=== PATIENT | male | born 1945 | race Two or more races ===

== ENCOUNTER 2020-03-24 10:37 | Inpatient (IN) | payer MEDICARE ==
[~2020-03-24 10:37] MED LIST: HUMAN PROTHROMBIN COMPLX 500 UNIT/16 ML VIAL IV ONE
[2020-03-24] MEDS ORDERED: PHYTONADIONE 10 MG in SODIUM CHLORIDE 0.9% 50 ML IVPB STA (10:55)
--- NOTE | 2020-03-24 11:13 | ED ---
General Adult HPI - General Chief complaint: GI Bleed Stated complaint: GI Bleed Time Seen by Provider: 03/24/20 10:40 Source: patient, EMS, RN notes reviewed, old records reviewed Mode of arrival: EMS Limitations: no limitations - History of Present Illness Initial comments: 74-year-old male history of A. fib on Coumadin presenting with 6 hours of bright red rectal bleeding. Patient transported by EMS stable blood pressure, he had his INR checked at home just prior to departure and it was greater than 6. He was in A. fib with RVR. Patient states that the bleeding began 6 hours prior to arrival. He is a poor historian, unable to give exact details of previous medical history. He does state he is on Coumadin. - Related Data Home Medications Medication Instructions Recorded Confirmed Baclofen [Lioresal] 10 mg PO TID PRN 03/24/20 03/24/20 Cyanocobalamin (Vitamin B-12) 1,000 mcg PO DAILY 03/24/20 03/24/20 [Vitamin B-12] Digoxin 250 mcg PO DAILY 03/24/20 03/24/20 Folic Acid 1 mg PO DAILY 03/24/20 03/24/20 Furosemide [Lasix] 20 mg PO DAILY 03/24/20 03/24/20 HYDROcodone/APAP 7.5-325MG [[place] 1 tab PO TID PRN 03/24/20 03/24/20 7.5-325] Metoprolol Tartrate [Lopressor] 25 mg PO BID 03/24/20 03/24/20 Omeprazole [PriLOSEC] 20 mg PO DAILY 03/24/20 03/24/20 Potassium Chloride ER [K-Dur 20] 20 meq PO DAILY 03/24/20 03/24/20 Warfarin [Coumadin] 3 mg PO HS 03/24/20 03/24/20 Allergies Allergy/AdvReac Type Severity Reaction Status Date / Time ciprofloxacin [From Cipro] Allergy Hallucinati Verified 03/24/20 11:12 ons Review of Systems ROS Statement: Those systems with pertinent positive or pertinent negative responses have been documented in the HPI. ROS Other: All systems not noted in ROS Statement are negative. Past Medical History Past Medical History: GI Bleed History of Any Multi-Drug Resistant Organisms: ESBL, MRSA Date of last positivie culture/infection: 10/10/18-MRSA; 02/25/20-ESBL E.coli MDRO Source:: Wound-MRSA (site not specified); Urine ESBL Past Psychological History: No Psychological Hx Reported Smoking Status: Unknown if ever smoked Past Alcohol Use History: None Reported Past Drug Use History: None Reported General Exam Limitations: no limitations General appearance: lethargic, in distress Head exam: Present: atraumatic, normocephalic Eye exam: Present: normal appearance, PERRL ENT exam: Present: mucous membranes dry Neck exam: Present: normal inspection Respiratory exam: Present: normal lung sounds bilaterally. Absent: respiratory distress Cardiovascular Exam: Present: tachycardia, irregular rhythm GI/Abdominal exam: Present: soft. Absent: distended, tenderness, guarding Rectal exam: Present: bloody stool (Significant bright red rectal bleeding throu ghout the diaper as well as multiple towels. There is minimal rectal bleeding at the time of exam.) Extremities exam: Present: other (Contracted bilateral lower extremities) Neurological exam: Present: alert Psychiatric exam: Present: normal affect, normal mood Skin exam: Present: pallor Course Vital Signs 03/24/20 03/24/20 03/24/20 10:41 11:34 12:01 Temperature 97.4 F L 97.9 F Pulse Rate 126 H 126 H 105 H Respiratory 18 18 16 Rate Blood Pressure 141/97 112/76 114/77 O2 Sat by Pulse 95 100 100 Oximetry EKG Findings - EKG Comments: EKG Findings:: Differential with RVR, rate of 136, QRS duration 82, QTC 427, no ST segment elevation Medical Decision Making - Medical Decision Making 74-year-old male presenting with GI bleed, bright red rectal bleeding. There is a significant amount of blood saturating multiple towels as well as the patient's diaper. He is in A. fib with RVR he has a marginal blood pressure. He states that his INR level at home prior to departing with EMS was 6. He is started on case kcentra, vitamin K, he is given 1 unit of packed RBCs. His hemoglobin is 11.7. He has a lactic acidosis. I did discuss case with the admitting physician Dr. Del Angel, patient will be admitted to the ICU. Discussed case with gastroenterology Dr. Moreau. - Lab Data Result diagrams: 03/24/20 11:10 03/24/20 11:10 Lab Results 03/24/20 03/24/20 03/24/20 Range/Units 11:10 11:10 11:10 WBC 21.5 H (3.8-10.6) k/uL RBC 4.29 L (4.30-5.90) m/uL Hgb 11.7 L (13.0-17.5) gm/dL Hct 37.6 L (39.0-53.0) % MCV 87.5 (80.0-100.0) fL MCH 27.1 (25.0-35.0) pg MCHC 31.0 (31.0-37.0) g/dL RDW 16.0 H (11.5-15.5) % Plt Count 456 H (150-450) k/uL MPV 7.9 Neutrophils % 83 % Lymphocytes % 10 % Monocytes % 4 % Eosinophils % 2 % Basophils % 0 % Neutrophils # 17.9 H (1.3-7.7) k/uL Lymphocytes # 2.2 (1.0-4.8) k/uL Monocytes # 0.8 (0-1.0) k/uL Eosinophils # 0.4 (0-0.7) k/uL Basophils # 0.1 (0-0.2) k/uL Hypochromasia Slight PT 54.0 H (9.0-12.0) sec INR 5.4 H* (<1.2) APTT 51.0 H (22.0-30.0) sec Sodium 134 L (137-145) mmol/L Potassium 4.9 (3.5-5.1) mmol/L Chloride 103 (98-107) mmol/L Carbon Dioxide 24 (22-30) mmol/L Anion Gap 7 mmol/L BUN 14 (9-20) mg/dL Creatinine 0.87 (0.66-1.25) mg/dL Est GFR (CKD-EPI)AfAm >90 (>60 ml/min/1.73 sqM) Est GFR (CKD-EPI)NonAf 85 (>60 ml/min/1.73 sqM) Glucose 153 H (74-99) mg/dL Plasma Lactic Acid Bart (0.7-2.0) mmol/L Calcium 8.5 (8.4-10.2) mg/dL Magnesium 1.9 (1.6-2.3) mg/dL Total Bilirubin 0.8 (0.2-1.3) mg/dL AST 20 (17-59) U/L ALT 16 (4-49) U/L Alkaline Phosphatase 118 (38-126) U/L Total Protein 7.0 (6.3-8.2) g/dL Albumin 2.9 L (3.5-5.0) g/dL Blood Type Recheck Bld Type Recheck Status Spec Expiration Date 03/24/20 03/24/20 Range/Units 11:10 11:10 WBC (3.8-10.6) k/uL RBC (4.30-5.90) m/uL Hgb (13.0-17.5) gm/dL Hct (39.0-53.0) % MCV (80.0-100.0) fL MCH (25.0-35.0) pg MCHC (31.0-37.0) g/dL RDW (11.5-15.5) % Plt Count (150-450) k/uL MPV Neutrophils % % Lymphocytes % % Monocytes % % Eosinophils % % Basophils % % Neutrophils # (1.3-7.7) k/uL Lymphocytes # (1.0-4.8) k/uL Monocytes # (0-1.0) k/uL Eosinophils # (0-0.7) k/uL Basophils # (0-0.2) k/uL Hypochromasia PT (9.0-12.0) sec INR (<1.2) APTT (22.0-30.0) sec Sodium (137-145) mmol/L Potassium (3.5-5.1) mmol/L Chloride (98-107) mmol/L Carbon Dioxide (22-30) mmol/L Anion Gap mmol/L BUN (9-20) mg/dL Creatinine (0.66-1.25) mg/dL Est GFR (CKD-EPI)AfAm (>60 ml/min/1.73 sqM) Est GFR (CKD-EPI)NonAf (>60 ml/min/1.73 sqM) Glucose (74-99) mg/dL Plasma Lactic Acid Bart 4.5 H* (0.7-2.0) mmol/L Calcium (8.4-10.2) mg/dL Magnesium (1.6-2.3) mg/dL Total Bilirubin (0.2-1.3) mg/dL AST (17-59) U/L ALT (4-49) U/L Alkaline Phosphatase (38-126) U/L Total Protein (6.3-8.2) g/dL Albumin (3.5-5.0) g/dL Blood Type Recheck No Previous Record Bld Type Recheck Status CABO Indicated Spec Expiration Date 03/27/2020 - 2309 Critical Care Time Critical Care Time: Yes Total Critical Care Time: 35 Disposition Clinical Impression: Hematochezia, Supratherapeutic INR, Hemorrhagic shock, Acute blood loss anemia Disposition: ADMITTED IP TO THIS [facility] Condition: Serious Is patient prescribed a controlled substance at d/c from ED?: No Referrals: Robel Diaz MD [Primary Care Provider] - 1-2 days Decision to Admit Reason: Admit from EC Decision Date: 03/24/20 Decision Time: 12:13
[2020-03-24] MEDS ORDERED: HUMAN PROTHROMBIN COMPLX IV ONE (11:15)
[2020-03-24 11:31] LABS: Basophils # (A) 0.1 k/uL (0-0.2); Basophils % (A) 0 %; Eosinophils # (A) 0.4 k/uL (0-0.7); Eosinophils % (A) 2 %; HCT 37.6 % (39.0-53.0); HGB 11.7 gm/dL (13.0-17.5); Hypochromasia Slight; Lymphocytes # (A) 2.2 k/uL (1.0-4.8); Lymphocytes % (A) 10 %; MCH 27.1 pg (25.0-35.0); MCV 87.5 fL (80.0-100.0); Mean Platelet Volume 7.9; Monocytes # (A) 0.8 k/uL (0-1.0); Monocytes % (A) 4 %; Neutrophils # (A) 17.9 k/uL (1.3-7.7); Neutrophils % (A) 83 %; Platelet Count 456 k/uL (150-450); RBC 4.29 m/uL (4.30-5.90); WBC 21.5 k/uL (3.8-10.6)
[2020-03-24 11:39] LABS: Carbon Dioxide 24 mmol/L (22-30); Chloride 103 mmol/L (98-107); Glucose 153 mg/dL (74-99); Potassium 4.9 mmol/L (3.5-5.1); Sodium 134 mmol/L (137-145)
[2020-03-24 11:40] LABS: ALT 16 U/L (4-49); AST 20 U/L (17-59); African American GFR (CKD) >90 (>60 ml/min/1.73 sqM); Albumin 2.9 g/dL (3.5-5.0); Alkaline Phosphatase 118 U/L (38-126); Anion Gap 7 mmol/L; Blood Urea Nitrogen 14 mg/dL (9-20); Calcium 8.5 mg/dL (8.4-10.2); Magnesium 1.9 mg/dL (1.6-2.3); Non-African American GFR(CKD) 85 (>60 ml/min/1.73 sqM); Total Bilirubin 0.8 mg/dL (0.2-1.3)
[2020-03-24] MEDS ORDERED: NALOXONE 0.4 MG/ML 1 ML VIAL IV PRN ×2 (11:44→13:10)
[2020-03-24] MEDS ORDERED: PANTOPRAZOLE 40 MG/10 ML VIAL IVP STA (11:50)
[2020-03-24 11:54] LABS: INR 5.4 (<1.2)
[2020-03-24] MEDS: SODIUM CHLORIDE 0.9% 1,000 ML IV SCH ×4 (13:10→15:48)
[2020-03-24] MEDS ORDERED: LORazepam 2 MG/ML INJ IV PRN (13:10)
[2020-03-24] MEDS ORDERED: ACETAMINOPHEN TAB 325 MG TAB PO PRN (13:10)
[2020-03-24] MEDS ORDERED: MORPHINE SULFATE 4 MG/ML SYRINGE ONE (13:13)
[2020-03-24 13:24] LABS: HCT 35.9 % (39.0-53.0); HGB 11.4 gm/dL (13.0-17.5); Hypochromasia Slight; MCH 27.9 pg (25.0-35.0); MCHC 31.8 g/dL (31.0-37.0); MCV 87.5 fL (80.0-100.0); Mean Platelet Volume 7.8; Platelet Count 374 k/uL (150-450); RDW 15.7 % (11.5-15.5)
--- NOTE | 2020-03-24 14:20 | P.CNPUL ---
History of Present Illness Consult date: 03/24/20 Chief complaint: GI bleeding History of present illness: Is a 74-year-old male patient with known history of chronic atrial fibrillation has been maintained on long-term and to coagulation with warfarin. The patient presented to the emergency department with bright red blood in his rectum. Obviously patient was having GI bleed and this started approximately 6 hours prior to the coming into the emergency. The patient transported via EMS to the emergency department. At the time of arrival, his INR was at 5.4 with a PT of 54 and a PTT of 51.0. Initial hemoglobin was 11.7. The patient was in atrial fibrillation with rapid ventricular response. His initial lactic acid level was at 4.5. Hemodynamically had a heart rate of 126 with a blood pressure of 141/97 and the respiration of 18. The patient was given vitamin K, total of 10 mg and the patient was also given K-Centra, Another units of fresh frozen plasma was also ordered in the emergency department.. No nausea. No hematemesis. No coffee-ground emesis. No abdominal pain or distention. . No intake of aspirin or any other antiplatelet agents. The patient admits to take a few tablets of nonsteroidal anti-inflammatory medications approximately a week ago as the patsy ent was having pain. 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 He does have chronic contractures of the upper and lower extremity as the patient has a component of quadriplegia, exact cause is not known to me at this point in time.. No previous history of GI bleeding. His last colonoscopy was done more than 5 years ago at [facility] the results of no known to us at this point in time. No 70 peptic ulcer disease. Review of Systems Constitutional: Denies chills, Denies fever Eyes: denies as per HPI, denies blurred vision, denies bulging eye, denies decreased vision, denies diplopia, denies discharge, denies dry eye, denies irritation, denies itching, denies pain, denies photophobia, denies loss of peripheral vision, denies loss of vision, denies tunnel vision/blind spots Ears: right: decreased hearing, deny: ear discharge, earache, tinnitus Ears, nose, mouth and throat: Reports as per HPI Breasts: absent: as per HPI, gynecomastia Cardiovascular: Reports dyspnea on exertion Respiratory: Reports as per HPI Gastrointestinal: Reports BRBPR Genitourinary: Reports as per HPI Musculoskeletal: Reports as per HPI Musculoskeletal: absent: ankle pain, ankle stiffness, ankle swelling Integumentary: Reports as per HPI Neurological: Reports as per HPI Psychiatric: Reports as per HPI Endocrine: Reports as per HPI Hematologic/Lymphatic: Reports as per HPI Allergic/Immunologic: Reports as per HPI Past Medical History Past Medical History: Atrial Fibrillation, GI Bleed Additional Past Medical History / Comment(s): Osteomyelitis, arhtritis, 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 History of Any Multi-Drug Resistant Organisms: ESBL, MRSA Date of last positivie culture/infection: 10/10/18-MRSA; 02/25/20-ESBL E.coli MDRO Source:: Wound-MRSA (site not specified); Urine ESBL Additional Past Surgical History / Comment(s): wisdom teeth Past Psychological History: No Psychological Hx Reported Smoking Status: Never smoker Past Alcohol Use History: None Reported Past Drug Use History: None Reported - Past Family History Mother Additional Family Medical History / Comment(s): heart disease, diabetes Medications and Allergies Home Medications Medication Instructions Recorded Confirmed Type Baclofen [Lioresal] 10 mg PO TID PRN 03/24/20 03/24/20 History Cyanocobalamin (Vitamin B-12) 1,000 mcg PO DAILY 03/24/20 03/24/20 History [Vitamin B-12] Digoxin 250 mcg PO DAILY 03/24/20 03/24/20 History Folic Acid 1 mg PO DAILY 03/24/20 03/24/20 History Furosemide [Lasix] 20 mg PO DAILY 03/24/20 03/24/20 History HYDROcodone/APAP 7.5-325MG [[place] 1 tab PO TID PRN 03/24/20 03/24/20 History 7.5-325] Metoprolol Tartrate [Lopressor] 25 mg PO BID 03/24/20 03/24/20 History Omeprazole [PriLOSEC] 20 mg PO DAILY 03/24/20 03/24/20 History Potassium Chloride ER [K-Dur 20] 20 meq PO DAILY 03/24/20 03/24/20 History Warfarin [Coumadin] 3 mg PO HS 03/24/20 03/24/20 History Allergies Allergy/AdvReac Type Severity Reaction Status Date / Time ciprofloxacin [From Cipro] Allergy Hallucinati Verified 03/24/20 11:12 ons Physical Exam Vitals: Vital Signs Temp Pulse Resp BP Pulse Ox 03/24/20 12:21 110 H 18 93/64 98 03/24/20 12:01 97.9 F 105 H 16 114/77 100 03/24/20 11:34 126 H 18 112/76 100 03/24/20 10:41 97.4 F L 126 H 18 141/97 95 Intake and Output 03/23/20 03/24/20 03/24/20 22:59 06:59 14:59 Other: Weight 83.915 kg General appearance: lethargic, not in acute respiratory distress and the patient is awake and alert and following commands and answering questions appropriately. Head exam: Head exam was generally normal. There was no scleral icterus or corneal arcus. Mucous membranes were moist. Eye exam: Present: normal appearance, PERRL ENT exam: Present: mucous membranes dry Neck exam: Present: normal inspection Respiratory exam: Lungs were clear to auscultation and percussion, and with no rmal diaphragmatic excursion. No wheezes or rales were noted. Cardiovascular Exam: Present: tachycardia, irregular rhythm, positive S1-S2 and there is no significant murmurs appreciated. GI/Abdominal exam: Present: soft. Absent: distended, tenderness, guarding Rectal exam: Present: bloody stool (Significant bright red rectal bleeding throughout the diaper as well as multiple towels. There is minimal rectal bleeding at the time of exam. Extremities exam: chronically contracted lower extremities bilaterally related to functional quadriplegia, no cyanosis or clubbing, trace edema. The patient has muscle atrophy and weakness in lower extremities and upper extremities. He is able to move his arms, unable to move his feet. He also has chronic ulceration of the lower extremities bilaterally Neurological exam: Present: alert Psychiatric exam: Present: normal affect, normal mood Skin exam: Present: pallor, the patient has chronic was in lower extremities bilaterally more so on the left and the patient has stage IV sacral decubitus ulceration, pressure ulcer. The wound is somewhat necrotic. Results - Laboratory Findings CBC and BMP: 03/24/20 12:57 03/24/20 11:10 PT/INR, D-dimer PT 54.0 sec (9.0-12.0) H 03/24/20 11:10 INR 5.4 (<1.2) H* 03/24/20 11:10 Abnormal lab findings: Abnormal Labs 03/24/20 03/24/20 03/24/20 11:10 11:10 11:10 WBC 21.5 H RBC 4.29 L Hgb 11.7 L Hct 37.6 L RDW 16.0 H Plt Count 456 H Neutrophils # 17.9 H PT 54.0 H INR 5.4 H* APTT 51.0 H Sodium 134 L Glucose 153 H Plasma Lactic Acid Bart Albumin 2.9 L Crossmatch 03/24/20 03/24/20 11:10 11:10 WBC RBC Hgb Hct RDW Plt Count Neutrophils # PT INR APTT Sodium Glucose Plasma Lactic Acid Bart 4.5 H* Albumin Crossmatch See Detail Assessment and Plan Plan: 1 acute GI bleeding, likely of a lower GI source as the patient was having bright red blood per rectum and large amounts. This wasn't further [place] by development of coagulopathy and toxic PT/INR 2 chronic atrial fibrillation with rapid ventricular response secondary to above and possibly component of hypovolemia 3 subtherapeutic PT/INR, given vitamin K and K Centra and fresh frozen plasma 4 acute blood loss anemia secondary to above. I think the patient's blood count is a reflection of hemoconcentration and the true hemoglobin order to level of hemoglobin is lower than this. 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, the exact cause is not clear to me at this point in time 6 acute leukocytosis, likely reactive 7 second decubitus ulcer, stage IV 8 lower extremity wounds, superficial Plan Give the patient total of 2 L of IV fluids normal saline Monitor hemoglobin Transfuse if there is a significant drop in hemoglobin below 8 keep the patient nothing by mouth for now Keep the patient on IV Protonix GI consultation Monitor PT/INR Monitor hemoglobin Keep the maintenance fluid of normal saline at the rate of 75 mL an hour Surgical consult regarding the sacral decubitus ulcer No need for antibiotics at this point in time. We'll continue to follow.
[2020-03-24 14:53] LABS: Appearance,Urine Clear (Clear); Bilirubin,Urine Negative (Negative); Blood,Urine Negative (Negative); Color,Urine Yellow; Glucose,Urine (UA) Negative (Negative); Ketones,Urine Negative (Negative); Leukocyte Esterase,Urine Negative (Negative); Nitrite,Urine Negative (Negative); PH, Urine 5.5 (5.0-8.0); Protein,Urine Trace (Negative); Specific Gravity,Urine 1.019 (1.001-1.035)
--- NOTE | 2020-03-24 15:28 | P.GSCN ---
History of Present Illness Consult date: 03/24/20 Reason for Consult: Stage IV sacral wound, unstageable wound to his right foot and right fourth toe. Requesting physician: Tiff Vasquez History of present illness: This is a 74-year-old gentleman who follows with Dr. Robel Diaz on an outpatient basis. The patient has a past medical history significant for chron ic atrial fibrillation and is on Coumadin for anticoagulation as an outpatient, rheumatoid arthritis and functional quadriplegia. The patient presented to the emergency department here at [facility] with complaints of bright red rectal bleeding for 6 hours prior to presentation. His initial lab results showed an INR of 5.4, PTT 54, PTT 51.0, hemoglobin 11.7 and a lactic acid level of 4.5. He denies any recent fever, chills, nausea, vomiting, hematemesis, or hemoptysis. The patient also has a history of a stage IV sacral decubitus ulcer, chronic ulcerations to his right foot and left lower extremity. He also has a chronic contracture of the right lower extremity. Due to the patient's chronic stage IV sacral decubitus ulcer and ulcerations to his bilateral lower extremities a consult was placed to wound care for further evaluation and treatment recommendations. Review of Systems A 14 point review of systems was completed was negative except as mentioned in the HPI. 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 History of Any Multi-Drug Resistant Organisms: ESBL, MRSA Year Discovered:: 10/10/18-MRSA; 02/25/20-ESBL E.coli MDRO Source:: Wound-MRSA (site not specified); Urine ESBL Additional Past Surgical History / Comment(s): wisdom teeth Past Psychological History: No Psychological Hx Reported Smoking Status: Never smoker Past Alcohol Use History: None Reported Past Drug Use History: None Reported - Past Family History Mother Additional Family Medical History / Comment(s): heart disease, diabetes Medications and Allergies Home Medications Medication Instructions Recorded Confirmed Type Baclofen [Lioresal] 10 mg PO TID PRN 03/24/20 03/24/20 History Cyanocobalamin (Vitamin B-12) 1,000 mcg PO DAILY 03/24/20 03/24/20 History [Vitamin B-12] Digoxin 250 mcg PO DAILY 03/24/20 03/24/20 History Folic Acid 1 mg PO DAILY 03/24/20 03/24/20 History Furosemide [Lasix] 20 mg PO DAILY 03/24/20 03/24/20 History HYDROcodone/APAP 7.5-325MG [[place] 1 tab PO TID PRN 03/24/20 03/24/20 History 7.5-325] Metoprolol Tartrate [Lopressor] 25 mg PO BID 03/24/20 03/24/20 History Omeprazole [PriLOSEC] 20 mg PO DAILY 03/24/20 03/24/20 History Potassium Chloride ER [K-Dur 20] 20 meq PO DAILY 03/24/20 03/24/20 History Warfarin [Coumadin] 3 mg PO HS 03/24/20 03/24/20 History Allergies Allergy/AdvReac Type Severity Reaction Status Date / Time ciprofloxacin [From Cipro] Allergy Hallucinati Verified 03/24/20 11:12 ons Surgical - Exam Vital Signs Temp Pulse Resp BP Pulse Ox 97.4 F L 126 H 18 141/97 95 03/24/20 10:41 03/24/20 10:41 03/24/20 10:41 03/24/20 10:41 03/24/20 10:41 - General Awake and alert, following commands and answering questions appropriately. Denies any complaints of pain when lying still, very tender and sensitive to touch to his bilateral lower extremities. chronically ill - Eyes PERRL, normal ocular movement, no icteric - ENT normal pinna, normal nares, normal mucosa, no hearing loss, no congestion - Neck Neck is supple. no masses, no bruits, trachea midline, no venous distension - Respiratory Lung sounds essentially clear throughout. No wheezes, rhonchi or crackles. Respirations are symmetrical and nonlabored. - Cardiovascular Irregular rhythm and controlled rate. S1 and S2 present, negative for S3, gallop or murmur. - Abdomen Abdomen is soft, nontender and nondistended. Active bowel sounds present in all 4 abdominal quadrants. No guarding or rigidity. No organomegaly appreciated. - Genitourinary Deferred - Integumentary Skin is warm and pale. Stage IV sacral decubitus ulceration, with areas of necrosis. Right lateral foot wound with eschar unstageable and to his right fourth toe. Scattered ulcerations to his left lower extremity. - Neurologic Awake, alert and oriented. - Musculoskeletal Contracture to his right lower extremity. - Psychiatric oriented to time, oriented to person, oriented to place, speech is normal, memory intact Results - Labs 03/24/20 12:57 03/24/20 11:10 Abnormal Lab Results - Last 24 Hours (Table) 03/24/20 03/24/20 03/24/20 Range/Units 11:10 11:10 11:10 WBC 21.5 H (3.8-10.6) k/uL RBC 4.29 L (4.30-5.90) m/uL Hgb 11.7 L (13.0-17.5) gm/dL Hct 37.6 L (39.0-53.0) % RDW 16.0 H (11.5-15.5) % Plt Count 456 H (150-450) k/uL Neutrophils # 17.9 H (1.3-7.7) k/uL PT 54.0 H (9.0-12.0) sec INR 5.4 H* (<1.2) APTT 51.0 H (22.0-30.0) sec Sodium 134 L (137-145) mmol/L Glucose 153 H (74-99) mg/dL Plasma Lactic Acid Bart (0.7-2.0) mmol/L Albumin 2.9 L (3.5-5.0) g/dL Urine Protein (Negative) Crossmatch 03/24/20 03/24/20 03/24/20 Range/Units 11:10 11:10 12:57 WBC 26.0 H (3.8-10.6) k/uL RBC 4.10 L (4.30-5.90) m/uL Hgb 11.4 L (13.0-17.5) gm/dL Hct 35.9 L (39.0-53.0) % RDW 15.7 H (11.5-15.5) % Plt Count (150-450) k/uL Neutrophils # (1.3-7.7) k/uL PT (9.0-12.0) sec INR (<1.2) APTT (22.0-30.0) sec Sodium (137-145) mmol/L Glucose (74-99) mg/dL Plasma Lactic Acid Bart 4.5 H* (0.7-2.0) mmol/L Albumin (3.5-5.0) g/dL Urine Protein (Negative) Crossmatch See Detail 03/24/20 03/24/20 Range/Units 14:00 14:36 WBC (3.8-10.6) k/uL RBC (4.30-5.90) m/uL Hgb (13.0-17.5) gm/dL Hct (39.0-53.0) % RDW (11.5-15.5) % Plt Count (150-450) k/uL Neutrophils # (1.3-7.7) k/uL PT (9.0-12.0) sec INR (<1.2) APTT (22.0-30.0) sec Sodium (137-145) mmol/L Glucose (74-99) mg/dL Plasma Lactic Acid Bart 2.9 H* (0.7-2.0) mmol/L Albumin (3.5-5.0) g/dL Urine Protein Trace H (Negative) Crossmatch Diabetes panel 03/24/20 Range/Units 11:10 Sodium 134 L (137-145) mmol/L Potassium 4.9 (3.5-5.1) mmol/L Chloride 103 (98-107) mmol/L Carbon Dioxide 24 (22-30) mmol/L BUN 14 (9-20) mg/dL Creatinine 0.87 (0.66-1.25) mg/dL Glucose 153 H (74-99) mg/dL Calcium 8.5 (8.4-10.2) mg/dL AST 20 (17-59) U/L ALT 16 (4-49) U/L Alkaline Phosphatase 118 (38-126) U/L Total Protein 7.0 (6.3-8.2) g/dL Albumin 2.9 L (3.5-5.0) g/dL Calcium panel 03/24/20 Range/Units 11:10 Calcium 8.5 (8.4-10.2) mg/dL Albumin 2.9 L (3.5-5.0) g/dL Pituitary panel 03/24/20 Range/Units 11:10 Sodium 134 L (137-145) mmol/L Potassium 4.9 (3.5-5.1) mmol/L Chloride 103 (98-107) mmol/L Carbon Dioxide 24 (22-30) mmol/L BUN 14 (9-20) mg/dL Creatinine 0.87 (0.66-1.25) mg/dL Glucose 153 H (74-99) mg/dL Calcium 8.5 (8.4-10.2) mg/dL Adrenal panel 03/24/20 Range/Units 11:10 Sodium 134 L (137-145) mmol/L Potassium 4.9 (3.5-5.1) mmol/L Chloride 103 (98-107) mmol/L Carbon Dioxide 24 (22-30) mmol/L BUN 14 (9-20) mg/dL Creatinine 0.87 (0.66-1.25) mg/dL Glucose 153 H (74-99) mg/dL Calcium 8.5 (8.4-10.2) mg/dL Total Bilirubin 0.8 (0.2-1.3) mg/dL AST 20 (17-59) U/L ALT 16 (4-49) U/L Alkaline Phosphatase 118 (38-126) U/L Total Protein 7.0 (6.3-8.2) g/dL Albumin 2.9 L (3.5-5.0) g/dL Assessment and Plan Assessment: 1. Chronic nonhealing sacral decubitus ulcer, stage IV 2. Lower extremity right foot unstageable wound and also to his right fourth toe 3. Acute GI bleed, more than likely secondary to coagulopathy and an INR of 5.4 4. Acute blood loss anemia, secondary to above 5. Quadriplegia related to previous spine injury 6. Acute leukocytosis, likely reactive 7. Left lower extremity superficial wounds Plan: The patient was seen and examined at his bedside in the intensive care unit by Dr. Adria Willett. His chart and diagnostics were reviewed. Recommendations for wound care to his sacral stage IV decubitus ulcer, Santyl applied daily, cover with gauze and secured with paper tape. The importance of offloading was discussed with the patient and with the nursing staff. Wound care to his right lateral foot and right fourth toe, Santyl applied daily, cover with gauze and secured with tape. Place gauze in between his toes to his bilateral feet. Honey gel to his left lower extremity superficial wounds, applied daily, cover with nonadherent dressing and Kerlix wrap and secured with paper tape. Consult dermatology to evaluate superficial wounds to his left lower extremity. The patient is not a candidate for any revascularization procedure due to his immobilization and debilitation. He will need to be followed on an outpatient basis at the wound healing center and he may benefit from a extended care facility on discharge as he will need offloading to his sacral wound as well as frequent dressing changes for wound care. Continue medical management recommendations per primary care service. More recommendations to follow based on patient's clinical course. Thank you Dr. Vasquez for this consult and we will look forward to working with you in this care of the patient. Time with Patient: Greater than 30
--- NOTE | 2020-03-24 15:29 | P.HPIM ---
History of Present Illness H&P Date: 03/24/20 Chief Complaint: Bright red blood per Rectum Patient is a 74 yo CM with a hx of A fib on coumadin, Functional quadraplegia since 2014, and chronic wounds who presented to the emergency department at the direction of his home health care nurse due to bring red blood per rectum. In the emergency department he underwent an extensive evaluation. His hemoglobin was found to be 11.7, INR 5.4, Lactic acid 4.5 and sodium 134. He was ordered for 2 units of pRBC, Kcentra, and Vitamin K IV 10 mg. He did have some transient hypotnesion which corrected with IVF. He was also noted to be in A fib with RVR. He was admitted to the ICU. On arrival to the ICU he was founf to have multiple chronic wounds with flexion contractures. 1 unti of FFP was ordered. He was also noted to have bleeding from multiple wounds on left lower extremtity. He was found to have WBC elevated at 26. Patient seen and examined at bedside and he recounts to following: He felt leaking at 0330 AM and asked for a towel, which his nurse brought him. Nurse came in AM and called the ambulance. Intermittent bleeding from streaking from bottom at home he is unsure if this was from stool or wounds. Possible hx of Colonoscopy at [facility] years ago. No light headed or dizziness, No nausea No belly pain No shortness of breath No chest pain No fevers/ chills No loss of appetite + Pain in the bottom and both knees. Review of Systems Pertinent positives and negatives as discussed in HPI, a complete review of systems was performed and all other systems are negative. 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 History of Any Multi-Drug Resistant Organisms: ESBL, MRSA Date of last positivie culture/infection: 10/10/18-MRSA; 02/25/20-ESBL E.coli MDRO Source:: Wound-MRSA (site not specified); Urine ESBL Additional Past Surgical History / Comment(s): wisdom teeth Past Psychological History: No Psychological Hx Reported Smoking Status: Never smoker Past Alcohol Use History: None Reported Past Drug Use History: None Reported Additional History: bed bound, uses a moon lift - Past Family History Mother Additional Family Medical History / Comment(s): heart disease, diabetes Medications and Allergies Home Medications Medication Instructions Recorded Confirmed Type Baclofen [Lioresal] 10 mg PO TID PRN 03/24/20 03/24/20 History Cyanocobalamin (Vitamin B-12) 1,000 mcg PO DAILY 03/24/20 03/24/20 History [Vitamin B-12] Digoxin 250 mcg PO DAILY 03/24/20 03/24/20 History Folic Acid 1 mg PO DAILY 03/24/20 03/24/20 History Furosemide [Lasix] 20 mg PO DAILY 03/24/20 03/24/20 History HYDROcodone/APAP 7.5-325MG [[place] 1 tab PO TID PRN 03/24/20 03/24/20 History 7.5-325] Metoprolol Tartrate [Lopressor] 25 mg PO BID 03/24/20 03/24/20 History Omeprazole [PriLOSEC] 20 mg PO DAILY 03/24/20 03/24/20 History Potassium Chloride ER [K-Dur 20] 20 meq PO DAILY 03/24/20 03/24/20 History Warfarin [Coumadin] 3 mg PO HS 03/24/20 03/24/20 History Allergies Allergy/AdvReac Type Severity Reaction Status Date / Time ciprofloxacin [From Cipro] Allergy Hallucinati Verified 03/24/20 11:12 ons Physical Exam Osteopathic Statement: *. No significant issues noted on an osteopathic structural exam other than those noted in the History and Physical/Consult. Vitals: Vital Signs Temp Pulse Resp BP Pulse Ox 03/24/20 12:21 110 H 18 93/64 98 03/24/20 12:01 97.9 F 105 H 16 114/77 100 03/24/20 11:34 126 H 18 112/76 100 03/24/20 10:41 97.4 F L 126 H 18 141/97 95 Intake and Output 03/23/20 03/24/20 03/24/20 22:59 06:59 14:59 Other: Weight 83.915 kg General: ill appearing, mild distress, appears at stated age Derm: Sacral wound: down to muscle tissue with fat necrosis size 9 X 5 CM Right lateral foot with necrotic tissue with eschar siz4 3 cm, round Right foot with 3,4,5 toes necrotic with sloughin Left Left leg with multiple areas of excoriation and skin sloughing, thinckening of skin with yellow caking over foot Head: atraumatic, normocephalic, symmetric Eyes: EOMI, no lid lag, anicteric sclera, pupils equal round reactive to light ENT: Nose and ears atraumatic, no thrush, no pharyngeal erythema Neck: No thyromegaly, no cervical lymphadenopathy, trachea midline, supple Mouth: no lip lesion, mucus membranes moist Cardiovascular: S1S2 reg, no murmur, positive posterior tibial pulse bilateral, no edema, capillary refill less than 2 seconds Lungs: clear to ascultation bilateral, no ronchi, no rales, no wheeze, no accessory muscle use Abdominal: soft, nontender to palpation, no guarding, no appreciable organomegaly, normal bowel sounds Ext: + gross muscle atrophy, Flexion Contractures bilateral upper extremity, Flexion contracture bilateral lower extremities with minimal extension of left knee minimal flexion of right knee. Neuro: CN II-XI grossly intact, light touch intact all 4 extremities, unable to preform finger to nose Psych: Alert, oriented, appropriate affect Results CBC & Chem 7: 03/24/20 12:57 03/24/20 11:10 Labs: Abnormal Lab Results - Last 24 Hours (Table) 03/24/20 03/24/20 03/24/20 Range/Units 11:10 11:10 11:10 WBC 21.5 H (3.8-10.6) k/uL RBC 4.29 L (4.30-5.90) m/uL Hgb 11.7 L (13.0-17.5) gm/dL Hct 37.6 L (39.0-53.0) % RDW 16.0 H (11.5-15.5) % Plt Count 456 H (150-450) k/uL Neutrophils # 17.9 H (1.3-7.7) k/uL PT 54.0 H (9.0-12.0) sec INR 5.4 H* (<1.2) APTT 51.0 H (22.0-30.0) sec Sodium 134 L (137-145) mmol/L Glucose 153 H (74-99) mg/dL Plasma Lactic Acid Bart (0.7-2.0) mmol/L Albumin 2.9 L (3.5-5.0) g/dL 03/24/20 Range/Units 11:10 WBC (3.8-10.6) k/uL RBC (4.30-5.90) m/uL Hgb (13.0-17.5) gm/dL Hct (39.0-53.0) % RDW (11.5-15.5) % Plt Count (150-450) k/uL Neutrophils # (1.3-7.7) k/uL PT (9.0-12.0) sec INR (<1.2) APTT (22.0-30.0) sec Sodium (137-145) mmol/L Glucose (74-99) mg/dL Plasma Lactic Acid Bart 4.5 H* (0.7-2.0) mmol/L Albumin (3.5-5.0) g/dL Thrombosis Risk Factor Assmnt - DVT/VTE Prophylaxis DVT/VTE Prophylaxis: Mechanical Prophylaxis ordered Assessment and Plan Assessment: Lower GI bleed with bright red blood per rectum, acute blood loss anemia - NPO - IVF - 1 unit pRBC - serial CBC - GI consult - Protonix IVP Coumadin coagulopathy with ongoing bleeding - S/P VIt K and Kcentra - FFP - Repeat INR in 6 hours with CBC Chronic A fib with RVR - conitnue digoxin - IVF - Tele - Continue to hold metoprolol due to 1 episode of hypotension Multiple ducubitus ulcers - Right foot unstageable - Sacral stage IV - Multiple areas of excoriation left leg - Suggest santyl to right foot wound - Place phelps cath - off load stage IV consider optifoam - Cover left leg with impregnated gauze. - further recs per wound care Function quadriplegia - Supportive care Leukocytosis, undetermined cause - likely related to GI bleed - ? infection of sacral ulcer - Follow CBC The patient is admitted with an anticipated greater than 2 midnight stay for evaluation of GI bleed. Surrogate decision-maker: Justino Garcia CODE STATUS:Full DVT prophylaxis: SCDs Discussed with: Patient, nursing, Jose, Dr. Amezcua, and Dr. Moreau Anticipated discharge date: 4-[address]: SNF A total of 65 minutes was spent on the care of this complex patient more than 50% of the time was spent in counseling and care coordination.
[2020-03-24] MEDS: COLLAGENASE 250 UNIT/GM OINTMENT 30 GM TUBE TOPICAL SCH (15:47)
--- NOTE | 2020-03-24 15:55 | P.CONS ---
History of Present Illness - Reason for Consult Consult date: 03/24/20 GI bleed Requesting physician: Tiff Del Angel - Chief Complaint Blood per rectum - History of Present Illness 74-year-old male with medical history significant for rheumatoid arthritis, functional quadriplegia, and chronic atrial fibrillation on Coumadin therapy who presented to the hospital with complaints of blood per rectum. Patient began having blood per rectum early this morning which continued until presentation to the emergency department. Currently in the ICU they're on no further episodes of bleeding. Patient denies any developments of abdominal pain prior to the episode but currently reports that he is somewhat uncomfortable secondary to his positioning on the bed. He denies any prior episodes of similar GI bleeding or history of peptic ulcer disease. No prior EGD reported. He denies any nausea or vomiting. He believes his last colonoscopy was at [facility] over 5 Years Ago but Is Unclear about the Details. He Does Report Occasional Use of NSAID Medications. Laboratory evaluation on presentation significant for WBC 21.5 hemoglobin 11.7, platelet count 456,000, INR 5.4, total bilirubin 0.8, alkaline phosphatase 118, AST 20 and ALT 10. Review of Systems REVIEW OF SYSTEMS: CONSTITUTIONAL: Denies any fevers, chills, weight change or fatigue. CARDIOVASCULAR: Denies any chest pain, palpitations high or low blood pressures RESPIRATORY: Denies any shortness of breath, hemoptysis or cough. GENITOURINARY: No dysuria or hematuria. MUSCULOSKELETAL: History of lower extremity contractures after osteomyelitis and rheumatoid arthritis. SKIN: Denies any new rashes or lesions, jaundice or pallor. PSYCHIATRIC: Denies any depression or anxiety. NEUROLOGY: Denies headache, denies any new focal deficits. EARS/NOSE/THROAT: No recent hearing change, congestion, nasal discharge or sore throat. EYES: No pain in eyes, discharge or change in vision. GASTROINTESTINAL: As per HPI. Past Medical History Past Medical History: GI Bleed History of Any Multi-Drug Resistant Organisms: ESBL, MRSA Year Discovered:: 10/10/18-MRSA; 02/25/20-ESBL E.coli MDRO Source:: Wound-MRSA (site not specified); Urine ESBL Past Psychological History: No Psychological Hx Reported Smoking Status: Unknown if ever smoked Past Alcohol Use History: None Reported Past Drug Use History: None Reported - Past Family History Mother Additional Family Medical History / Comment(s): heart disease, diabetes Medications and Allergies Home Medications Medication Instructions Recorded Confirmed Type Baclofen [Lioresal] 10 mg PO TID PRN 03/24/20 03/24/20 History Cyanocobalamin (Vitamin B-12) 1,000 mcg PO DAILY 03/24/20 03/24/20 History [Vitamin B-12] Digoxin 250 mcg PO DAILY 03/24/20 03/24/20 History Folic Acid 1 mg PO DAILY 03/24/20 03/24/20 History Furosemide [Lasix] 20 mg PO DAILY 03/24/20 03/24/20 History HYDROcodone/APAP 7.5-325MG [[place] 1 tab PO TID PRN 03/24/20 03/24/20 History 7.5-325] Metoprolol Tartrate [Lopressor] 25 mg PO BID 03/24/20 03/24/20 History Omeprazole [PriLOSEC] 20 mg PO DAILY 03/24/20 03/24/20 History Potassium Chloride ER [K-Dur 20] 20 meq PO DAILY 03/24/20 03/24/20 History Warfarin [Coumadin] 3 mg PO HS 03/24/20 03/24/20 History Allergies Allergy/AdvReac Type Severity Reaction Status Date / Time ciprofloxacin [From Cipro] Allergy Hallucinati Verified 03/24/20 11:12 ons Physical Exam Vitals: Vital Signs Temp Pulse Resp BP Pulse Ox 03/24/20 12:21 110 H 18 93/64 98 03/24/20 12:01 97.9 F 105 H 16 114/77 100 03/24/20 11:34 126 H 18 112/76 100 03/24/20 10:41 97.4 F L 126 H 18 141/97 95 Intake and Output 03/23/20 03/24/20 03/24/20 22:59 06:59 14:59 Other: Weight 83.915 kg On physical examination, patient appears comfortable in no apparent distress. HEAD: Normocephalic, atraumatic. EYES: No scleral icterus. No conjunctival injection. MOUTH: No lesions, tongue midline. NECK: Trachea midline, no gross abnormalities. CHEST: Decreased air entry in all lung brody. HEART: S1-S2 appreciated, regularly irregular. ABDOMEN: Soft, thin and nontender. Bowel sounds are positive. No organomegaly. No guarding or rigidity. EXTREMITIES: No pedal edema. SKIN: Bilateral lower extremity wounds currently wrapped and sacral decubitus ulcer. NEUROLOGIC: Alert and oriented x3. Results CBC & Chem 7: 03/24/20 12:57 03/24/20 11:10 Labs: Abnormal Lab Results - Last 24 Hours (Table) 03/24/20 03/24/20 03/24/20 Range/Units 11:10 11:10 11:10 WBC 21.5 H (3.8-10.6) k/uL RBC 4.29 L (4.30-5.90) m/uL Hgb 11.7 L (13.0-17.5) gm/dL Hct 37.6 L (39.0-53.0) % RDW 16.0 H (11.5-15.5) % Plt Count 456 H (150-450) k/uL Neutrophils # 17.9 H (1.3-7.7) k/uL PT 54.0 H (9.0-12.0) sec INR 5.4 H* (<1.2) APTT 51.0 H (22.0-30.0) sec Sodium 134 L (137-145) mmol/L Glucose 153 H (74-99) mg/dL Plasma Lactic Acid Bart (0.7-2.0) mmol/L Albumin 2.9 L (3.5-5.0) g/dL 03/24/20 Range/Units 11:10 WBC (3.8-10.6) k/uL RBC (4.30-5.90) m/uL Hgb (13.0-17.5) gm/dL Hct (39.0-53.0) % RDW (11.5-15.5) % Plt Count (150-450) k/uL Neutrophils # (1.3-7.7) k/uL PT (9.0-12.0) sec INR (<1.2) APTT (22.0-30.0) sec Sodium (137-145) mmol/L Glucose (74-99) mg/dL Plasma Lactic Acid Bart 4.5 H* (0.7-2.0) mmol/L Albumin (3.5-5.0) g/dL Assessment and Plan (1) Hematochezia Narrative/Plan: 74-year-old male with multiple medical comorbidities including major fibrillation on anticoagulation therapy who presented to the hospital with supratherapeutic INR and complaints of right red blood per rectum. He reports multiple episodes of painless bright red blood per rectum. No further episodes since admission. The patient's hemoglobin has remained relatively stable at 11.7. He denies any prior history of similar complaints or peptic ulcer disease. He does report occasional NSAID use with Advil, however tries not to take the medication regularly due to side effects from the medication. He believes his last colonoscopy was over 5 years ago at [facility] was unclear about the details. Unclear etiology, suspicion is for lower GI source of bleeding in the absence of elevation and BUN with differential including reticular bleed, AVM, stercoral ulcer or other etiology, rule out upper GI source of bleeding in the setting of NSAID use or other etiology. Current Visit: Yes Status: Acute Code(s): K92.1 - MELENA SNOMED Code(s): 984513226 (2) Supratherapeutic INR Current Visit: Yes Status: Acute Code(s): R79.1 - ABNORMAL COAGULATION PROFILE SNOMED Code(s): 338449853 Plan: Supportive care Nothing by mouth Continue to monitor hemoglobin and hematocrit and transfuse as needed Reversal agents ordered in the ER and by primary team for supratherapeutic INR Continue to monitor for symptoms of GI bleeding Continue PPI therapy Extensive discussion with the patient and nursing staff at bedside, and at this time the patient feels that secondary to his debility and lower extremity contractures as well as sacral ulceration he would be unable to complete a bowel prep for colonoscopy, can tentatively plan for EGD tomorrow however the patient would like to discuss with the son, with all of the risks, benefits and possible complications of the procedure explained to the patient at length If further bleeding would recommend tagged red blood cell scan for localization Thank you for allowing us to participate in the care of the patient we will continue to follow
[2020-03-24] MEDS: HYDROcodone/APAP 7.5-325MG 1 EACH TAB PO PRN ×2 (16:39→22:12)
[2020-03-24] MEDS: DIGOXIN 250 MCG TAB PO SCH (16:39)
[2020-03-24] MEDS: PANTOPRAZOLE 40 MG/10 ML VIAL IVP SCH (20:13)
[2020-03-25 00:37] LABS: Anisocytosis Slight; HCT 28.8 % (39.0-53.0); Hypochromasia Slight; MCH 28.4 pg (25.0-35.0); MCHC 31.7 g/dL (31.0-37.0); MCV 89.5 fL (80.0-100.0); Platelet Count 218 k/uL (150-450); RBC 3.22 m/uL (4.30-5.90); RDW 16.1 % (11.5-15.5); WBC 14.8 k/uL (3.8-10.6)
[2020-03-25 00:42] LABS: INR 1.2 (<1.2); Prothrombin Time 11.9 sec (9.0-12.0)
[2020-03-25 00:47] LABS: HGB 9.1 gm/dL (13.0-17.5)
[2020-03-25] MEDS: BACLOFEN 10 MG TAB PO PRN ×2 (02:35→12:27)
[2020-03-25 04:30] LABS: HCT 28.5 % (39.0-53.0); HGB 8.8 gm/dL (13.0-17.5); Hypochromasia Slight; MCH 27.5 pg (25.0-35.0); MCHC 30.8 g/dL (31.0-37.0); MCV 89.2 fL (80.0-100.0); Mean Platelet Volume 8.3; Platelet Count 218 k/uL (150-450); RDW 15.9 % (11.5-15.5); WBC 11.8 k/uL (3.8-10.6)
[2020-03-25 04:39] LABS: INR 1.1 (<1.2); Prothrombin Time 11.5 sec (9.0-12.0)
[2020-03-25 04:53] LABS: ALT 9 U/L (4-49); AST 14 U/L (17-59); African American GFR (CKD) >90 (>60 ml/min/1.73 sqM); Albumin 2.2 g/dL (3.5-5.0); Alkaline Phosphatase 80 U/L (38-126); Anion Gap 1 mmol/L; Blood Urea Nitrogen 15 mg/dL (9-20); Calcium 7.8 mg/dL (8.4-10.2); Carbon Dioxide 29 mmol/L (22-30); Chloride 105 mmol/L (98-107); Glucose 95 mg/dL (74-99); Magnesium 1.7 mg/dL (1.6-2.3); Non-African American GFR(CKD) 86 (>60 ml/min/1.73 sqM); Phosphorus 3.3 mg/dL (2.5-4.5); Potassium 4.3 mmol/L (3.5-5.1); Sodium 135 mmol/L (137-145); Total Bilirubin 1.5 mg/dL (0.2-1.3); Total Protein 5.4 g/dL (6.3-8.2)
[2020-03-25] MEDS: HYDROcodone/APAP 7.5-325MG 1 EACH TAB PO PRN (05:54)
--- NOTE | 2020-03-25 10:19 | P.PN ---
Subjective Progress Note Date: 03/25/20 Principal diagnosis: Acute GI bleed This is a 74-year-old male patient with known history of chronic atrial fibrillation has been maintained on long-term and to coagulation with warfarin. The patient presented to the emergency department with bright red blood in his rectum. Obviously patient was having GI bleed and this started approximately 6 hours prior to the coming into the emergency. The patient transported via EMS to the emergency department. At the time of arrival, his INR was at 5.4 with a PT of 54 and a PTT of 51.0. Initial hemoglobin was 11.7. The patient was in atrial fibrillation with rapid ventricular response. His initial lactic acid level was at 4.5. Hemodynamically had a heart rate of 126 with a blood pressure of 141/97 and the respiration of 18. The patient was given vitamin K, total of 10 mg and the patient was also given K-Centra, Another units of fresh frozen plasma was also ordered in the emergency department.. No nausea. No hemate mesis. No coffee-ground emesis. No abdominal pain or distention. . No intake of aspirin or any other antiplatelet agents. The patient admits to take a few tablets of nonsteroidal anti-inflammatory medications approximately a week ago as the patient was having pain. 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 He does have chronic contractures of the upper and lower extremity as the patient has a component of quadriplegia, exact cause is not known to me at this point in time.. No previous history of GI bleeding. His last colonoscopy was done more than 5 years ago at [facility] the results of no known to us at this point in time. No 70 peptic ulcer disease. The patient is seen today 03/25/2020 in follow-up in the intensive care unit. He is currently awake and alert in no acute distress. Resting comfortably in bed. He is on room air maintain O2 saturations in the 90s. He has a 0.9 normal sensory and 75 ML's per hour. His current hemoglobin is 8.8. No noted signs of upper or lower GI bleeding currently. EGD is planned for today. He does have a stage IV decubitus ulcers and colon prep for colonoscopy is not advised at this time. White count 11.8. INR 1.1. Sodium 135. Potassium 4.3. Creatinine 0.85. Albumin 2.2. Dig level 2.0. Remains on IV Protonix. He remains in atrial fibrillation with a controlled ventricular rate currently in the 60s. Hemodynamically stable. Afebrile. Objective - Vital Signs Vital signs: Vital Signs Temp 97 F L 03/25/20 04:00 Pulse 60 03/25/20 07:00 Resp 8 L 03/25/20 07:00 BP 90/46 03/25/20 07:00 Pulse Ox 99 03/25/20 07:00 Intake & Output 03/24/20 03/25/20 03/25/20 18:59 06:59 18:59 Intake Total 2534 1460 75 Output Total 560 325 30 Balance 1974 1135 45 Weight 82.2 kg 85.4 kg 85.4 kg Intake: IV 2245 900 75 Sodium Chloride 0.9% 1, 2245 900 75 000 ml @ 75 mls/hr IV . [id number] [facility] Rx#:[id number] Blood Product 289 310 Ffp 24 Cpd Unit 289 [id number] Rc As-1 Unit 310 [id number] Other 250 Rc As-1 Unit 250 [id number] Output: Urine 560 325 30 Other: Voiding Method Indwelling Catheter Indwelling Catheter - Exam General appearance: Awake, alert 75-year-old gentleman, not in acute respiratory distress and following commands and answering questions appropriately. Head exam: Head exam was generally normal. There was no scleral icterus or corneal arcus. Mucous membranes were moist. Eye exam: Present: normal appearance, PERRL ENT exam: Present: mucous membranes dry Neck exam: Present: normal inspection Respiratory exam: Lungs were clear to auscultation and percussion, and with nor mal diaphragmatic excursion. No wheezes or rales were noted. Cardiovascular Exam: Present: Irregular rhythm, positive S1-S2 and there is no significant murmurs appreciated. GI/Abdominal exam: Present: soft. Absent: distended, tenderness, guarding Extremities exam: chronically contracted lower extremities bilaterally related to functional quadriplegia, no cyanosis or clubbing, trace edema. The patient has muscle atrophy and weakness in lower extremities and upper extremities. He is able to move his arms, unable to move his feet. He also has chronic ulceration of the lower extremities bilaterally Neurological exam: Present: alert Psychiatric exam: Present: normal affect, normal mood Skin exam: Present: pallor, the patient has chronic was in lower extremities bilaterally more so on the left and the patient has stage IV sacral decubitus ulceration, pressure ulcer. The wound is somewhat necrotic. - Labs CBC & Chem 7: 03/25/20 03:41 03/25/20 03:41 Labs: Abnormal Lab Results - Last 24 Hours (Table) 03/24/20 03/24/20 03/24/20 Range/Units 11:10 11:10 11:10 WBC 21.5 H (3.8-10.6) k/uL RBC 4.29 L (4.30-5.90) m/uL Hgb 11.7 L (13.0-17.5) gm/dL Hct 37.6 L (39.0-53.0) % MCHC (31.0-37.0) g/dL RDW 16.0 H (11.5-15.5) % Plt Count 456 H (150-450) k/uL Neutrophils # 17.9 H (1.3-7.7) k/uL PT 54.0 H (9.0-12.0) sec INR 5.4 H* (<1.2) APTT 51.0 H (22.0-30.0) sec Sodium 134 L (137-145) mmol/L Glucose 153 H (74-99) mg/dL Plasma Lactic Acid Bart (0.7-2.0) mmol/L Calcium (8.4-10.2) mg/dL Total Bilirubin (0.2-1.3) mg/dL AST (17-59) U/L Total Protein (6.3-8.2) g/dL Albumin 2.9 L (3.5-5.0) g/dL Urine Protein (Negative) Crossmatch 03/24/20 03/24/20 03/24/20 Range/Units 11:10 11:10 12:57 WBC 26.0 H (3.8-10.6) k/uL RBC 4.10 L (4.30-5.90) m/uL Hgb 11.4 L (13.0-17.5) gm/dL Hct 35.9 L (39.0-53.0) % MCHC (31.0-37.0) g/dL RDW 15.7 H (11.5-15.5) % Plt Count (150-450) k/uL Neutrophils # (1.3-7.7) k/uL PT (9.0-12.0) sec INR (<1.2) APTT (22.0-30.0) sec Sodium (137-145) mmol/L Glucose (74-99) mg/dL Plasma Lactic Acid Bart 4.5 H* (0.7-2.0) mmol/L Calcium (8.4-10.2) mg/dL Total Bilirubin (0.2-1.3) mg/dL AST (17-59) U/L Total Protein (6.3-8.2) g/dL Albumin (3.5-5.0) g/dL Urine Protein (Negative) Crossmatch See Detail 03/24/20 03/24/20 03/24/20 Range/Units 14:00 14:36 17:48 WBC (3.8-10.6) k/uL RBC (4.30-5.90) m/uL Hgb (13.0-17.5) gm/dL Hct (39.0-53.0) % MCHC (31.0-37.0) g/dL RDW (11.5-15.5) % Plt Count (150-450) k/uL Neutrophils # (1.3-7.7) k/uL PT (9.0-12.0) sec INR (<1.2) APTT (22.0-30.0) sec Sodium (137-145) mmol/L Glucose (74-99) mg/dL Plasma Lactic Acid Bart 2.9 H* 2.7 H* (0.7-2.0) mmol/L Calcium (8.4-10.2) mg/dL Total Bilirubin (0.2-1.3) mg/dL AST (17-59) U/L Total Protein (6.3-8.2) g/dL Albumin (3.5-5.0) g/dL Urine Protein Trace H (Negative) Crossmatch 03/25/20 03/25/20 03/25/20 Range/Units 00:19 00:19 03:41 WBC 14.8 H 11.8 H (3.8-10.6) k/uL RBC 3.22 L 3.20 L (4.30-5.90) m/uL Hgb 9.1 L D 8.8 L (13.0-17.5) gm/dL Hct 28.8 L 28.5 L (39.0-53.0) % MCHC 30.8 L (31.0-37.0) g/dL RDW 16.1 H 15.9 H (11.5-15.5) % Plt Count (150-450) k/uL Neutrophils # (1.3-7.7) k/uL PT (9.0-12.0) sec INR 1.2 H (<1.2) APTT (22.0-30.0) sec Sodium (137-145) mmol/L Glucose (74-99) mg/dL Plasma Lactic Acid Bart (0.7-2.0) mmol/L Calcium (8.4-10.2) mg/dL Total Bilirubin (0.2-1.3) mg/dL AST (17-59) U/L Total Protein (6.3-8.2) g/dL Albumin (3.5-5.0) g/dL Urine Protein (Negative) Crossmatch 03/25/20 Range/Units 03:41 WBC (3.8-10.6) k/uL RBC (4.30-5.90) m/uL Hgb (13.0-17.5) gm/dL Hct (39.0-53.0) % MCHC (31.0-37.0) g/dL RDW (11.5-15.5) % Plt Count (150-450) k/uL Neutrophils # (1.3-7.7) k/uL PT (9.0-12.0) sec INR (<1.2) APTT (22.0-30.0) sec Sodium 135 L (137-145) mmol/L Glucose (74-99) mg/dL Plasma Lactic Acid Bart (0.7-2.0) mmol/L Calcium 7.8 L (8.4-10.2) mg/dL Total Bilirubin 1.5 H (0.2-1.3) mg/dL AST 14 L (17-59) U/L Total Protein 5.4 L (6.3-8.2) g/dL Albumin 2.2 L (3.5-5.0) g/dL Urine Protein (Negative) Crossmatch Assessment and Plan Assessment: 1 Acute GI bleeding, likely of a lower GI source as the patient was having bright red blood per rectum and large amounts. Current hemoglobin 8.8. Plan for EGD today. 2 Ahronic atrial fibrillation with rapid ventricular response secondary to above and possibly component of hypovolemia 3 Subtherapeutic PT/INR, given vitamin K and K Centra and fresh frozen plasma, INR 1.1 4 acute blood loss anemia secondary to above. 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 Stock. Stable from the pulmonary and critical care standpoint Current hemoglobin 8.8 Plan is for EGD today If no active bleeding may be transferred out of the ICU later today Continue to monitor hemoglobin We will continue to follow I, the cosigning physician, performed a history & physical examination of the patient. Lungs sounds are clear. Maintaining good O2 saturations in the 90s on room air. I discussed the assessment and plan of care with my nurse practitioner, Unique Cleveland. I attest to the above note as dictated by her.
[2020-03-25] MEDS: CYANOCOBALAMIN 500 MCG TAB PO SCH (10:29)
[2020-03-25] MEDS: FOLIC ACID 1 MG TAB PO SCH (10:30)
[2020-03-25] MEDS: DIGOXIN 250 MCG TAB PO SCH (10:36)
[2020-03-25] MEDS: PANTOPRAZOLE 40 MG/10 ML VIAL IVP SCH ×2 (10:53→20:22)
[2020-03-25] MEDS: COLLAGENASE 250 UNIT/GM OINTMENT 30 GM TUBE TOPICAL SCH (10:54)
[2020-03-25] MEDS: MORPHINE SULFATE 4 MG/ML SYRINGE IV PRN ×2 (14:09→20:22)
--- NOTE | 2020-03-25 19:45 | P.PN ---
Subjective Progress Note Date: 03/25/20 (delayed charting seen at 0830) Principal diagnosis: GI bleed Patient is a 74 yo CM with a hx of A fib on coumadin, Functional quadraplegia since 2014, and chronic wounds who presented to the emergency department at the direction of his home health care nurse due to bring red blood per rectum. In the emergency department he underwent an extensive evaluation. His hemoglobin was found to be 11.7, INR 5.4, Lactic acid 4.5 and sodium 134. He was ordered for 2 units of pRBC, Kcentra, and Vitamin K IV 10 mg. He did have some transient hypotnesion which corrected with IVF. He was also noted to be in A fib with RVR. He was admitted to the ICU. On arrival to the ICU he was found to have multiple chronic wounds with flexion contractures. 1 unit of FFP was ordered. He was also noted to have bleeding from multiple wounds on left lower extremity. He was found to have WBC elevated at 26. His HgB stabilized and his bleeding stopped with reversal of her INR. General: ill appearing, no distress, appears at stated age Derm: Sacral wound: down to muscle tissue with fat necrosis size 9 X 5 CM Right lateral foot with necrotic tissue with eschar siz4 3 cm, round Right foot with 3,4,5 toes necrotic with sloughin Left Left leg with multiple areas of excoriation and skin sloughing, thinckening of skin with yellow caking over foot Head: atraumatic, normocephalic, symmetric Eyes: EOMI, no lid lag, anicteric sclera, pupils equal round reactive to light ENT: Nose and ears atraumatic, no thrush, no pharyngeal erythema Cardiovascular: S1S2 reg, no murmur, positive posterior tibial pulse bilateral, no edema, capillary refill less than 2 seconds Lungs: clear to ascultation bilateral, no ronchi, no rales, no wheeze, no accessory muscle use Abdominal: soft, nontender to palpation, no guarding, no appreciable organomegaly, normal bowel sounds Ext: + gross muscle atrophy, Flexion Contractures bilateral upper extremity, Flexion contracture bilateral lower extremities with minimal extension of left knee minimal flexion of right knee. Psych: Alert, oriented, appropriate affect Lower GI bleed with bright red blood per rectum, acute blood loss anemia - clear liquid - IVF - 1 unit pRBC - serial CBC - GI recs appreciated - Protonix IVP Coumadin coagulopathy, improved - S/P Vit K and Kcentra - FFP - Repeat INR in 6 hours with CBC Chronic A fib with RVR - hold digoxin levels due to increased levels, resume in AM at 125 mcg - IVF - Tele - Continue to hold metoprolol due to 1 episode of hypotension Multiple ducubitus ulcers - Right foot unstageable - Sacral stage IV - Multiple areas of excoriation left leg - wound care recs appreciated - turn q2h Function quadriplegia - Supportive care Leukocytosis, undetermined cause - likely related to GI bleed - ? infection of sacral ulcer - Follow CBC Discussed with: Patient, nursing, Anticipated discharge date: 4-[address]: SNF A total of 25 minutes was spent on the care of this complex patient more than 50% of the time was spent in counseling and care coordination. Objective - Vital Signs Vital signs: Vital Signs Temp 97 F L 03/25/20 04:00 Pulse 66 03/25/20 12:00 Resp 13 03/25/20 12:00 BP 90/55 03/25/20 12:00 Pulse Ox 99 03/25/20 12:00 Intake & Output 03/24/20 03/25/20 03/25/20 18:59 06:59 18:59 Intake Total 2534 1460 375 Output Total 560 325 175 Balance 1974 1135 200 Weight 82.2 kg 85.4 kg 85.4 kg Intake: IV 2245 900 375 Sodium Chloride 0.9% 1, 2245 900 375 000 ml @ 75 mls/hr IV . [id number] [facility] Rx#:[id number] Blood Product 289 310 Ffp 24 Cpd Unit 289 [id number] Rc As-1 Unit 310 [id number] Other 250 Rc As-1 Unit 250 [id number] Output: Urine 560 325 175 Other: Voiding Method Indwelling Catheter Indwelling Catheter Indwelling Catheter - Labs CBC & Chem 7: 03/25/20 03:41 03/25/20 03:41 Labs: Abnormal Lab Results - Last 24 Hours (Table) 03/24/20 03/24/20 03/24/20 Range/Units 11:10 14:00 14:36 WBC (3.8-10.6) k/uL RBC (4.30-5.90) m/uL Hgb (13.0-17.5) gm/dL Hct (39.0-53.0) % MCHC (31.0-37.0) g/dL RDW (11.5-15.5) % INR (<1.2) Sodium (137-145) mmol/L Plasma Lactic Acid Bart 2.9 H* (0.7-2.0) mmol/L Calcium (8.4-10.2) mg/dL Total Bilirubin (0.2-1.3) mg/dL AST (17-59) U/L Total Protein (6.3-8.2) g/dL Albumin (3.5-5.0) g/dL Urine Protein Trace H (Negative) Crossmatch See Detail 03/24/20 03/25/20 03/25/20 Range/Units 17:48 00:19 00:19 WBC 14.8 H (3.8-10.6) k/uL RBC 3.22 L (4.30-5.90) m/uL Hgb 9.1 L D (13.0-17.5) gm/dL Hct 28.8 L (39.0-53.0) % MCHC (31.0-37.0) g/dL RDW 16.1 H (11.5-15.5) % INR 1.2 H (<1.2) Sodium (137-145) mmol/L Plasma Lactic Acid Bart 2.7 H* (0.7-2.0) mmol/L Calcium (8.4-10.2) mg/dL Total Bilirubin (0.2-1.3) mg/dL AST (17-59) U/L Total Protein (6.3-8.2) g/dL Albumin (3.5-5.0) g/dL Urine Protein (Negative) Crossmatch 03/25/20 03/25/20 Range/Units 03:41 03:41 WBC 11.8 H (3.8-10.6) k/uL RBC 3.20 L (4.30-5.90) m/uL Hgb 8.8 L (13.0-17.5) gm/dL Hct 28.5 L (39.0-53.0) % MCHC 30.8 L (31.0-37.0) g/dL RDW 15.9 H (11.5-15.5) % INR (<1.2) Sodium 135 L (137-145) mmol/L Plasma Lactic Acid Bart (0.7-2.0) mmol/L Calcium 7.8 L (8.4-10.2) mg/dL Total Bilirubin 1.5 H (0.2-1.3) mg/dL AST 14 L (17-59) U/L Total Protein 5.4 L (6.3-8.2) g/dL Albumin 2.2 L (3.5-5.0) g/dL Urine Protein (Negative) Crossmatch
[2020-03-26] MEDS: SODIUM CHLORIDE 0.9% 1,000 ML IV SCH (06:26)
[2020-03-26 07:37] LABS: HGB 9.1 gm/dL (13.0-17.5); Hypochromasia Marked; MCH 28.7 pg (25.0-35.0); MCHC 31.5 g/dL (31.0-37.0); MCV 91.2 fL (80.0-100.0); Platelet Count 205 k/uL (150-450); RBC 3.18 m/uL (4.30-5.90); RDW 15.7 % (11.5-15.5); WBC 9.7 k/uL (3.8-10.6)
[2020-03-26 07:50] LABS: ALT 8 U/L (4-49); African American GFR (CKD) >90 (>60 ml/min/1.73 sqM); Albumin 2.4 g/dL (3.5-5.0); Anion Gap 2 mmol/L; Blood Urea Nitrogen 10 mg/dL (9-20); Carbon Dioxide 26 mmol/L (22-30); Chloride 106 mmol/L (98-107); Glucose 93 mg/dL (74-99); Non-African American GFR(CKD) >90 (>60 ml/min/1.73 sqM); Phosphorus 3.2 mg/dL (2.5-4.5); Sodium 134 mmol/L (137-145)
[2020-03-26 07:55] LABS: INR 1.1 (<1.2); Magnesium 1.9 mg/dL (1.6-2.3); Potassium 4.6 mmol/L (3.5-5.1); Prothrombin Time 10.9 sec (9.0-12.0)
[2020-03-26 07:56] LABS: AST 25 U/L (17-59); Alkaline Phosphatase 76 U/L (38-126)
[2020-03-26] MEDS ORDERED: BACLOFEN 10 MG TAB PO PRN (08:30)
[2020-03-26] MEDS ORDERED: DIGOXIN 125 MCG TAB PO SCH (09:00)
[2020-03-26] MEDS: PANTOPRAZOLE 40 MG/10 ML VIAL IVP SCH (09:29)
[2020-03-26] MEDS: FOLIC ACID 1 MG TAB PO SCH (09:29)
[2020-03-26] MEDS: CYANOCOBALAMIN 500 MCG TAB PO SCH (09:29)
--- NOTE | 2020-03-26 11:15 | P.PN ---
Subjective Progress Note Date: 03/26/20 Principal diagnosis: GI bleed Patient is a 74 yo CM with a hx of A fib on coumadin, Functional quadraplegia since 2014 after having osteomyelitis, and chronic wounds who presented to the emergency department at the direction of his home health care nurse due to bring red blood per rectum. In the emergency department he underwent an extensive evaluation. His hemoglobin was found to be 11.7, INR 5.4, Lactic acid 4.5 and sodium 134. He was ordered for 2 units of pRBC, Kcentra, and Vitamin K IV 10 mg. He did have some transient hypotnesion which corrected with IVF. He was also noted to be in A fib with RVR. He was admitted to the ICU. On arrival to the ICU he was found to have multiple chronic wounds with flexion contractures. 1 unit of FFP was ordered. He was also noted to have bleeding from multiple wounds on left lower extremity. He was found to have WBC elevated at 26. His HgB stabilized and his bleeding stopped with reversal of his INR. He was seen by wounds care who recommended derm consult which will have to be done as outpatient, as derm is unavailable at the hospital. He was seen by GI and he elected to not underog colonoscopy due to his bleeding being resolved. His metoprolol was held at admission due to hypotension, dig was thne held ith level of 2 and bradycardia. He started to develop pauses of 4 seconds with normal electrolytes and cardio was consulted. Echo ordered for large murmur. Patient seen and examined at bedside. He still is having some pain in his right knee. He denies chest pain or shortness of breath. He states that the morphine works well for his pain. We had a very padmini discussion that I think he needs rehab as his wounds are extensive and it is clear that he needs to be turned more frequently. He refuses. I explaned worsening wounds, infections, and ultimately . He states that his family is getting him wedge pillows. I again stated that the sedges will keep him turned but that he would still need to be turned every 2 hours he again refuses. General:non toxic, no distress, appears at stated age Derm: wounds are all currently dressed and covered. Right lateral foot with necrotic tissue with eschar siz4 3 cm, round Right foot with 3,4,5 toes necrotic with sloughin Left Left leg with multiple areas of excoriation and skin sloughing, thinckening of skin with yellow caking over foot Head: atraumatic, normocephalic, symmetric Eyes: EOMI, no lid lag, anicteric sclera, pupils equal round reactive to light ENT: Nose and ears atraumatic, no thrush, no pharyngeal erythema Cardiovascular: S1S2 reg, no murmur, positive posterior tibial pulse bilateral, no edema, capillary refill less than 2 seconds Lungs: clear to ascultation bilateral, no ronchi, no rales, no wheeze, no accessory muscle use Abdominal: soft, nontender to palpation, no guarding, no appreciable organomegaly, normal bowel sounds Ext: + gross muscle atrophy, Flexion Contractures bilateral upper extremity, Flexion contracture bilateral lower extremities with minimal extension of left knee minimal flexion of right knee. Psych: Alert, oriented, appropriate affect Lower GI bleed with bright red blood per rectum, acute blood loss anemia - advanced to full liquids with no plan for endoscopy - IVF stopped - s/p 1 unit pRBC - serial CBC - GI recs appreciated - Protonix to PO Chronic A fib with RVR, now with pauses - Continue to hold digoxin and metoprolol ue to bradyardia and pauses - echo, tele, consult cardio Coumadin coagulopathy, resolved - S/P Vit K, Kcentra, and FFP - resume Coumadin 03/26 at low dose for A fib as suspect GI bleed was related to INR >5, will need monitoring Multiple ducubitus ulcers - Right foot unstageable - Sacral stage IV - Multiple areas of excoriation left leg - wound care recs appreciated - turn q2h Functional quadriplegia - Supportive care Leukocytosis, resolved Discussed with: Patient, nursing, Anticipated discharge date: 2-[address]: Home with home health A total of 25 minutes was spent on the care of this complex patient more than 50% of the time was spent in counseling and care coordination. Objective - Vital Signs Vital signs: Vital Signs Temp 98.4 F 03/26/20 04:37 Pulse 50 L 03/26/20 04:37 Resp 16 03/26/20 04:37 BP 124/76 03/26/20 04:37 Pulse Ox 98 03/26/20 04:37 Intake & Output 03/25/20 03/26/20 03/26/20 18:59 06:59 18:59 Intake Total 972 125 Output Total 575 520 Balance 397 -520 125 Weight 85.4 kg 89.5 kg Intake: IV 375 Sodium Chloride 0.9% 1, 375 000 ml @ 75 mls/hr IV . [id number] [facility] Rx#:[id number] Oral 597 125 Output: Urine 575 520 Other: Voiding Method Indwelling Catheter Indwelling Catheter - Labs CBC & Chem 7: 03/26/20 07:11 03/26/20 07:11 Labs: Abnormal Lab Results - Last 24 Hours (Table) 03/26/20 03/26/20 Range/Units 07:11 07:11 RBC 3.18 L (4.30-5.90) m/uL Hgb 9.1 L (13.0-17.5) gm/dL Hct 29.0 L (39.0-53.0) % RDW 15.7 H (11.5-15.5) % Sodium 134 L (137-145) mmol/L Creatinine 0.64 L (0.66-1.25) mg/dL Calcium 8.0 L (8.4-10.2) mg/dL Total Protein 6.0 L (6.3-8.2) g/dL Albumin 2.4 L (3.5-5.0) g/dL
--- NOTE | 2020-03-26 13:20 | P.PN ---
Subjective Progress Note Date: 03/25/20 Principal diagnosis: Blood per rectum, anemia of acute blood loss The patient is seen lying in bed. He denies any further blood per rectum. Tolerating diet. No acute complaints. Objective - Vital Signs Vital signs: Vital Signs Temp 97.9 F 03/25/20 16:00 Pulse 68 03/25/20 16:00 Resp 18 03/25/20 16:00 BP 101/53 03/25/20 16:00 Pulse Ox 99 03/25/20 16:00 Intake & Output 03/25/20 03/25/20 03/26/20 06:59 18:59 06:59 Intake Total 1460 972 Output Total 325 575 Balance 1135 397 Weight 85.4 kg 85.4 kg Intake: IV 900 375 Sodium Chloride 0.9% 1, 900 375 000 ml @ 75 mls/hr IV . [id number] PENDING SALE TO [facility] Rx#:[id number] Oral 597 Blood Product 310 Rc As-1 Unit 310 [id number] Other 250 Rc As-1 Unit 250 [id number] Output: Urine 325 575 Other: Voiding Method Indwelling Catheter Indwelling Catheter - Exam On physical examination, patient appears comfortable in no apparent distress. HEAD: Normocephalic, atraumatic. EYES: No scleral icterus. No conjunctival injection. MOUTH: No lesions, tongue midline. NECK: Trachea midline, no gross abnormalities. CHEST: Decreased air entry in all lung brody. HEART: S1-S2 appreciated, regularly irregular. ABDOMEN: Soft, thin and nontender. Bowel sounds are positive. No organomegaly. No guarding or rigidity. EXTREMITIES: No pedal edema. SKIN: Bilateral lower extremity wounds currently wrapped and sacral decubitus ulcer. NEUROLOGIC: Alert and oriented x3. - Labs CBC & Chem 7: 03/26/20 07:11 03/26/20 07:11 Labs: Abnormal Lab Results - Last 24 Hours (Table) 03/24/20 03/25/20 03/25/20 Range/Units 11:10 00:19 00:19 WBC 14.8 H (3.8-10.6) k/uL RBC 3.22 L (4.30-5.90) m/uL Hgb 9.1 L D (13.0-17.5) gm/dL Hct 28.8 L (39.0-53.0) % MCHC (31.0-37.0) g/dL RDW 16.1 H (11.5-15.5) % INR 1.2 H (<1.2) Sodium (137-145) mmol/L Calcium (8.4-10.2) mg/dL Total Bilirubin (0.2-1.3) mg/dL AST (17-59) U/L Total Protein (6.3-8.2) g/dL Albumin (3.5-5.0) g/dL Crossmatch See Detail 03/25/20 03/25/20 Range/Units 03:41 03:41 WBC 11.8 H (3.8-10.6) k/uL RBC 3.20 L (4.30-5.90) m/uL Hgb 8.8 L (13.0-17.5) gm/dL Hct 28.5 L (39.0-53.0) % MCHC 30.8 L (31.0-37.0) g/dL RDW 15.9 H (11.5-15.5) % INR (<1.2) Sodium 135 L (137-145) mmol/L Calcium 7.8 L (8.4-10.2) mg/dL Total Bilirubin 1.5 H (0.2-1.3) mg/dL AST 14 L (17-59) U/L Total Protein 5.4 L (6.3-8.2) g/dL Albumin 2.2 L (3.5-5.0) g/dL Crossmatch Assessment and Plan (1) Hematochezia Narrative/Plan: 75-year-old male with multiple medical comorbidities including major fibrillation on anticoagulation therapy who presented to the hospital with supratherapeutic INR and complaints of right red blood per rectum. He reports multiple episodes of painless bright red blood per rectum. No further episodes since admission. The patient's hemoglobin has remained relatively stable at 11.7. He denies any prior history of similar complaints or peptic ulcer disease. He does report occasional NSAID use with Advil, however tries not to take the medication regularly due to side effects from the medication. He believes his last colonoscopy was over 5 years ago at [facility] was unclear about the details. Unclear etiology, suspicion is for lower GI source of bleeding in the absence of elevation and BUN with differential including reticular bleed, AVM, stercoral ulcer or other etiology. No further bleeding and the patient's hemoglobin has been stable. Current Visit: Yes Status: Acute Code(s): K92.1 - MELENA SNOMED Code(s): 125413835 (2) Supratherapeutic INR Current Visit: Yes Status: Acute Code(s): R79.1 - ABNORMAL COAGULATION PROFILE SNOMED Code(s): 611972961 Plan: Supportive care Okay for liquid diet, if hemoglobin and hematocrit remain stable with no further bleeding can continue to advance Continue to monitor hemoglobin and hematocrit and transfuse as needed Continue to monitor for symptoms of GI bleeding Continue PPI therapy Extensive discussion with the patient and nursing staff at bedside, and at this time the patient feels that secondary to his debility and lower extremity contractures as well as sacral ulceration he would be unable to complete a bowel prep for colonoscopy, all of the risks, benefits and possible complications of both proceeding with the procedure as well as continuing medical management explained to the patient length with all of his questions answered to his satisfaction, at this time is not interested in endoscopic evaluation If further bleeding would recommend tagged red blood cell scan for localization Thank you for allowing us to participate in the care of the patient we will continue to follow
--- NOTE | 2020-03-26 13:28 | PN ---
PROGRESS NOTE PULMONARY/CRITICAL CARE PROGRESS NOTE: DATE OF SERVICE: March 26, 2020. INTERVAL HISTORY: This is a 75-year-old gentleman who was admitted with a diagnosis of acute GI bleed. Likely a lower GI source. The patient was in the ICU initially and moved out of the ICU to the general medical floor. He is currently on room air. He is not having any additional bleeding. He is hoping to be discharged relatively soon from the hospital. He does have a history of chronic atrial fibrillation with RVR, quadriplegia related to a previous spine injury, acute leukocytosis, and severe rheumatoid arthritis. Currently, the patient looks well. He is resting comfortably. No major complaints. PHYSICAL EXAMINATION: VITAL SIGNS: His vital signs are reviewed. Temperature 97.9. Heart rate 54, respiratory rate 18, blood pressure 100/57 mean 71, room air saturation 94%. GENERAL: Appears in no acute distress. HEENT: Examination is grossly unremarkable. NECK: Supple. Full range of motion. No adenopathy. Neck veins are flat. CARDIOVASCULAR: Examination reveals regular rhythm and rate. Heart rate 54. S1, S2 normal. LUNGS: Reveal mostly clear breath sounds. No wheezes or rhonchi. ABDOMEN: Soft. Bowel sounds are heard. EXTREMITIES are intact. No cyanosis, clubbing, or edema. His hands have significant deformity secondary to rheumatoid arthritis. SKIN: Without rash. NEUROLOGIC: Examination is nonfocal/unchanged. LABS: Reviewed. White count 9.7, hemoglobin 9.1, hematocrit 29.0, platelet count 305,000. PT/INR 10.9 and 1.1. Sodium 134, potassium 4.6. Chloride 106, CO2 26, anion gap is 2. BUN and creatinine were 10 and 0.64. Albumin 2.4. Microbiology is negative. No recent chest x-ray. MEDICATIONS: Medications are reviewed. He is on Tylenol, baclofen, Santyl topical, vitamin B12, folic acid, [place], Ativan, morphine, Narcan, Protonix, and warfarin. ASSESSMENT: 1. Acute gastrointestinal bleed,/bright red bleeding per rectum, without recent episodes of bleeding. 2. Chronic atrial fibrillation with rapid ventricular response, currently stable. 3. Rheumatoid arthritis. 4. Acute blood loss anemia. 5. Quadriplegia secondary to previous spine injury. 6. Stage IV decubitus ulcer. 7. Lower extremity wound, superficial. PLAN: The patient is doing well. He was transferred out of the ICU. It appeared that he was going to have an EGD, but apparently none was done. Dr. Moreau did see the patient. He is not following along. The patient was also seen by surgery. No additional recommendations are made. Prognosis is guarded. We will continue to follow as needed. KATHRYN / PHILIP: [id number] /
[2020-03-26] MEDS ORDERED: WARFARIN 2 MG TAB PO SCH (18:00)
[2020-03-26] MEDS: PANTOPRAZOLE 40 MG TABLET PO SCH (18:09)
[2020-03-26] MEDS: COLLAGENASE 250 UNIT/GM OINTMENT 30 GM TUBE TOPICAL SCH (18:09)
[2020-03-26] MEDS: MORPHINE SULFATE 4 MG/ML SYRINGE IV PRN (18:10)
--- NOTE | 2020-03-26 18:58 | ECHOF ---
Referral Reason:murmur MEASUREMENTS -------- HEIGHT: 167.6 cm WEIGHT: 89.4 kg BP: 124/76 IVSd: 1.4 cm (0.6 - 1.1) LVIDd: 3.5 cm (3.9 - 5.3) LVPWd: 1.3 cm (0.6 - 1.1) IVSs: 1.9 cm LVIDs: 2.4 cm LVPWs: 1.3 cm LA Diam: 3.8 cm (2.7 - 3.8) RVIDd: 3.7 cm (< 3.3) LAESV Index (A-L): 58.75 ml/m Ao Diam: 3.8 cm (2.0 - 3.7) AV Cusp: 1.3 cm (1.5 - 2.6) EPSS: 0.6 cm AV maxP.46 mmHg AV meanP.01 mmHg AR PHT: 584 ms RAP: 5.00 mmHg RVSP: 52.28 mmHg MV EF SLOPE: 153.00 mm/s (70 - 150) MV EXCURSION: 22.17 mm (> 18.000) FINDINGS -------- Atrial fibrillation. This was a technically adequate study. The left ventricular size is normal. There is moderate concentric left ventricular hypertrophy. O verall left ventricular systolic function is normal with, an EF between 55 - 60 %. The right ventricle is mildly enlarged. LA is severely dilated >40 ml/m2 The right atrium is normal in size. There is moderate aortic valve sclerosis. There is mild aortic regurgitation. There is moderate a ortic stenosis present. Peak/mean gradient across the Aortic Valve is 62.46mmHg / 32.01mmHg. The mitral valve leaflets are mildly thickened. Mild mitral annular calcification present. There is trace to mild mitral regurgitation. Mild tricuspid regurgitation present. There is moderate pulmonary hypertension. The right ventric ular systolic pressure, as measured by Doppler, is 52.28mmHg. The pulmonic valve was not well visualized. The aortic root is dilated measuring 3.8cm. IVC Not well visulized. There is no pericardial effusion. CONCLUSIONS -------- 1. The left ventricular size is normal. 2. There is moderate concentric left ventricular hypertrophy. 3. Overall left ventricular systolic function is normal with, an EF between 55 - 60 %. 4. The right ventricle is mildly enlarged. 5. LA is severely dilated >40 ml/m2 6. There is moderate aortic valve sclerosis. 7. There is mild aortic regurgitation. 8. There is moderate aortic stenosis present. 9. Peak/mean gradient across the Aortic Valve is 62.46mmHg / 32.01mmHg. 10. The mitral valve leaflets are mildly thickened. 11. Mild mitral annular calcification present. 12. There is trace to mild mitral regurgitation. 13. Mild tricuspid regurgitation present. 14. There is moderate pulmonary hypertension. 15. The right ventricular systolic pressure, as measured by Doppler, is 52.28mmHg. 16. The aortic root is dilated measuring 3.8cm. 17. There is no pericardial effusion. FRONT OFFICE SECRETARY: Alyson Knight RDCS
--- NOTE | 2020-03-26 22:13 | P.PN ---
Subjective Progress Note Date: 03/26/20 Principal diagnosis: Blood per rectum, anemia of acute blood loss The patient is seen lying in bed. He continues to state he is had no further bleeding since presentation. He is tolerating a liquid diet. No abdominal pain reported. Objective - Vital Signs Vital signs: Vital Signs Temp 97.9 F 03/26/20 08:00 Pulse 54 L 03/26/20 08:00 Resp 18 03/26/20 08:00 BP 100/57 03/26/20 08:00 Pulse Ox 94 L 03/26/20 08:00 Intake & Output 03/25/20 03/26/20 03/26/20 18:59 06:59 18:59 Intake Total 972 125 Output Total 575 520 Balance 397 -520 125 Weight 85.4 kg 89.5 kg 89.5 kg Intake: IV 375 Sodium Chloride 0.9% 1, 375 000 ml @ 75 mls/hr IV . [id number] ON LICENSE OF [facility] Rx#:[id number] Oral 597 125 Output: Urine 575 520 Other: Voiding Method Indwelling Catheter Indwelling Catheter Indwelling Catheter - Exam On physical examination, patient appears comfortable in no apparent distress. HEAD: Normocephalic, atraumatic. EYES: No scleral icterus. No conjunctival injection. MOUTH: No lesions, tongue midline. NECK: Trachea midline, no gross abnormalities. CHEST: Decreased air entry in all lung brody. HEART: S1-S2 appreciated, regularly irregular. ABDOMEN: Soft, thin and nontender. Bowel sounds are positive. No organomegaly. No guarding or rigidity. EXTREMITIES: No pedal edema. SKIN: Bilateral lower extremity wounds currently wrapped and sacral decubitus ulcer. NEUROLOGIC: Alert and oriented x3. - Labs CBC & Chem 7: 03/26/20 07:11 03/26/20 07:11 Labs: Abnormal Lab Results - Last 24 Hours (Table) 03/26/20 03/26/20 Range/Units 07:11 07:11 RBC 3.18 L (4.30-5.90) m/uL Hgb 9.1 L (13.0-17.5) gm/dL Hct 29.0 L (39.0-53.0) % RDW 15.7 H (11.5-15.5) % Sodium 134 L (137-145) mmol/L Creatinine 0.64 L (0.66-1.25) mg/dL Calcium 8.0 L (8.4-10.2) mg/dL Total Protein 6.0 L (6.3-8.2) g/dL Albumin 2.4 L (3.5-5.0) g/dL Assessment and Plan (1) Hematochezia Narrative/Plan: 75-year-old male with multiple medical comorbidities including major fibrillation on anticoagulation therapy who presented to the hospital with supratherapeutic INR and complaints of right red blood per rectum. He reports multiple episodes of painless bright red blood per rectum. No further episodes since admission. The patient's hemoglobin has remained relatively stable at 11.7. He denies any prior history of similar complaints or peptic ulcer disease. He does report occasional NSAID use with Advil, however tries not to take the medication regularly due to side effects from the medication. He believes his last colonoscopy was over [address] [facility] was unclear about the details. Unclear etiology, suspicion is for lower GI source of bleeding in the absence of elevation and BUN with differential including reticular bleed, AVM, stercoral ulcer or other etiology. No further bleeding and the patient's hemoglobin remains stable today. Current Visit: Yes Status: Acute Code(s): K92.1 - MELENA SNOMED Code(s): 349109114 (2) Supratherapeutic INR Current Visit: Yes Status: Acute Code(s): R79.1 - ABNORMAL COAGULATION PROFILE SNOMED Code(s): 270292033 Plan: Supportive care Okay for low fiber low residual diet Continue to monitor hemoglobin and hematocrit and transfuse as needed Continue to monitor for symptoms of GI bleeding Continue PPI therapy Extensive discussion with the patient and nursing staff at bedside, and at this time the patient feels that secondary to his debility and lower extremity contractures as well as sacral ulceration he would be unable to complete a bowel prep for colonoscopy, all of the risks, benefits and possible complications of both proceeding with the procedure as well as continuing medical management explained to the patient length with all of his questions answered to his satisfaction, at this time is not interested in endoscopic evaluation Plan is for discharge of the patient home Thank you for allowing us to participate in the care of the patient, the GI service will stand by, please call us back with any questions or concerns
[2020-03-26] MEDS: HYDROcodone/APAP 10-325MG 1 EACH TAB PO PRN (22:53)
[2020-03-27] MEDS: HYDROcodone/APAP 10-325MG 1 EACH TAB PO PRN ×2 (04:14→10:16)
[2020-03-27] MEDS: PANTOPRAZOLE 40 MG TABLET PO SCH ×2 (06:32→17:58)
[2020-03-27 08:08] LABS: Anisocytosis Slight; Hypochromasia Slight; MCH 28.3 pg (25.0-35.0); MCHC 32.3 g/dL (31.0-37.0); MCV 87.8 fL (80.0-100.0); Mean Platelet Volume 8.1; Platelet Count 260 k/uL (150-450); RBC 3.19 m/uL (4.30-5.90); RDW 16.2 % (11.5-15.5); WBC 9.3 k/uL (3.8-10.6)
[2020-03-27 08:24] LABS: INR 1.2 (<1.2); Prothrombin Time 11.8 sec (9.0-12.0)
[2020-03-27 08:25] LABS: African American GFR (CKD) >90 (>60 ml/min/1.73 sqM); Anion Gap 2 mmol/L; Blood Urea Nitrogen 6 mg/dL (9-20); Calcium 8.1 mg/dL (8.4-10.2); Carbon Dioxide 29 mmol/L (22-30); Chloride 105 mmol/L (98-107); Glucose 119 mg/dL (74-99); Non-African American GFR(CKD) >90 (>60 ml/min/1.73 sqM); Potassium 3.6 mmol/L (3.5-5.1); Sodium 136 mmol/L (137-145)
--- NOTE | 2020-03-27 09:56 | P.CRDCN ---
History of Present Illness Consult date: 03/27/20 Chief complaint: GI bleeding History of present illness: This is a very pleasant 74-year-old gentleman with a past medical history significant for permanent atrial fibrillation on oral anticoagulation was Coumadin as well as history of quadriplegia as well as history of lower extremities contraction and lower extremity chronic skin changes was brought to the emergency department from an extended care facility because of GI bleeding. In the emergency department the patient underwent a workup which revealed a hemoglobin of 11.7 INR was 5.4. Subsequently the patient was seen by the GI service and the plan is not to pursue any endoscopy at this point. We consulted to see the patient mainly because of cardiac arrhythmia and mainly sinus pauses episodes with one at night around 4 seconds and 1 in the afternoon also around 4 seconds. The patient was completely asymptomatic during these episodes and he did not have any dizziness or lightheadedness and no change in mental status and no syncope. He denies any chest pain or chest discomfort. The EKG showed atrial fibrillation. When the patient presented to the emergency department he was tachycardic and he was on beta adama as well as digoxin and both were stopped. The digoxin level came in to be 2. He underwent an echocardiogram which revealed normal left ventricular systolic function was evidence of moderate aortic stenosis. At this point I would agree about continue holding any AV edwardo adama agents. 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 History of Any Multi-Drug Resistant Organisms: ESBL, MRSA Date of last positivie culture/infection: 10/10/18-MRSA; 02/25/20-ESBL E.coli MDRO Source:: Wound-MRSA (site not specified); Urine ESBL Additional Past Surgical History / Comment(s): wisdom teeth Past Psychological History: No Psychological Hx Reported Smoking Status: Unknown if ever smoked Past Alcohol Use History: None Reported Past Drug Use History: None Reported - Past Family History Mother Additional Family Medical History / Comment(s): heart disease, diabetes Medications and Allergies Home Medications Medication Instructions Recorded Confirmed Type Baclofen [Lioresal] 10 mg PO TID PRN 03/24/20 03/24/20 History Cyanocobalamin (Vitamin B-12) 1,000 mcg PO DAILY 03/24/20 03/24/20 History [Vitamin B-12] Digoxin 250 mcg PO DAILY 03/24/20 03/24/20 History Folic Acid 1 mg PO DAILY 03/24/20 03/24/20 History Furosemide [Lasix] 20 mg PO DAILY 03/24/20 03/24/20 History HYDROcodone/APAP 7.5-325MG [Kinsman 1 tab PO TID PRN 03/24/20 03/24/20 History 7.5-325] Metoprolol Tartrate [Lopressor] 25 mg PO BID 03/24/20 03/24/20 History Omeprazole [PriLOSEC] 20 mg PO DAILY 03/24/20 03/24/20 History Potassium Chloride ER [K-Dur 20] 20 meq PO DAILY 03/24/20 03/24/20 History Warfarin [Coumadin] 3 mg PO HS 03/24/20 03/24/20 History Allergies Allergy/AdvReac Type Severity Reaction Status Date / Time ciprofloxacin [From Cipro] Allergy Hallucinati Verified 03/24/20 11:12 ons Physical Exam Vitals: Vital Signs Temp Pulse Resp BP Pulse Ox 03/27/20 08:45 98 F 65 18 94/50 98 03/27/20 04:00 97.9 F 73 16 95/61 98 03/27/20 02:00 87 16 03/27/20 00:00 98.0 F 87 16 94/53 96 03/26/20 20:00 98.1 F 78 16 113/55 03/26/20 16:00 74 18 119/85 99 03/26/20 14:00 54 L 18 03/26/20 12:00 98.4 F 18 131/64 100 Intake and Output 03/26/20 03/27/20 03/27/20 22:59 06:59 14:59 Intake Total 125 125 Output Total 625 Balance 125 -625 125 Intake: Oral 125 125 Output: Urine 625 Other: Voiding Method Indwelling Catheter Indwelling Catheter Weight 87 kg - Constitutional General appearance: no acute distress - Respiratory Respiratory: bilateral: diminished - Cardiovascular Rhythm: regular Heart sounds: normal: S1, S2 Results 03/27/20 07:50 03/27/20 07:50 Coagulation 03/27/20 Range/Units 07:50 PT 11.8 (9.0-12.0) sec CBC 03/27/20 Range/Units 07:50 WBC 9.3 (3.8-10.6) k/uL RBC 3.19 L (4.30-5.90) m/uL Hgb 9.0 L (13.0-17.5) gm/dL Hct 28.0 L (39.0-53.0) % Plt Count 260 (150-450) k/uL Comprehensive Metabolic Panel 03/27/20 Range/Units 07:50 Sodium 136 L (137-145) mmol/L Potassium 3.6 (3.5-5.1) mmol/L Chloride 105 (98-107) mmol/L Carbon Dioxide 29 (22-30) mmol/L BUN 6 L (9-20) mg/dL Creatinine 0.74 (0.66-1.25) mg/dL Glucose 119 H (74-99) mg/dL Calcium 8.1 L (8.4-10.2) mg/dL Current Medications Generic Name Dose Route Start Last Admin Trade Name Freq PRN Reason Stop Dose Admin Acetaminophen 650 mg 03/24/20 13:10 Acetaminophen Tab 325 Mg Tab PO Q6HR PRN Mild Pain or Fever > 100.5 Hydrocodone Bitart/Acetaminophen 1 each 03/26/20 08:31 03/27/20 04:14 Hydrocodone/Apap 10-325mg 1 Each Tab PO 1 each Q6H PRN Administration Pain Apixaban 5 mg 03/27/20 10:00 Apixaban 5 Mg Tab PO BID WADLO Baclofen 5 mg 03/26/20 08:30 03/27/20 06:34 Baclofen 10 Mg Tab PO 5 mg TID PRN Administration Muscle Spasm Collagenase 1 applic 03/24/20 15:00 03/26/20 18:09 Collagenase 250 Unit/Gm Ointment 30 Gm Tube TOPICAL 1 applic DAILY WALDO Administration Cyanocobalamin 1,000 mcg 03/25/20 09:00 03/26/20 09:29 Cyanocobalamin 500 Mcg Tab PO 1,000 mcg DAILY WALDO Administration Folic Acid 1 mg 03/25/20 09:00 03/26/20 09:29 Folic Acid 1 Mg Tab PO 1 mg DAILY WALDO Administration Lorazepam 0.5 mg 03/24/20 13:10 Lorazepam 2 Mg/Ml Inj IV Q6HR PRN Anxiety Morphine Sulfate 4 mg 03/24/20 13:10 03/26/20 18:10 Morphine Sulfate 4 Mg/Ml Syringe IV 4 mg Q4HR PRN Administration Severe Pain Naloxone HCl 0.2 mg 03/24/20 11:44 Naloxone 0.4 Mg/Ml 1 Ml Vial IV Q2M PRN Opioid Reversal Pantoprazole Sodium 40 mg 03/26/20 17:30 03/27/20 06:32 Pantoprazole 40 Mg Tablet PO 40 mg AC-BID WALDO Administration Intake and Output 03/26/20 03/27/20 03/27/20 22:59 06:59 14:59 Intake Total 125 125 Output Total 625 Balance 125 -625 125 Intake: Oral 125 125 Output: Urine 625 Other: Voiding Method Indwelling Catheter Indwelling Catheter Weight 87 kg 03/27/20 07:50 03/27/20 07:50 Assessment and Plan Assessment: Assessment #1 GI bleeding #2 permanent atrial fibrillation on oral anticoagulation was, the #3 history of quadriplegia #4 lower extremities contraction #5 multiple comorbid conditions Plan #1 agree to change the Coumadin to one of the new oral anticoagulation agents #2 agree about holding any AV edwardo adama agents #3 monitor the heart rate and blood pressure for the next 24 hours #4 follow-up with the patient
[2020-03-27] MEDS: FOLIC ACID 1 MG TAB PO SCH (10:16)
[2020-03-27] MEDS: APIXABAN 5 MG TAB PO SCH ×2 (10:16→20:45)
[2020-03-27] MEDS: CYANOCOBALAMIN 500 MCG TAB PO SCH (10:16)
[2020-03-27] MEDS: COLLAGENASE 250 UNIT/GM OINTMENT 30 GM TUBE TOPICAL SCH (10:18)
--- NOTE | 2020-03-27 15:29 | P.PN ---
Subjective Progress Note Date: 03/27/20 (roman charting seen at 0930) Principal diagnosis: GI bleed Patient is a 74 yo CM with a hx of A fib on coumadin, Functional quadraplegia since 2014 after having osteomyelitis, and chronic wounds who presented to the emergency department at the direction of his home health care nurse due to bring red blood per rectum. In the emergency department he underwent an extensive eval uation. His hemoglobin was found to be 11.7, INR 5.4, Lactic acid 4.5 and sodium 134. He was ordered for 2 units of pRBC, Kcentra, and Vitamin K IV 10 mg. He did have some transient hypotnesion which corrected with IVF. He was also noted to be in A fib with RVR. He was admitted to the ICU. On arrival to the ICU he was found to have multiple chronic wounds with flexion contractures. 1 unit of FFP w as ordered. He was also noted to have bleeding from multiple wounds on left lower extremity. He was found to have WBC elevated at 26. His HgB stabilized and his bleeding stopped with reversal of his INR. He was seen by wounds care who recommended derm consult which will have to be done as outpatient, as derm is unavailable at the hospital. He was seen by GI and he elected to not underog colonoscopy due to his bleeding being resolved. His metoprolol was held at admission due to hypotension, dig was thne held ith level of 2 and bradycardia. He started to develop pauses of 4 seconds with normal electrolytes and cardio was consulted. Echo ordered for large murmur which showed moderate aortic sailaja nosis. Cardiology recommended continue to hold digoxin and metoprolol. Patient was restarted on Eliquis. There will be less variation with changes in appetite and diet. Patient seen and examined at bedside. He feels slightly better today. No chest pain shortness breath, nausea, or vomiting. No blood in his stool. General:non toxic, no distress, appears at stated age Derm: wounds are all currently dressed and covered. Head: atraumatic, normocephalic, symmetric Eyes: EOMI, no lid lag, anicteric sclera, pupils equal round reactive to light ENT: Nose and ears atraumatic, no thrush, no pharyngeal erythema Cardiovascular: S1S2 reg, no murmur, positive posterior tibial pulse bilateral, no edema, capillary refill less than 2 seconds Lungs: Decreased breath sounds bilateral, no ronchi, no rales, no wheeze, no accessory muscle use Abdominal: soft, nontender to palpation, no guarding, no appreciable organomegaly, normal bowel sounds Ext: + gross muscle atrophy, Flexion Contractures bilateral upper extremity, Flexion contracture bilateral lower extremities with minimal extension of left knee minimal flexion of right knee. Psych: Alert, oriented, appropriate affect Lower GI bleed with bright red blood per rectum, acute blood loss anemia - Regular diet - s/p 1 unit pRBC - Repeat CBC in a.m. - GI recs appreciated - Protonix PO Chronic A fib with RVR, now with pauses, Moderate aortic stenosis - Continue to hold digoxin and metoprolol due to bradyardia and pauses - Echo with moderate aortic stenosis -Case discussed with patient and cardiology. We will try Eliquis and monitor for signs of recurrent bleeding. This will be less variation in levels Coumadin coagulopathy, resolved - S/P Vit K, Kcentra, and FFP - resume Coumadin 03/26 at low dose for A fib as suspect GI bleed was related to INR >5, will need monitoring Multiple ducubitus ulcers - Right foot unstageable - Sacral stage IV - Multiple areas of excoriation left leg - wound care recs appreciated - turn q2h Functional quadriplegia - Supportive care Leukocytosis, resolved Discussed with: Patient, nursing, Anticipated discharge date: 1-[address]: Home with home health A total of 25 minutes was spent on the care of this complex patient more than 50% of the time was spent in counseling and care coordination. Objective - Vital Signs Vital signs: Vital Signs Temp 98.3 F 03/27/20 15:21 Pulse 77 03/27/20 15:21 Resp 24 03/27/20 15:21 BP 121/57 03/27/20 15:21 Pulse Ox 98 03/27/20 15:21 Intake & Output 03/26/20 03/27/20 03/27/20 18:59 06:59 18:59 Intake Total 375 125 Output Total 625 Balance 375 -625 125 Weight 89.5 kg 87 kg Intake: Oral 375 125 Output: Urine 625 Other: Voiding Method Indwelling Catheter Indwelling Catheter Indwelling Catheter - Labs CBC & Chem 7: 03/27/20 07:50 03/27/20 07:50 Labs: Abnormal Lab Results - Last 24 Hours (Table) 03/27/20 03/27/20 03/27/20 Range/Units 07:50 07:50 07:50 RBC 3.19 L (4.30-5.90) m/uL Hgb 9.0 L (13.0-17.5) gm/dL Hct 28.0 L (39.0-53.0) % RDW 16.2 H (11.5-15.5) % INR 1.2 H (<1.2) Sodium 136 L (137-145) mmol/L BUN 6 L (9-20) mg/dL Glucose 119 H (74-99) mg/dL Calcium 8.1 L (8.4-10.2) mg/dL
[2020-03-27] MEDS ORDERED: POTASSIUM CHLORIDE ER 20 MEQ TAB.ER PO STA (19:23)
[2020-03-27] MEDS: BACLOFEN 10 MG TAB PO SCH (20:45)
[2020-03-28] MEDS: PANTOPRAZOLE 40 MG TABLET PO SCH ×2 (06:28→16:53)
[2020-03-28 07:15] LABS: Anisocytosis Slight; HCT 28.9 % (39.0-53.0); HGB 9.3 gm/dL (13.0-17.5); Hypochromasia Slight; MCH 28.5 pg (25.0-35.0); MCHC 32.2 g/dL (31.0-37.0); MCV 88.6 fL (80.0-100.0); Mean Platelet Volume 7.7; Platelet Count 301 k/uL (150-450); RBC 3.26 m/uL (4.30-5.90); RDW 16.6 % (11.5-15.5); WBC 13.2 k/uL (3.8-10.6)
[2020-03-28 07:24] LABS: African American GFR (CKD) >90 (>60 ml/min/1.73 sqM); Anion Gap 1 mmol/L; Blood Urea Nitrogen 9 mg/dL (9-20); Calcium 8.2 mg/dL (8.4-10.2); Carbon Dioxide 29 mmol/L (22-30); Chloride 105 mmol/L (98-107); Glucose 134 mg/dL (74-99); Non-African American GFR(CKD) >90 (>60 ml/min/1.73 sqM); Potassium 4.3 mmol/L (3.5-5.1); Sodium 135 mmol/L (137-145)
[2020-03-28] MEDS: CYANOCOBALAMIN 500 MCG TAB PO SCH (08:13)
[2020-03-28] MEDS: APIXABAN 5 MG TAB PO SCH ×2 (08:13→20:53)
[2020-03-28] MEDS: FOLIC ACID 1 MG TAB PO SCH (08:13)
[2020-03-28] MEDS: COLLAGENASE 250 UNIT/GM OINTMENT 30 GM TUBE TOPICAL SCH (08:14)
[2020-03-28] MEDS: BACLOFEN 10 MG TAB PO SCH (08:14)
--- NOTE | 2020-03-28 10:07 | P.PN ---
Subjective Progress Note Date: 03/28/20 Principal diagnosis: Permanent atrial fibrillation This is a very pleasant 74-year-old gentleman with a past medical history significant for permanent atrial fibrillation on oral anticoagulation was Coumadin as well as history of quadriplegia as well as history of lower extremit ies contraction and lower extremity chronic skin changes was brought to the emergency department from an extended care facility because of GI bleeding. In the emergency department the patient underwent a workup which revealed a hemoglobin of 11.7 INR was 5.4. Subsequently the patient was seen by the GI service and the plan is not to pursue any endoscopy at this point. We consulted to see the patient mainly because of cardiac arrhythmia and mainly sinus pauses episodes with one at night around 4 seconds and 1 in the afternoon also around 4 seconds. The patient was completely asymptomatic during these episodes and he did not have any dizziness or lightheadedness and no change in mental status and no syncope. He denies any chest pain or chest discomfort. The EKG showed atrial fibrillation. When the patient presented to the emergency department he was tachycardic and he was on beta adama as well as digoxin and both were stopped. The digoxin level came in to be 2. He underwent an echocardiogram which revealed normal left ventricular systolic function was evidence of moderate aortic stenosis. The patient was seen this morning 03/28/2020. He is asymptomatic from the cardiac standpoint of view. He is in atrial fibrillation was controlled heart rate. He was started on Eliquis at 5 mg by mouth twice a day. From the cardiac standpoint of view, the patient can be discharged home in the next 24 hours. He is not on any AV edwardo adama agents. We need to continue monitor the heart rate just to make sure the patient won't go tachycardic after we held the beta adama as well as digoxin. Objective - Vital Signs Vital signs: Vital Signs Temp 98.2 F 03/28/20 08:09 Pulse 79 03/28/20 08:09 Resp 18 03/28/20 08:09 BP 124/67 03/28/20 08:09 Pulse Ox 97 03/28/20 08:09 Intake & Output 03/27/20 03/28/20 03/28/20 18:59 06:59 18:59 Intake Total 250 360 Output Total 450 300 Balance -200 -300 360 Weight 88 kg Intake: Oral 250 360 Output: Urine 450 300 Uretheral (Javier) 300 Other: Voiding Method Indwelling Catheter Indwelling Catheter Indwelling Catheter - Constitutional General appearance: Present: no acute distress - Respiratory Respiratory: bilateral: CTA - Cardiovascular Rhythm: irregularly irregular Heart sounds: normal: S1, S2 Abnormal Heart Sounds: Present: systolic murmur - Labs CBC & Chem 7: 03/28/20 06:41 03/28/20 06:41 Labs: Abnormal Lab Results - Last 24 Hours (Table) 03/28/20 03/28/20 Range/Units 06:41 06:41 WBC 13.2 H (3.8-10.6) k/uL RBC 3.26 L (4.30-5.90) m/uL Hgb 9.3 L (13.0-17.5) gm/dL Hct 28.9 L (39.0-53.0) % RDW 16.6 H (11.5-15.5) % Sodium 135 L (137-145) mmol/L Creatinine 0.64 L (0.66-1.25) mg/dL Glucose 134 H (74-99) mg/dL Calcium 8.2 L (8.4-10.2) mg/dL Assessment and Plan Assessment: Assessment #1 GI bleeding #2 permanent atrial fibrillation on oral anticoagulation was, the #3 history of quadriplegia #4 lower extremities contraction #5 multiple comorbid conditions Plan #1 continue holding AV edwardo adama agents #2 continue oral anticoagulation #3 monitor the heart rate to assess if the patient will go tachycardic #4 possible discharge in the next 24 hours
--- NOTE | 2020-03-28 12:16 | P.PN ---
Subjective Progress Note Date: 03/28/20 Principal diagnosis: GI bleed Patient is a 74 yo CM with a hx of A fib on coumadin, Functional quadraplegia since 2014 after having osteomyelitis, and chronic wounds who presented to the emergency department at the direction of his home health care nurse due to bring red blood per rectum. In the emergency department he underwent an extensive evaluation. His hemoglobin was found to be 11.7, INR 5.4, Lactic acid 4.5 and sodium 134. He was ordered for 2 units of pRBC, Kcentra, and Vitamin K IV 10 mg. He did have some transient hypotnesion which corrected with IVF. He was also noted to be in A fib with RVR. He was admitted to the ICU. On arrival to the ICU he was found to have multiple chronic wounds with flexion contractures. 1 unit of FFP was ordered. He was also noted to have bleeding from multiple wounds on left lower extremity. He was found to have WBC elevated at 26. His HgB stabilized and his bleeding stopped with reversal of his INR. He was seen by wounds care who recommended derm consult which will have to be done as outpatient, as derm is unavailable at the hospital. He was seen by GI and he elected to not underog colonoscopy due to his bleeding being resolved. His metoprolol was held at admission due to hypotension, dig was thne held ith level of 2 and bradycardia. He started to develop pauses of 4 seconds with normal electrolytes and cardio was consulted. Echo ordered for large murmur which showed moderate aortic stenosis. Cardiology recommended continue to hold digoxin and metoprolol. Patient was restarted on Eliquis. There will be less variation with changes in appetite and diet. He tolerated his first doses of eliquis well. Patient seen and examined at bedside. Doing well, eating and drinking well, no complaints currently. General:non toxic, no distress, appears at stated age Derm: wounds are all currently dressed and covered. Head: atraumatic, normocephalic, symmetric Eyes: EOMI, no lid lag, anicteric sclera, pupils equal round reactive to light ENT: Nose and ears atraumatic, no thrush, no pharyngeal erythema Cardiovascular: S1S2 reg, no murmur, positive posterior tibial pulse bilateral, no edema, capillary refill less than 2 seconds Lungs: Decreased breath sounds bilateral, no ronchi, no rales, no wheeze, no accessory muscle use Abdominal: soft, nontender to palpation, no guarding, no appreciable organomegaly, normal bowel sounds Ext: + gross muscle atrophy, Flexion Contractures bilateral upper extremity, Flexion contracture bilateral lower extremities with minimal extension of left knee minimal flexion of right knee. Psych: Alert, oriented, appropriate affect Lower GI bleed with bright red blood per rectum, acute blood loss anemia - Regular diet - s/p 1 unit pRBC - Repeat CBC in a.m. - GI recs appreciated - Protonix PO Chronic A fib with RVR, now with pauses, Moderate aortic stenosis - Continue to hold digoxin and metoprolol due to bradycardia and pauses - Echo with moderate aortic stenosis - Eliquis and monitor for signs of recurrent bleeding. This will be less variation in levels Coumadin coagulopathy, resolved - S/P Vit K, Kcentra, and FFP - resume Coumadin 03/26 at low dose for A fib as suspect GI bleed was related to INR >5, will need monitoring Multiple ducubitus ulcers - Right foot unstageable - Sacral stage IV - Multiple areas of excoriation left leg - wound care recs appreciated - turn q2h Functional quadriplegia - Supportive care Leukocytosis, resolved Discussed with: Patient, nursing, Anticipated discharge date: in AM Anticipated discharge place: Home with home health A total of 25 minutes was spent on the care of this complex patient more than 50% of the time was spent in counseling and care coordination. Objective - Vital Signs Vital signs: Vital Signs Temp 98.0 F 03/28/20 11:42 Pulse 94 03/28/20 11:42 Resp 18 03/28/20 11:42 BP 115/69 03/28/20 11:42 Pulse Ox 99 03/28/20 11:42 Intake & Output 03/27/20 03/28/20 03/28/20 18:59 06:59 18:59 Intake Total 250 360 Output Total 450 300 Balance -200 -300 360 Weight 88 kg Intake: Oral 250 360 Output: Urine 450 300 Uretheral (Javier) 300 Other: Voiding Method Indwelling Catheter Indwelling Catheter Indwelling Catheter - Labs CBC & Chem 7: 03/28/20 06:41 03/28/20 06:41 Labs: Abnormal Lab Results - Last 24 Hours (Table) 03/28/20 03/28/20 Range/Units 06:41 06:41 WBC 13.2 H (3.8-10.6) k/uL RBC 3.26 L (4.30-5.90) m/uL Hgb 9.3 L (13.0-17.5) gm/dL Hct 28.9 L (39.0-53.0) % RDW 16.6 H (11.5-15.5) % Sodium 135 L (137-145) mmol/L Creatinine 0.64 L (0.66-1.25) mg/dL Glucose 134 H (74-99) mg/dL Calcium 8.2 L (8.4-10.2) mg/dL
[2020-03-28] MEDS: BACLOFEN 10 MG TAB PO PRN (20:53)
[2020-03-29 04:35] VITALS: RESP 18
[2020-03-29] MEDS: PANTOPRAZOLE 40 MG TABLET PO SCH ×2 (06:24→17:40)
[2020-03-29 06:49] LABS: Anisocytosis Slight; HGB 10.1 gm/dL (13.0-17.5); Hypochromasia Slight; MCH 28.6 pg (25.0-35.0); MCHC 32.4 g/dL (31.0-37.0); MCV 88.3 fL (80.0-100.0); Platelet Count 369 k/uL (150-450); RBC 3.51 m/uL (4.30-5.90); RDW 16.8 % (11.5-15.5); WBC 14.8 k/uL (3.8-10.6)
[2020-03-29] MEDS: APIXABAN 5 MG TAB PO SCH ×2 (08:25→20:30)
[2020-03-29] MEDS: CYANOCOBALAMIN 500 MCG TAB PO SCH (08:25)
[2020-03-29] MEDS: COLLAGENASE 250 UNIT/GM OINTMENT 30 GM TUBE TOPICAL SCH (08:25)
[2020-03-29] MEDS: FOLIC ACID 1 MG TAB PO SCH (08:25)
--- NOTE | 2020-03-29 11:28 | P.PN ---
Subjective Progress Note Date: 03/29/20 Principal diagnosis: GI bleed Patient is a 74 yo CM with a hx of A fib on coumadin, Functional quadraplegia since 2014 after having osteomyelitis, and chronic wounds who presented to the emergency department at the direction of his home health care nurse due to bring red blood per rectum. In the emergency department he underwent an extensive evaluation. His hemoglobin was found to be 11.7, INR 5.4, Lactic acid 4.5 and sodium 134. He was ordered for 2 units of pRBC, Kcentra, and Vitamin K IV 10 mg. He did have some transient hypotnesion which corrected with IVF. He was also noted to be in A fib with RVR. He was admitted to the ICU. On arrival to the ICU he was found to have multiple chronic wounds with flexion contractures. 1 unit of FFP was ordered. He was also noted to have bleeding from multiple wounds on left lower extremity. He was found to have WBC elevated at 26. His HgB stabilized and his bleeding stopped with reversal of his INR. He was seen by wounds care who recommended derm consult which will have to be done as outpatient, as derm is unavailable at the hospital. He was seen by GI and he elected to not under go colonoscopy due to his bleeding being resolved. His metoprolol was held at admission due to hypotension, dig was also held with level of 2 and bradycardia. He started to develop pauses of 4 seconds with normal electrolytes and cardio was consulted. Echo ordered for large murmur which showed moderate aortic stenosis. Cardiology recommended continue to hold digoxin and metoprolol. Patient was restarted on Eliquis. There will be less variation with changes in appetite and diet. He tolerated his first doses of eliquis well. 03/29/20- developed abdominal pain and firmness of his abdomen. His WBC was increasing. Patient seen and examined at bedside. ABD pain, feels that he needs to have a BM. We rolled him to look as his wound and he had a large bowel movement. General:non toxic, no distress, appears at stated age Derm: Scaral wound with clean pink wound bed and mild bleeding. Head: atraumatic, normocephalic, symmetric Eyes: EOMI, no lid lag, anicteric sclera, pupils equal round reactive to light ENT: Nose and ears atraumatic, no thrush, no pharyngeal erythema Cardiovascular: S1S2 reg, no murmur, positive posterior tibial pulse bilateral, no edema, capillary refill less than 2 seconds Lungs: Decreased breath sounds bilateral, no ronchi, no rales, no wheeze, no accessory muscle use Abdominal: soft, nontender to palpation, no guarding, no appreciable organomegaly, normal bowel sounds Ext: + gross muscle atrophy, Flexion Contractures bilateral upper extremity, Flexion contracture bilateral lower extremities with minimal extension of left knee minimal flexion of right knee. Psych: Alert, oriented, appropriate affect Lower GI bleed with bright red blood per rectum, acute blood loss anemia, improved - Regular diet - tolerated eliquis X 1 day, Co Pay $45 and he is okay with cost. - s/p 1 unit pRBC - Repeat CBC in a.m. - GI recs appreciated - Protonix PO Abdominal distension - CT abdomen and plevis - improved some after bowel movement. Chronic A fib with RVR, now with pauses, Moderate aortic stenosis - Continue to hold digoxin and metoprolol due to bradycardia and pauses - Echo with moderate aortic stenosis - Eliquis and monitor for signs of recurrent bleeding. This will be less variation in levels Multiple ducubitus ulcers - Right foot unstageable - Sacral stage IV - Multiple areas of excoriation left leg - wound care recs appreciated - turn q2h Functional quadriplegia - Supportive care Leukocytosis, resolved Coumadin coagulopathy- S/P Vit K, Kcentra, and FFP, now on eliquis Discussed with: Patient, nursing Anticipated discharge date: in AM Anticipated discharge place: Home with home health A total of 25 minutes was spent on the care of this complex patient more than 50% of the time was spent in counseling and care coordination. Objective - Vital Signs Vital signs: Vital Signs Temp 97.6 F 03/29/20 08:21 Pulse 80 03/29/20 08:21 Resp 18 03/29/20 08:21 BP 132/77 03/29/20 08:21 Pulse Ox 99 03/29/20 08:21 Intake & Output 03/28/20 03/29/20 03/29/20 18:59 06:59 18:59 Intake Total 1080 240 Output Total 300 Balance 780 240 Weight 88 kg Intake: Oral 1080 240 Output: Urine 300 Other: Voiding Method Indwelling Catheter Indwelling Catheter Indwelling Catheter - Labs CBC & Chem 7: 03/29/20 06:17 03/28/20 06:41 Labs: Abnormal Lab Results - Last 24 Hours (Table) 03/29/20 Range/Units 06:17 WBC 14.8 H (3.8-10.6) k/uL RBC 3.51 L (4.30-5.90) m/uL Hgb 10.1 L (13.0-17.5) gm/dL Hct 31.0 L (39.0-53.0) % RDW 16.8 H (11.5-15.5) %
--- NOTE | 2020-03-29 11:28 | P.PN ---
Subjective Progress Note Date: 03/29/20 Principal diagnosis: Permanent atrial fibrillation This is a very pleasant 74-year-old gentleman with a past medical history significant for permanent atrial fibrillation on oral anticoagulation was Coumadin as well as history of quadriplegia as well as history of lower extremit ies contraction and lower extremity chronic skin changes was brought to the emergency department from an extended care facility because of GI bleeding. In the emergency department the patient underwent a workup which revealed a hemoglobin of 11.7 INR was 5.4. Subsequently the patient was seen by the GI service and the plan is not to pursue any endoscopy at this point. We consulted to see the patient mainly because of cardiac arrhythmia and mainly sinus pauses episodes with one at night around 4 seconds and 1 in the afternoon also around 4 seconds. The patient was completely asymptomatic during these episodes and he did not have any dizziness or lightheadedness and no change in mental status and no syncope. He denies any chest pain or chest discomfort. The EKG showed atrial fibrillation. When the patient presented to the emergency department he was tachycardic and he was on beta adama as well as digoxin and both were stopped. The digoxin level came in to be 2. He underwent an echocardiogram which revealed normal left ventricular systolic function was evidence of moderate aortic stenosis. The patient was seen today March [id number]. He remains asymptomatic from a cardiovascular standpoint of view. He is in atrial fibrillation was controlled heart rates. He has been tolerating the Eliquis very well. He is experiencing abdominal discomfort and on examination the abdomen is not soft and seems to be tender. The internal medicine team is in process of evaluating the patient regarding that. From the cardiovascular standpoint of view the patient can be discharged home if the workup on the abdomen is unremarkable. Objective - Vital Signs Vital signs: Vital Signs Temp 97.6 F 03/29/20 08:21 Pulse 80 03/29/20 08:21 Resp 18 03/29/20 08:21 BP 132/77 03/29/20 08:21 Pulse Ox 99 03/29/20 08:21 Intake & Output 03/28/20 03/29/20 03/29/20 18:59 06:59 18:59 Intake Total 1080 240 Output Total 300 Balance 780 240 Weight 88 kg Intake: Oral 1080 240 Output: Urine 300 Other: Voiding Method Indwelling Catheter Indwelling Catheter Indwelling Catheter - Constitutional General appearance: Present: no acute distress - Respiratory Respiratory: bilateral: CTA - Cardiovascular Rhythm: irregularly irregular Heart sounds: normal: S1, S2 Abnormal Heart Sounds: Present: systolic murmur - Labs CBC & Chem 7: 03/29/20 06:17 03/28/20 06:41 Labs: Abnormal Lab Results - Last 24 Hours (Table) 03/29/20 Range/Units 06:17 WBC 14.8 H (3.8-10.6) k/uL RBC 3.51 L (4.30-5.90) m/uL Hgb 10.1 L (13.0-17.5) gm/dL Hct 31.0 L (39.0-53.0) % RDW 16.8 H (11.5-15.5) % Assessment and Plan Assessment: Assessment #1 GI bleeding #2 permanent atrial fibrillation with controlled heart rate #3 history of quadriplegia #4 lower extremities contraction #5 moderate aortic stenosis Plan #1 continue holding AV edwardo adama agents #2 continue oral anticoagulation #3 follow-up with the patient on when necessary
[2020-03-29] MEDS: IOPAMIDOL CONTRAST (ORAL USE) VIAL PO PRN ×2 (13:58→14:56)
[2020-03-29] MEDS: HYDROcodone/APAP 7.5-325MG 1 EACH TAB PO PRN ×2 (15:46→23:05)
--- NOTE | 2020-03-29 16:26 | CT ---
EXAMINATION TYPE: CT abdomen pelvis wo con DATE OF EXAM: 03/29/2020 COMPARISON: None HISTORY: abdominal pain and distention CT DLP: 962 mGycm Automated exposure control for dose reduction was used. Images obtained from the diaphragm to the floor the pelvis with oral contrast only. There are small bilateral pleural effusions. There is basilar pulmonary mild infiltrate and atelectas is. Heart is slightly enlarged. There is no pericardial effusion. The stomach is intact. Liver shows no focal defect. Spleen is intact. There is no evidence of pancrea tic mass. There is no adrenal mass. There is 4.5 cm cortical cyst lateral left kidney. There is corti henok thinning left kidney. Right kidney appears to show some compensatory hypertrophy. There is no hyd ronephrosis. There is mild vascular calcification. There is no retroperitoneal adenopathy. There is F oley catheter in the urinary bladder. There is retained fecal material in the rectum that measures 8. 5 cm. I see no evidence of free air. There is retained fecal material in the large bowel with gas distentio n. There is no ascites. There is osteopenia. Lumbar vertebra have normal alignment. There is anterior wedging of T9 vertebra 40%. The bony pelvis is intact. There is bilateral hip joint space narrowing. IMPRESSION: Rectal fecal impaction with constipation and large bowel ileus. No free air. Mild basilar infiltrate and atelectasis with pleural thickening and fluid.
[2020-03-29] MEDS: BACLOFEN 10 MG TAB PO PRN (20:30)
[2020-03-30] MEDS: HYDROcodone/APAP 7.5-325MG 1 EACH TAB PO PRN (06:00)
[2020-03-30] MEDS: PANTOPRAZOLE 40 MG TABLET PO SCH (06:01)
[2020-03-30] MEDS: COLLAGENASE 250 UNIT/GM OINTMENT 30 GM TUBE TOPICAL SCH (08:02)
[2020-03-30] MEDS: FOLIC ACID 1 MG TAB PO SCH (08:02)
[2020-03-30] MEDS: APIXABAN 5 MG TAB PO SCH (08:02)
[2020-03-30] MEDS: CYANOCOBALAMIN 500 MCG TAB PO SCH (08:02)
[2020-03-30 08:07] LABS: Anisocytosis Slight; HCT 27.8 % (39.0-53.0); HGB 8.9 gm/dL (13.0-17.5); Hypochromasia Moderate; MCH 28.7 pg (25.0-35.0); MCV 89.7 fL (80.0-100.0); Mean Platelet Volume 7.7; Platelet Count 324 k/uL (150-450); RBC 3.09 m/uL (4.30-5.90); RDW 16.8 % (11.5-15.5); WBC 9.7 k/uL (3.8-10.6)
[2020-03-30 08:28] LABS: African American GFR (CKD) >90 (>60 ml/min/1.73 sqM); Anion Gap 0 mmol/L; Blood Urea Nitrogen 21 mg/dL (9-20); Carbon Dioxide 32 mmol/L (22-30); Chloride 102 mmol/L (98-107); Glucose 92 mg/dL (74-99); Non-African American GFR(CKD) >90 (>60 ml/min/1.73 sqM); Potassium 4.2 mmol/L (3.5-5.1); Sodium 134 mmol/L (137-145)
[2020-03-30 11:31] VITALS: BP 133/55; PULSE 72; TEMP 97.9
[2020-03-30 13:20] VITALS: BMI 30.2
--- NOTE | 2020-03-31 19:21 | P.DS ---
Providers Date of admission: 03/24/20 11:44 Expected date of discharge: 03/30/20 Attending physician: David Borges Consults: 03/24/20 11:48 Consult Physician Urgent Consulting Provider: Soledad Amezcua Consult Reason/Comments: GI Bleed Do you want consulting provider notified?: Already Contacted 03/24/20 14:47 Consult Physician Routine Consulting Provider: Samson Bland Consult Reason/Comments: Skin lesions left lower extremity Do you want consulting provider notified?: Yes 03/26/20 07:56 Consult Physician Routine Consulting Provider: Sushant Mcnulty Consult Reason/Comments: A fib with 4.8 sec pause Do you want consulting provider notified?: Yes Primary care physician: Robel Diaz [facility] Course: Presenting complaint: GI bleed Hospital course: Patient is a 74 yo CM with a hx of A fib on coumadin, Functional quadraplegia since 2014 after having osteomyelitis, and chronic wounds who presented to the emergency department at the direction of his home health care nurse due to bright red blood per rectum. In the emergency department he underwent an extensive evaluation. His hemoglobin was found to be 11.7, INR 5.4, Lactic acid 4.5 and sodium 134. He was ordered for 2 units of pRBC, Kcentra, and Vitamin K IV 10 mg. He did have some transient hypotnesion which corrected with IVF. He was also noted to be in A fib with RVR. He was admitted to the ICU. On arrival to the ICU he was found to have multiple chronic wounds with flexion contractures. 1 unit of FFP was ordered. He was also noted to have bleeding from multiple wounds on left lower extremity. He was found to have WBC elevated at 26. His HgB stabilized and his bleeding stopped with reversal of his INR. He was seen by wounds care who recommended derm consult which will have to be done as outpatient, as derm is unavailable at the hospital. He was seen by GI and he elected to not under go colonoscopy due to his bleeding being resolved. His metoprolol was held at admission due to hypotension, dig was also held with level of 2 and bradycardia. He started to develop pauses of 4 seconds with normal electrolytes and cardio was consulted. Echo ordered for large murmur which showed moderate aortic stenosis. Cardiology recommended continue to hold digoxin and metoprolol. Patient was restarted on Eliquis. There will be less variation with changes in appetite and diet. Patient was seen by Dr. xiao for his wounds. Today-doing well. He tolerated taking diet. Feels well. Consultation: [facility]iology associates Gastroenterology Dr. Amezcua partners from pulmonary Dr. xiao-from wound care center On examination: 97.9, 72, 18, 1 33 x 55, 99% room air Sacral wound Lungs-decreased breath sounds Extremities cross muscle atrophy, flexion contractures bilateral upper extremity, flexion contracture bilateral lower extremities with minimal extension of left knee. Lower extremity wounds. Investigations: White count 9.7 hemoglobin 8.9 platelets 324 potassium 4.2 creatinine 0.64 Computed tomography scan of the abdomen pelvis without contrast-rectal fecal impaction with constipation 2-D echocardiogram-EF 55-60%. Moderate aortic valve sclerosis. Moderate aortic stenosis. Moderate pulmonary hypertension. Concentric LVH Final diagnoses: -Acute lower GI bleed bright red blood -Persistent atrial fibrillation with a rapid ventricular rate -Moderate aortic stenosis, but sclerosis -Secondary pulmonary hypertension -Hypertensive heart disease -Sacral decubitus ulcer stage IV -Right foot unstageable ulcers -Functional quadriplegia -Sinus pause from digoxin and beta adama and bradycardia Disposition: Home. Patient Condition at Discharge: Stable Plan - Discharge Summary Discharge Rx Participant: Yes New Discharge Prescriptions: New Collagenase [Santyl] 1 applic TOPICAL DAILY applic Apixaban [Eliquis] 5 mg PO BID #60 tab Continue Folic Acid 1 mg PO DAILY Cyanocobalamin (Vitamin B-12) [Vitamin B-12] 1,000 mcg PO DAILY HYDROcodone/APAP 7.5-325MG [[place] 7.5-325] 1 tab PO TID PRN PRN Reason: Pain Baclofen [Lioresal] 10 mg PO TID PRN PRN Reason: Muscle Spasm Changed Omeprazole [PriLOSEC] 20 mg PO BID #60 Discontinued Warfarin [Coumadin] 3 mg PO HS Potassium Chloride ER [K-Dur 20] 20 meq PO DAILY Metoprolol Tartrate [Lopressor] 25 mg PO BID Furosemide [Lasix] 20 mg PO DAILY Digoxin 250 mcg PO DAILY Discharge Medication List Baclofen [Lioresal] 10 mg PO TID PRN 03/24/20 [History] Cyanocobalamin (Vitamin B-12) [Vitamin B-12] 1,000 mcg PO DAILY 03/24/20 [History] Folic Acid 1 mg PO DAILY 03/24/20 [History] HYDROcodone/APAP 7.5-325MG [[place] 7.5-325] 1 tab PO TID PRN 03/24/20 [History] Apixaban [Eliquis] 5 mg PO BID #60 tab 03/30/20 [Rx] Collagenase [Santyl] 1 applic TOPICAL DAILY applic 03/30/20 [Rx] Omeprazole [PriLOSEC] 20 mg PO BID #60 03/30/20 [Rx] Follow up Appointment(s)/Referral(s): [facility] [NON-STAFF] - Wound Healing,Center [NON-STAFF] - 1 Week (Follow-up 1 week post discharge.) [facility] [NON-STAFF] - Robel Diaz MD [Primary Care Provider] - 04/01/20 Patient Instructions/Handouts: Gastrointestinal Bleeding (DC) Activity/Diet/Wound Care/Special Instructions: behavioral health case manager - dc help wound care orders per dr xiao Discharge/Stand Alone Forms: Who Do I Call?, Community Resources, Help In The Home Discharge Disposition: HOME WITH HOME HEALTH SERVICES
== END 2020-03-30 15:54 | disposition home health service (06) | DRG 377 ==
LOC: EC 10:37 → 2SICU 11:44 → 3SCARD 03-25 14:48
PROVIDERS: ADMIT Hospitalist; ATTEND Hospitalist
PROC: 30233K1 Transfusion of Nonautologous Frozen Plasma into Peripheral Vein, Percutaneous Approach (ICD-10-PCS; principal; 2020-03-24)
PROC: 30233N1 Transfusion of Nonautologous Red Blood Cells into Peripheral Vein, Percutaneous Approach (ICD-10-PCS; principal; 2020-03-24)
DX: K92.1 Melena (principal); L89.154 Pressure ulcer of sacral region, stage 4; R57.8 Other shock; R53.2 Functional quadriplegia; I48.21 Permanent atrial fibrillation; D62 Acute posthemorrhagic anemia; E87.2 Acidosis; D68.9 Coagulation defect, unspecified; I27.20 Pulmonary hypertension, unspecified; L97.519 Non-pressure chronic ulcer of other part of right foot with unspecified severity; I27.29 Other secondary pulmonary hypertension; T45.515A Adverse effect of anticoagulants, initial encounter; M06.9 Rheumatoid arthritis, unspecified; I35.0 Nonrheumatic aortic (valve) stenosis; I11.9 Hypertensive heart disease without heart failure; Z79.899 Other long term (current) drug therapy; Z79.01 Long term (current) use of anticoagulants; Z88.1 Allergy status to other antibiotic agents; Z86.14 Personal history of Methicillin resistant Staphylococcus aureus infection; Z83.3 Family history of diabetes mellitus; Z82.49 Family history of ischemic heart disease and other diseases of the circulatory system
CPT/HCPCS: 36410; 36415; 74176; 76937; 80048; 80053; 80162; 81003; 83605; 83735; 84100; 85025; 85027; 85610; 85730; 86850; 86900; 86901; 86920; 93005; 93306; 96365; 96368; 96375; 99291

== ENCOUNTER 2020-09-09 12:31 | Inpatient (IN) | payer MEDICARE, BC ==
[2020-09-09] MEDS ORDERED: PIPERACILLIN-TAZOBACTAM 3.375 GM in SODIUM CHLORIDE 0.9% 100 ML IVPB SCH ×2 (13:11→16:30)
[2020-09-09] MEDS ORDERED: VANCOMYCIN IV PER PHARMACY 1 EACH MISC MISCELLANE PRN (13:11)
[2020-09-09] MEDS ORDERED: SODIUM CHLORIDE 0.9% 1,000 ML IV STA (13:11)
--- NOTE | 2020-09-09 13:15 | ED ---
General Adult HPI - General Chief complaint: Skin/Abscess/Foreign Body Stated complaint: Infection Time Seen by Provider: 09/09/20 12:47 Source: patient, RN notes reviewed Mode of arrival: EMS Limitations: physical limitation - History of Present Illness Initial comments: Patient is a pleasant 75-year-old male presenting to the emergency department complaining of multiple wounds. Patient has chronic wounds however they seem to be getting worse. Patient has noticed an odor. Patient states increased drainage. Patient states there is mild discomfort. Patient normally does not ambulate however does have caretakers. Wounds were last changed around 1 week ago. Patient states they did do cultures and are planning to send her results here. Patient states areas involved are right foot and left leg. No fever. - Related Data Home Medications Medication Instructions Recorded Confirmed Cyanocobalamin (Vitamin B-12) 1,000 mcg PO DAILY 03/24/20 09/09/20 [Vitamin B-12] Folic Acid 1 mg PO DAILY 03/24/20 09/09/20 HYDROcodone/APAP 7.5-325MG [[place] 1 tab PO Q6H PRN 03/24/20 09/09/20 7.5-325] Bacitracin Zinc Oint 1 applic TOPICAL BID 09/09/20 09/09/20 Baclofen [Lioresal] 20 mg PO QID 09/09/20 09/09/20 Doxycycline Hyclate 100 mg PO BID 09/09/20 09/09/20 Ferrous Sulfate [Feosol] 325 mg PO DAILY 09/09/20 09/09/20 Metoprolol Tartrate [Lopressor] 25 mg PO BID 09/09/20 09/09/20 Omeprazole [PriLOSEC] 20 mg PO DAILY 09/09/20 09/09/20 Previous Rx's Medication Instructions Recorded Apixaban [Eliquis] 5 mg PO BID #60 tab 03/30/20 Allergies Allergy/AdvReac Type Severity Reaction Status Date / Time ciprofloxacin [From Cipro] Allergy Hallucinati Verified 09/09/20 14:18 ons Review of Systems ROS Statement: Those systems with pertinent positive or pertinent negative responses have been documented in the HPI. ROS Other: All systems not noted in ROS Statement are negative. 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 History of Any Multi-Drug Resistant Organisms: ESBL, MRSA Date of last positivie culture/infection: 10/10/18-MRSA; 02/25/20-ESBL E.coli MDRO Source:: Wound-MRSA (site not specified); Urine ESBL Additional Past Surgical History / Comment(s): wisdom teeth Past Psychological History: No Psychological Hx Reported Smoking Status: Unknown if ever smoked Past Alcohol Use History: None Reported Past Drug Use History: None Reported - Past Family History Mother Additional Family Medical History / Comment(s): heart disease, diabetes General Exam Limitations: physical limitation General appearance: alert, in no apparent distress, other (Contracted extremities) Head exam: Present: atraumatic Eye exam: Present: normal appearance Neck exam: Present: normal inspection Respiratory exam: Present: normal lung sounds bilaterally Cardiovascular Exam: Present: irregular rhythm Expanded Peripheral pulses: 2+: Dorsalis Pedis (R), Dorsalis Pedis (L) GI/Abdominal exam: Present: soft. Absent: tenderness Extremities exam: Present: other (Bilateral leg wounds) Neurological exam: Present: alert, other (Extremities contracted and weak) Psychiatric exam: Present: normal affect, normal mood Skin exam: Present: other (Stage II/3-blade lateral foot ulcer with purulent drainage and foul odor. Multiple left leg stage II ulcers with purulent drainage.) Course Vital Signs 09/09/20 09/09/20 09/09/20 12:40 13:44 14:00 Temperature 98.3 F Pulse Rate 91 105 H Respiratory 18 18 16 Rate Blood Pressure 93/74 93/74 O2 Sat by Pulse 100 95 Oximetry EKG Findings - EKG Comments: EKG Findings:: A. fib with RVR, rate 109. QRS 86. QT 3:30. QTC 444. Normal axis. Normal QRS. No acute ST change. Medical Decision Making - Medical Decision Making Patient updated on plan. Dr. Borges has been paged for admission, covering for Dr. Dunn. Case was discussed with Dr. Borges, who will admit. - Lab Data Result diagrams: 09/09/20 13:43 Lab Results 09/09/20 09/09/20 09/09/20 Range/Units 13:43 13:43 13:43 WBC 9.4 (3.8-10.6) k/uL RBC 4.78 (4.30-5.90) m/uL Hgb 10.7 L (13.0-17.5) gm/dL Hct 33.9 L (39.0-53.0) % MCV 70.9 L (80.0-100.0) fL MCH 22.4 L (25.0-35.0) pg MCHC 31.6 (31.0-37.0) g/dL RDW 18.2 H (11.5-15.5) % Plt Count 331 (150-450) k/uL MPV 8.2 Neutrophils % 81 % Lymphocytes % 9 % Monocytes % 7 % Eosinophils % 3 % Basophils % 0 % Neutrophils # 7.6 (1.3-7.7) k/uL Lymphocytes # 0.8 L (1.0-4.8) k/uL Monocytes # 0.6 (0-1.0) k/uL Eosinophils # 0.2 (0-0.7) k/uL Basophils # 0.0 (0-0.2) k/uL Manual Slide Review Performed Large Platelets Present Hypochromasia Marked Anisocytosis Slight Microcytosis Marked PT 11.3 (9.0-12.0) sec INR 1.1 (<1.2) APTT 22.8 (22.0-30.0) sec Plasma Lactic Acid Bart (0.7-2.0) mmol/L Urine Color Yellow Urine Appearance Turbid (Clear) Urine pH 6.0 (5.0-8.0) Ur Specific [place] 1.013 (1.001-1.035) Urine Protein Trace H (Negative) Urine Glucose (UA) Negative (Negative) Urine Ketones Negative (Negative) Urine Blood Small H (Negative) Urine Nitrite Negative (Negative) Urine Bilirubin Negative (Negative) Urine Urobilinogen <2.0 (<2.0) mg/dL Ur Leukocyte Esterase Large H (Negative) Urine RBC 11 H (0-5) /hpf Urine WBC >182 H (0-5) /hpf Urine WBC Clumps Many H (None) /hpf Urine Bacteria Many H (None) /hpf Urine Mucus Rare H (None) /hpf 09/09/20 Range/Units 13:43 WBC (3.8-10.6) k/uL RBC (4.30-5.90) m/uL Hgb (13.0-17.5) gm/dL Hct (39.0-53.0) % MCV (80.0-100.0) fL MCH (25.0-35.0) pg MCHC (31.0-37.0) g/dL RDW (11.5-15.5) % Plt Count (150-450) k/uL MPV Neutrophils % % Lymphocytes % % Monocytes % % Eosinophils % % Basophils % % Neutrophils # (1.3-7.7) k/uL Lymphocytes # (1.0-4.8) k/uL Monocytes # (0-1.0) k/uL Eosinophils # (0-0.7) k/uL Basophils # (0-0.2) k/uL Manual Slide Review Large Platelets Hypochromasia Anisocytosis Microcytosis PT (9.0-12.0) sec INR (<1.2) APTT (22.0-30.0) sec Plasma Lactic Acid Bart 1.5 (0.7-2.0) mmol/L Urine Color Urine Appearance (Clear) Urine pH (5.0-8.0) Ur Specific [place] (1.001-1.035) Urine Protein (Negative) Urine Glucose (UA) (Negative) Urine Ketones (Negative) Urine Blood (Negative) Urine Nitrite (Negative) Urine Bilirubin (Negative) Urine Urobilinogen (<2.0) mg/dL Ur Leukocyte Esterase (Negative) Urine RBC (0-5) /hpf Urine WBC (0-5) /hpf Urine WBC Clumps (None) /hpf Urine Bacteria (None) /hpf Urine Mucus (None) /hpf - Radiology Data Radiology results: image reviewed (X-ray left tib-fib shows demineralization and chronic changes without periosteal reaction. Right foot x-ray shows diffuse osteopenia limiting sensitivity.) Disposition Clinical Impression: Foot ulcer, Urinary tract infection Disposition: ADMITTED IP TO THIS HOSP Condition: Serious Is patient prescribed a controlled substance at d/c from ED?: No Referrals: Robel Diaz MD [Primary Care Provider] - 1-2 days Decision Time: 15:14
[2020-09-09] MEDS ORDERED: VANCOMYCIN 1,500 MG in SODIUM CHLORIDE 0.9% 250 ML IVPB STA (13:18)
[2020-09-09 13:59] LABS: INR 1.1 (<1.2); Partial Thromboplastin Time 22.8 sec (22.0-30.0); Prothrombin Time 11.3 sec (9.0-12.0)
[2020-09-09 14:09] LABS: Anisocytosis Slight; Basophils % (A) 0 %; Eosinophils # (A) 0.2 k/uL (0-0.7); Eosinophils % (A) 3 %; HCT 33.9 % (39.0-53.0); HGB 10.7 gm/dL (13.0-17.5); Hypochromasia Marked; Lymphocytes # (A) 0.8 k/uL (1.0-4.8); Lymphocytes % (A) 9 %; MCH 22.4 pg (25.0-35.0); MCHC 31.6 g/dL (31.0-37.0); MCV 70.9 fL (80.0-100.0); Mean Platelet Volume 8.2; Microcytosis Marked; Monocytes # (A) 0.6 k/uL (0-1.0); Monocytes % (A) 7 %; Neutrophils # (A) 7.6 k/uL (1.3-7.7); Neutrophils % (A) 81 %; Platelet Count 331 k/uL (150-450); RBC 4.78 m/uL (4.30-5.90); RDW 18.2 % (11.5-15.5); WBC 9.4 k/uL (3.8-10.6)
[2020-09-09 14:16] LABS: Appearance,Urine Turbid (Clear); Bacteria,Urine Many /hpf; Bilirubin,Urine Negative (Negative); Blood,Urine Small (Negative); Color,Urine Yellow; Glucose,Urine (UA) Negative (Negative); Ketones,Urine Negative (Negative); Leukocyte Esterase,Urine Large (Negative); Mucus,Urine Rare /hpf; Nitrite,Urine Negative (Negative); Protein,Urine Trace (Negative); RBC,Urine 11 /hpf (0-5); Specific Gravity,Urine 1.013 (1.001-1.035); Urobilinogen,Urine <2.0 mg/dL (<2.0); WBC,Urine >182 /hpf (0-5)
[2020-09-09 14:36] LABS: Large Platelets Present
--- NOTE | 2020-09-09 14:58 | XR ---
EXAMINATION TYPE: XR tibia fibula LT DATE OF EXAM: 09/09/2020 CLINICAL HISTORY: Open wound, pain and swelling. TECHNIQUE: Two views of the right leg are obtained. COMPARISON: None. FINDINGS: Demineralization is present which is noted to lower radiographic sensitivity. There is kaylyn re narrowing with suspected some arthrodesis involving medial and lateral tibiofemoral compartments. Extensive soft tissue arterial vascular calcification is seen. Ankle joint shows marked narrowing of the tibiotalar articulation. 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 No suspicious bony destructio n or suspicious periosteal reaction identified to suggest acute osteomyelitis. IMPRESSION: As above.
[2020-09-09] MEDS ORDERED: NALOXONE 0.4 MG/ML 1 ML VIAL IV PRN (15:18)
--- NOTE | 2020-09-09 15:19 | XR ---
2 views right foot INDICATION: Wound No prior FINDINGS: The bones are diffusely, qualitatively osteopenic which limits sensitivity of plain radiograph. The fourth and fifth toes are not well seen and are markedly demineralized. There are degenerative changes throughout. Extensive vascular calcifications are noted. Osteomyelitis cannot be excluded on this plain radiograph. IMPRESSION: The bones are diffusely, qualitatively osteopenic which limits sensitivity of plain radiograph. The fourth and fifth toes are not well seen and are markedly demineralized. There are degenerative changes throughout. Extensive vascular calcifications are noted. Osteomyelitis cannot be excluded on this plain radiograph. A MTDD
[2020-09-09] MEDS ORDERED: PIPERACILLIN-TAZOBACTAM 3.375 GM in SODIUM CHLORIDE 0.9% 100 ML IVPB STA (15:46)
--- NOTE | 2020-09-09 15:48 | P.HPIM ---
History of Present Illness H&P Date: 09/09/20 Chief Complaint: Worsening leg wounds Presenting complaint: Lower extremity wounds Hospital course: Patient is a 75 yo patient a hx of A fib on eliquis, Functional quadraplegia since 2015 after having osteomyelitis, patient has visiting nurses at home that taken of his wounds. The wounds have been getting worse. Both on the left and right lower extremity. He does not follow with any infectious disease physician. Patient's had a chronic Javier catheter for last 6 months. No fever no chills. Patient had advanced rheumatoid arthritis. As a foul odourr to the wounds. Blistering on the left lower extremity. Patient is putting much bedbound and not walked for long time. Patient is also having contractures of the lower extremity. Review of systems: GEN.: Tired EYES: None HEENT: None NECK: None RESPIRATORY: None CARDIOVASCULAR: None GASTROINTESTINAL: None GENITOURINARY: Chronic Javier catheter MUSCULOSKELETAL: Joint pains LYMPHATICS: None HEMATOLOGICAL: None PSYCHIATRY: None NEUROLOGICAL: Weakness of both lower extremities Past medical history to include: Atrial fibrillation, moderate aortic stenosis, secondary pulmonary hypertension, hypertensive heart disease, sacral decubitus ulcers, functional quadriplegia Social history: Lives with his son and grandson. No history of smoking or alcohol. Family history: Reviewed, noncontributory to presentation Physical examination: VITAL SIGNS: 98.3, 91, 18, 93/74, 100% room air GENERAL: BMI 26.7, sitting on bed, bit tired. EYES: Pupils equal. Conjunctiva normal. HEENT: External appearance of nose and ears normal, oral cavity grossly normal. NECK: JVD not raised; masses not palpable. HEART: First and second heart sounds are normal; no edema. LUNGS: Respiratory rate normal; clear to auscultation. ABDOMEN: Soft, nontender, liver spleen not palpable, no masses palpable. Javier catheter PSYCH: Alert and oriented x3; mood and affect normal. NEUROLOGICAL: [Cranial nerves grossly intact; no facial asymmetry, decreased power of the lower extremity.. MUSCULAR skeletal: Evidence of severe RA in both the hands with ulnar deviation and prominence of metacarpophalangeal joints. Also disfiguration of the joints of the both the feet. Blisters of the left lower extremity below the knee. Wound on the right extremity. More details and nursing chart and pictures . Contractures of the lower extremity. LYMPHATICS: No lymph nodes palpable in the axilla and neck INVESTIGATIONS, reviewed in the clinical context: WBC 9.4 hemoglobin 10.7 platelets 331 UA positive for leukoesterase WBC Previous testin-D echocardiogram-EF 55-60%. Moderate aortic valve sclerosis. Moderate aortic stenosis. Moderate pulmonary hypertension. Concentric LVH Assessment and plan -Acute and chronic multiple lower extremity wounds both on the left and the right leg. More details of the nursing chart. Having failed outpatient treatment. Patient's got good peripheral pulses. Consult infectious disease. Patient is empirically started on IV vancomycin and Zosyn the ER.: -Normocytic anemia likely of chronic disease from wounds Check iron studies -Persistent atrial fibrillation , rate controlled Continue with Lopressor, eliquis -Moderate aortic stenosis, but sclerosis Follow clinically -Secondary pulmonary hypertension Follow clinically -Hypertensive heart disease Follow clinically -Functional quadriplegia Home medications resumed. IV antibiotics. Consult ID for wound management. Care was discussed with the patient. Questions answered. Given the complexity and severity of patient's condition expect the patient to be in the hospital at least for 2 overnights Past Medical History Past Medical History: Atrial Fibrillation, GI Bleed Additional Past Medical History / Comment(s): Osteomyelitis, arhtritis, Func tional quadraplegia after osteomyelitis. History of Any Multi-Drug Resistant Organisms: ESBL, MRSA Date of last positivie culture/infection: 10/10/18-MRSA; 02/25/20-ESBL E.coli MDRO Source:: Wound-MRSA (site not specified); Urine ESBL Additional Past Surgical History / Comment(s): wisdom teeth Past Psychological History: No Psychological Hx Reported Smoking Status: Unknown if ever smoked Past Alcohol Use History: None Reported Past Drug Use History: None Reported - Past Family History Mother Additional Family Medical History / Comment(s): heart disease, diabetes Medications and Allergies Home Medications Medication Instructions Recorded Confirmed Type Cyanocobalamin (Vitamin B-12) 1,000 mcg PO DAILY 03/24/20 09/09/20 History [Vitamin B-12] Folic Acid 1 mg PO DAILY 03/24/20 09/09/20 History HYDROcodone/APAP 7.5-325MG [[place] 1 tab PO Q6H PRN 03/24/20 09/09/20 History 7.5-325] Apixaban [Eliquis] 5 mg PO BID #60 tab 03/30/20 09/09/20 Rx Bacitracin Zinc Oint 1 applic TOPICAL BID 09/09/20 09/09/20 History Baclofen [Lioresal] 20 mg PO QID 09/09/20 09/09/20 History Doxycycline Hyclate 100 mg PO BID 09/09/20 09/09/20 History Ferrous Sulfate [Feosol] 325 mg PO DAILY 09/09/20 09/09/20 History Metoprolol Tartrate [Lopressor] 25 mg PO BID 09/09/20 09/09/20 History Omeprazole [PriLOSEC] 20 mg PO DAILY 09/09/20 09/09/20 History Allergies Allergy/AdvReac Type Severity Reaction Status Date / Time ciprofloxacin [From Cipro] Allergy Hallucinati Verified 09/09/20 14:18 ons Physical Exam Vitals: Vital Signs Temp Pulse Resp BP Pulse Ox 09/09/20 14:00 105 H 16 93/74 95 09/09/20 13:44 18 09/09/20 12:40 98.3 F 91 18 93/74 100 Intake and Output 09/09/20 09/09/20 09/09/20 06:59 14:59 22:59 Other: Weight 89.358 kg Results CBC & Chem 7: 09/09/20 13:43 Labs: Abnormal Lab Results - Last 24 Hours (Table) 09/09/20 09/09/20 Range/Units 13:43 13:43 Hgb 10.7 L (13.0-17.5) gm/dL Hct 33.9 L (39.0-53.0) % MCV 70.9 L (80.0-100.0) fL MCH 22.4 L (25.0-35.0) pg RDW 18.2 H (11.5-15.5) % Lymphocytes # 0.8 L (1.0-4.8) k/uL Urine Protein Trace H (Negative) Urine Blood Small H (Negative) Ur Leukocyte Esterase Large H (Negative) Urine RBC 11 H (0-5) /hpf Urine WBC >182 H (0-5) /hpf Urine WBC Clumps Many H (None) /hpf Urine Bacteria Many H (None) /hpf Urine Mucus Rare H (None) /hpf
[2020-09-09 16:05] LABS: ALT 18 U/L (4-49); AST 40 U/L (17-59); African American GFR (CKD) >90 (>60 ml/min/1.73 sqM); Albumin 2.9 g/dL (3.5-5.0); Alkaline Phosphatase 90 U/L (38-126); Anion Gap 6 mmol/L; Blood Urea Nitrogen 17 mg/dL (9-20); Calcium 8.3 mg/dL (8.4-10.2); Carbon Dioxide 28 mmol/L (22-30); Chloride 102 mmol/L (98-107); Glucose 101 mg/dL (74-99); Non-African American GFR(CKD) >90 (>60 ml/min/1.73 sqM); Sodium 136 mmol/L (137-145); Total Bilirubin 0.5 mg/dL (0.2-1.3); Total Protein 6.7 g/dL (6.3-8.2)
[2020-09-09 16:06] LABS: Potassium 5.3 mmol/L (3.5-5.1)
[2020-09-09] MEDS: SODIUM CHLORIDE 0.9% 1,000 ML IV SCH (17:35)
[2020-09-09] MEDS: BACLOFEN 10 MG TAB PO SCH ×2 (17:44→21:19)
[2020-09-09] MEDS: HYDROcodone/APAP 7.5-325MG 1 EACH TAB PO PRN (17:46)
[2020-09-09] MEDS: METOPROLOL TARTRATE 25 MG TAB PO SCH (21:19)
[2020-09-09] MEDS: VANCOMYCIN 1,500 MG in SODIUM CHLORIDE 0.9% 250 ML IVPB SCH (21:19)
[2020-09-10] MEDS ORDERED: PIPERACILLIN-TAZOBACTAM 3.375 GM in SODIUM CHLORIDE 0.9% 100 ML IVPB SCH ×2
[2020-09-10] MEDS: AMPICILLIN-SULBACTAM 3 GM in SODIUM CHLORIDE 0.9% 100 ML IVPB SCH ×5 (01:11→23:52)
[2020-09-10 05:28] LABS: % Iron Saturation 3.78 (15.00-50.00); Iron 9 ug/dL (65-175); Total Iron Binding Capacity 238 ug/dL (228-460)
[2020-09-10] MEDS: VANCOMYCIN 1,500 MG in SODIUM CHLORIDE 0.9% 250 ML IVPB SCH ×3 (05:46→21:37)
--- NOTE | 2020-09-10 07:18 | XR ---
EXAMINATION TYPE: XR chest 1V portable DATE OF EXAM: 09/10/2020 COMPARISON: NONE HISTORY: Pneumonia TECHNIQUE: Single frontal view of the chest is obtained. FINDINGS: There is prominence of the interstitium bilaterally with more focal airspace disease in the right upp er lung zone. There is elevation of the left hemidiaphragm. Cardiac silhouette is not enlarged. Low lung volumes accentuate the pulmonary vasculature and cardiomediastinal silhouette. IMPRESSION: There is prominence of the interstitium bilaterally with more focal airspace disease in the right upp er lung zone. There is elevation of the left hemidiaphragm.
--- NOTE | 2020-09-10 07:21 | CONS ---
CONSULTATION DATE OF SERVICE: 09/09/2020 REASON FOR CONSULTATION: 1. Left lower extremity multiple wounds and cellulitis. 2. Urinary tract infection. 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 The patient mentions since then the patient has not been able to walk because of twisting of his ankle as well as the knee area. The patient did mention that his ulceration of the left lower extremity resolved at that point. However, since then the patient did have occasional episodes of these ulcerations. The patient at one point was in hospice and was getting more regular care to his lower extremity wound and is almost healed up. After the patient did have overall improvement, the patient was taken off the hospice and the patient has lost his regular home care visit, mentioned the nurse shows up once every 7-8 days. The patient noticed to have worsening of his lower extremity wound with multiple ulceration and noted to have slight swelling to it with concern for secondary cellulitis. The patient was brought to the hospital for further evaluation. The patient did have multiple ulcerations to the left lower extremity. This has been getting worse for the last few weeks. The patient did have a dull aching pain to the leg wound intensity 4-5 out of 10 and no radiation. Did have some foul-smelling drainage. On presentation to the hospital, the patient was afebrile. No fever has been recorded. Subsequently the patient did have a normal white count. Creatinine was normal. The patient did have positive UA and did have a positive [place] PCR. No chest x-ray has been done. The patient did have x-rays of the foot and tibia and fibula that did not show any evidence of osteomyelitis. The patient was started on vancomycin and Zosyn. Infectious Disease was consulted for further management. The patient also had a chronic indwelling Javier catheter which the patient mentioned has not been changed in the last 31 days. REVIEW OF SYSTEMS: Positive points have been mentioned in HPI. Rest of the systems are negative. PAST MEDICAL HISTORY: Atrial fibrillation, GI bleed, osteomyelitis, arthritis, functional quadriplegia. PAST SURGICAL HISTORY: Positive for multiple debridement of the lower extremity wound and biopsy. SOCIAL HISTORY: Denies smoking, drinking, drug use. FAMILY HISTORY: Mother with history of heart disease and diabetes. ALLERGIES: CIPROFLOXACIN. MEDICATIONS: Currently the patient is on [place], Zosyn, baclofen, vitamin B12, iron sulfate, folic acid, Lopressor, Narcan, Protonix. PHYSICAL EXAMINATION: VITAL SIGNS: Blood pressure is 95/61 with a pulse of 95, temperature 98.3, he is 97% on room air. GENERAL DESCRIPTION: The patient is an elderly male lying in bed in no distress. No tachypnea or accessory muscles of respiration use. HEENT: Examination shows pallor, no scleral icterus. Oral mucous membrane is dry. NECK: Trachea central, no thyromegaly. LUNGS: Unlabored breathing, decreased intensity of breath sounds. No wheeze or crackle. HEART: S1, S2. Regular rate and rhythm. ABDOMEN: Soft, no tenderness. No guarding or rigidity. EXTREMITIES: Left lower extremity did have multiple ulcerations, superficial with some hypergranulation. No significant surrounding redness. No foul-smelling drainage was noticed. : The patient did have Javier catheter with significant amount of cloudy urine in the catheter. NEUROLOGICAL: Patient is awake, alert, oriented times three. Mood and affect normal. LABS: Hemoglobin is 10.7, white count 9.4, mild lymphopenia. BUN of 17, creatinine 0.62, 5.8. Liver enzymes are normal. Urine is positive. [place] PCR positive. Lower extremity x-rays were negative for any osteomyelitis. DIAGNOSTIC IMPRESSION: 1. Patient presented to the hospital with recurrent ulceration of the left lower extremity along with pain and discomfort and concern for secondary cellulitis. 2. Patient who did have a positive UA from a chronic indwelling Javier catheter and concern for possible Javier colonization versus urinary tract infection. 3. Positive COVID test. Does not have significant respiratory symptoms. X-rays were not done. PLAN: 1. We will keep the patient on vancomycin, Pharmacy to dose target of 15, however discontinue Zosyn to decrease risk of nephrotoxicity, and add Unasyn. 2. Local wound care to the left lower extremity wound with dry Aquacel Silver dressing. 3. Change Javier catheter. Obtain urine culture from new Javier. 4. We will obtain a CRP, procalcitonin, LDH, and a chest x-ray to further investigate his COVID-19. 5. We will follow on his clinical condition and further adjust medication if needed. Thank you for this consultation. Will follow this patient along with you. MMODL / IJN: [id number] /
[2020-09-10] MEDS: CYANOCOBALAMIN 500 MCG TAB PO SCH (08:18)
[2020-09-10] MEDS: FOLIC ACID 1 MG TAB PO SCH (08:18)
[2020-09-10] MEDS: PANTOPRAZOLE 40 MG TABLET PO SCH (08:18)
[2020-09-10] MEDS: BACLOFEN 10 MG TAB PO SCH ×4 (08:18→21:36)
[2020-09-10] MEDS: FERROUS SULFATE 325 MG TAB PO SCH (08:18)
[2020-09-10] MEDS: METOPROLOL TARTRATE 25 MG TAB PO SCH (08:18)
[2020-09-10 11:38] LABS: HCT 31.7 % (39.6-50.0); HGB 9.1 g/dL (13.0-17.0); MCH 21.2 pg (27.0-32.0); MCHC 28.7 g/dL (32.0-37.0); MCV 73.7 fL (80.0-97.0); Mean Platelet Volume 10.1 fL (9.5-12.2); Platelet Count 408 X 10*3/uL (140-440); RDW 20.5 % (11.5-14.5); WBC 8.92 X 10*3/uL (4.50-10.00)
--- NOTE | 2020-09-10 11:42 | P.CONS ---
History of Present Illness - Reason for Consult Consult date: 09/10/20 wound care - History of Present Illness this is a 75-year-old gentleman who is being seen on 4 S. for nonhealing ulcerations to multiple areas of the body. Patient has a multiple ulcerations to the left lower extremity with purulent drainage redness and pain. culture was obtained of the ulceration. Ulceration does show hyper granulation throughout. Right lateral foot ulceration measures apparently 7 x 4 x 0.2 cm, right heel ulceration measures 0.4 x 2 x 0.3 cm, toxic ulcerations are multiple ulcerations with necrotic and nonviable tissue to the wound base with no granulation seen. Excoriation and maceration noted to the periwound. Patient has had ulcerations for multiple years. He has been seen previously at [facility]. Patient was under hospice care and the wounds were improving. He is unable to come for outpatient wound care due to ransportation. Home care only comes once every 7-8 days. patient lives alone. Does not want to go to rehab. 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 History of MRSA. Review Of Systems: Constitutional: No fever, no chills, no night sweats. No weight change. No weakness, fatigue or lethargy. No daytime sleepiness. Integumentary:reports wounds, no lesions. No rash or pruritus. No unusual bruising. No change in hair or nails. Physical exam: General Appearance: Alert, cooperative, no distress, appears stated age. Skin: See HPI all other Skin color, texture, tugor normal, no rashes or lesions. Neurologic: Alert oriented x3 Assessment: 1. Nonhealing ulceration with fatty layer exposure left lower extremity 2. Stage II per right lateral foot 3. Stage II pressure ulcer right calcaneus 4. Stage II pressure ulcer coccyx Plan: 1. Apply absorptive silver to left lower extremity, right lateral foot, right heel. Observed to silver, saline moistened gauze, dry gauze rolled gauze secured with paper tape. Change Monday. Patient would benefit from a outpatient wound care treatments. However patient is declining at this time due to financial issues with transportation. Home care should continue seeing the patient to 3 times a week. 2. Coccyx ulceration: Apply honey alginate, saline moistened gauze, dry gauze, ABDs and secured with paper tape. Change Monday. 3. All other superficial ulcerations continue treated with zinc barrier cream as needed. Thank you for the consultation any questions please contact the wound care center DNP note has been reviewed and discussed with Dr. Willett and the impression and plan of care has been directed as dictated. 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 History of Any Multi-Drug Resistant Organisms: ESBL, MRSA Year Discovered:: 10/10/18-MRSA; 02/25/20-ESBL E.coli MDRO Source:: Wound-MRSA (site not specified); Urine ESBL Additional Past Surgical History / Comment(s): wisdom teeth Past Psychological History: No Psychological Hx Reported Smoking Status: Unknown if ever smoked Past Alcohol Use History: None Reported Past Drug Use History: None Reported - Past Family History Mother Additional Family Medical History / Comment(s): heart disease, diabetes Medications and Allergies Home Medications Medication Instructions Recorded Confirmed Type Cyanocobalamin (Vitamin B-12) 1,000 mcg PO DAILY 03/24/20 09/09/20 History [Vitamin B-12] Folic Acid 1 mg PO DAILY 03/24/20 09/09/20 History HYDROcodone/APAP 7.5-325MG [[place] 1 tab PO Q6H PRN 03/24/20 09/09/20 History 7.5-325] Apixaban [Eliquis] 5 mg PO BID #60 tab 03/30/20 09/09/20 Rx Bacitracin Zinc Oint 1 applic TOPICAL BID 09/09/20 09/09/20 History Baclofen [Lioresal] 20 mg PO QID 09/09/20 09/09/20 History Doxycycline Hyclate 100 mg PO BID 09/09/20 09/09/20 History Ferrous Sulfate [Feosol] 325 mg PO DAILY 09/09/20 09/09/20 History Metoprolol Tartrate [Lopressor] 25 mg PO BID 09/09/20 09/09/20 History Omeprazole [PriLOSEC] 20 mg PO DAILY 09/09/20 09/09/20 History Allergies Allergy/AdvReac Type Severity Reaction Status Date / Time ciprofloxacin [From Cipro] Allergy Hallucinati Verified 09/09/20 14:18 ons Physical Exam Vitals: Vital Signs Temp Pulse Pulse Resp BP BP Pulse Ox 09/10/20 10:01 99.3 F 96 16 93/61 98 09/10/20 08:18 106 H 09/10/20 08:15 106 H 117/69 09/10/20 05:37 98.6 F 98 18 93/60 100 09/10/20 00:35 97.4 F L 89 15 105/67 100 09/09/20 20:00 16 09/09/20 19:01 98.3 F 95 15 95/61 97 09/09/20 18:03 98.3 F 103 H 16 100/84 95 09/09/20 17:00 103 H 16 100/84 95 09/09/20 16:00 100 16 95 09/09/20 15:00 99 16 98/81 95 09/09/20 14:00 105 H 16 93/74 95 09/09/20 13:44 18 09/09/20 12:40 98.3 F 91 18 93/74 100 Intake and Output 09/09/20 09/10/20 09/10/20 22:59 06:59 14:59 Output Total 1000 Balance -1000 Output: Urine 1000 Other: Voiding Method Indwelling Catheter Indwelling Catheter Weight 89.358 kg Results CBC & Chem 7: 09/09/20 13:43 09/09/20 15:52 Labs: Abnormal Lab Results - Last 24 Hours (Table) 09/09/20 09/09/20 09/09/20 Range/Units 13:43 13:43 15:52 Hgb 10.7 L (13.0-17.5) gm/dL Hct 33.9 L (39.0-53.0) % MCV 70.9 L (80.0-100.0) fL MCH 22.4 L (25.0-35.0) pg RDW 18.2 H (11.5-15.5) % Lymphocytes # 0.8 L (1.0-4.8) k/uL D-Dimer (<0.60) mg/L FEU Sodium 136 L (137-145) mmol/L Potassium 5.3 H (3.5-5.1) mmol/L Creatinine 0.62 L (0.66-1.25) mg/dL Glucose 101 H (74-99) mg/dL Calcium 8.3 L (8.4-10.2) mg/dL Iron 9 L (65-175) ug/dL % Saturation 3.78 L (15.00-50.00) Albumin 2.9 L (3.5-5.0) g/dL Urine Protein Trace H (Negative) Urine Blood Small H (Negative) Ur Leukocyte Esterase Large H (Negative) Urine RBC 11 H (0-5) /hpf Urine WBC >182 H (0-5) /hpf Urine WBC Clumps Many H (None) /hpf Urine Bacteria Many H (None) /hpf Urine Mucus Rare H (None) /hpf Coronavirus (PCR) (Not Detectd) 09/09/20 09/10/20 Range/Units 15:52 07:00 Hgb (13.0-17.5) gm/dL Hct (39.0-53.0) % MCV (80.0-100.0) fL MCH (25.0-35.0) pg RDW (11.5-15.5) % Lymphocytes # (1.0-4.8) k/uL D-Dimer 1.03 H (<0.60) mg/L FEU Sodium (137-145) mmol/L Potassium (3.5-5.1) mmol/L Creatinine (0.66-1.25) mg/dL Glucose (74-99) mg/dL Calcium (8.4-10.2) mg/dL Iron (65-175) ug/dL % Saturation (15.00-50.00) Albumin (3.5-5.0) g/dL Urine Protein (Negative) Urine Blood (Negative) Ur Leukocyte Esterase (Negative) Urine RBC (0-5) /hpf Urine WBC (0-5) /hpf Urine WBC Clumps (None) /hpf Urine Bacteria (None) /hpf Urine Mucus (None) /hpf Coronavirus (PCR) Detected A (Not Detectd) Microbiology - Last 24 Hours (Table) 09/09/20 13:43 Gram Stain - Preliminary Foot - Right Wound Culture - Preliminary Gram Neg Bacilli 09/09/20 13:43 Urine Culture - Preliminary Urine,Voided Assessment and Plan (1) Stage II pressure ulcer of right heel Current Visit: Yes Status: Acute Code(s): L89.612 - PRESSURE ULCER OF RIGHT HEEL, STAGE 2 SNOMED Code(s): 150726017 (2) Stage II pressure ulcer of sacral region Current Visit: Yes Status: Acute Code(s): L89.152 - PRESSURE ULCER OF SACRAL REGION, STAGE 2 SNOMED Code(s): 199566694 (3) Pressure injury of right foot, stage 2 Current Visit: Yes Status: Acute Code(s): L89.892 - PRESSURE ULCER OF OTHER SITE, STAGE 2 SNOMED Code(s): 102646122 (4) Nonhealing ulcer of multiple sites of left lower extremity with fat layer exposed Current Visit: Yes Status: Acute Code(s): L97.922 - NON-PRS CHR ULC UNSP PRT OF L LOW LEG W FAT LAYER EXPOSED SNOMED Code(s): 40176352
[2020-09-10 11:58] VITALS: BMI 26.7
[2020-09-10 13:38] LABS: Basophils # (A) 0.06 X 10*3/uL (0.00-0.10); Basophils % (A) 0.7 %; Eosinophils # (A) 0.28 X 10*3/uL (0.04-0.35); Eosinophils % (A) 3.1 %; Lymphocytes # (A) 0.85 X 10*3/uL (0.90-5.00); Lymphocytes % (A) 9.5 %; Monocytes # (A) 0.46 X 10*3/uL (0.20-1.00); Monocytes % (A) 5.2 %; Neutrophils # (A) 7.25 X 10*3/uL (1.80-7.70); Neutrophils % (A) 81.3 %
[2020-09-10 13:39] LABS: Acanthocytes 2+; Microcytosis (M) 2+
[2020-09-10 14:14] LABS: Ferritin 62.5 ng/mL (22.0-322.0)
[2020-09-10 14:51] LABS: African American GFR (CKD) 101.3 (60.0-200.0); Albumin 2.7 g/dL (3.80-4.90); Albumin/Globulin Ratio 0.79 (1.60-3.17); Anion Gap 9.7 mmol/L (4.00-12.00); BUN/Creat Ratio 18.75 Ratio (12.00-20.00); C Reactive Protein 9.7 mg/dL (0.0-0.8); Calcium 8.1 mg/dL (8.7-10.3); Carbon Dioxide 23.3 mmol/L (21.6-31.8); Globulin 3.4 g/dL (1.6-3.3); Non-African American GFR(CKD) 87.4 (60.0-200.0); Total Bilirubin 0.4 mg/dL (0.3-1.2); Total Protein 6.1 g/dL (6.2-8.2)
[2020-09-10] MEDS: SODIUM CHLORIDE 0.9% 1,000 ML IV SCH (16:03)
--- NOTE | 2020-09-10 18:23 | P.PN ---
Progress Note - Text Progress Note Date: 09/10/20 Presenting complaint: Lower extremity wounds Hospital course: Patient is a 75 yo patient a hx of A fib on eliquis, Functional quadraplegia since 2015 after having osteomyelitis, patient has visiting nurses at home that taken of his wounds. The wounds have been getting worse. Both on the left and right lower extremity. He does not follow with any infectious disease physician. Patient's had a chronic Javier catheter for last 6 months. No fever no chills. Patient had advanced rheumatoid arthritis. As a foul odourr to the wounds. Blistering on the left lower extremity. Patient is putting much bedbound and not walked for long time. Patient is also having contractures of the lower extremity. Patient also had coccygeal ulceration. Local wound care was started. Patient was seen by the wound care team and infectious disease. Started on IV Unasyn and IV vancomycin. Today: Laying in bed. Oral intake fair. Dressing over the wounds. Review of systems: Was done for constitutional, cardiovascular, GI, pulmonary. relevant finding as above Active Medications Hydrocodone Bitart/Acetaminophen (Hydrocodone/Apap 7.5-325mg 1 Each Tab) 1 each PO Q6H PRN PRN Reason: Pain Last Admin: 09/09/20 17:46 Dose: 1 each Documented by: Baclofen (Baclofen 10 Mg Tab) 20 mg PO QID [facility] Last Admin: 09/10/20 17:55 Dose: 20 mg Documented by: Cyanocobalamin (Cyanocobalamin 500 Mcg Tab) 1,000 mcg PO DAILY [facility] Last Admin: 09/10/20 08:18 Dose: 1,000 mcg Documented by: Ferrous Sulfate (Ferrous Sulfate 325 Mg Tab) 325 mg PO DAILY [facility] Last Admin: 09/10/20 08:18 Dose: 325 mg Documented by: Folic Acid (Folic Acid 1 Mg Tab) 1 mg PO DAILY [facility] Last Admin: 09/10/20 08:18 Dose: 1 mg Documented by: Sodium Chloride (Saline 0.9%) 1,000 mls @ 20 mls/hr IV .Q24H [facility] Last Admin: 09/10/20 16:03 Dose: 20 mls/hr Documented by: Vancomycin HCl 1,500 mg/ (Sodium Chloride) 250 mls @ 125 mls/hr IVPB Q8H [facility] Last Admin: 09/10/20 14:23 Dose: 125 mls/hr Documented by: Ampicillin Sodium/Sulbactam (Sodium 3 gm/ Sodium Chloride) 100 mls @ 200 mls/hr IVPB Q6HR [facility] Last Admin: 09/10/20 17:56 Dose: 200 mls/hr Documented by: Metoprolol Tartrate (Metoprolol Tartrate 25 Mg Tab) 25 mg PO BID [facility] Last Admin: 09/10/20 08:18 Dose: 25 mg Documented by: Miscellaneous Information (Vancomycin Trough Due 1 Each Misc) 0 each MISCELLANE DIRECTED ONE Stop: 09/10/20 21:01 Naloxone HCl (Naloxone 0.4 Mg/Ml 1 Ml Vial) 0.2 mg IV Q2M PRN PRN Reason: Opioid Reversal Pantoprazole Sodium (Pantoprazole 40 Mg Tablet) 40 mg PO AC-BRKFST [facility] Last Admin: 09/10/20 08:18 Dose: 40 mg Documented by: Past medical history to include: Atrial fibrillation, moderate aortic stenosis, secondary pulmonary hypertension, hypertensive heart disease, sacral decubitus ulcers, functional quadriplegia Social history: Lives with his son and grandson. No history of smoking or alcohol. Family history: Reviewed, noncontributory to presentation Physical examination: VITAL SIGNS: 99.3, 96, 16, 93 x 61, 98% room air GENERAL: Reclining in bed, eating lunch EYES: Pupils equal. Conjunctiva normal. NECK: JVD not raised; masses not palpable. HEART: First and second heart sounds are normal; no edema. LUNGS: Respiratory rate normal; clear to auscultation. ABDOMEN: Soft, nontender, liver spleen not palpable, no masses palpable. Javier catheter PSYCH: Alert and oriented x3; mood and affect normal. NEUROLOGICAL: [Cranial nerves grossly intact; no facial asymmetry, decreased power of the lower extremity.. MUSCULAR skeletal: Evidence of severe RA in both the hands with ulnar deviation and prominence of metacarpophalangeal joints. Also disfiguration of the joints of the both the feet. Wound description in the nursing chart and wound care team. INVESTIGATIONS, reviewed in the clinical context: September 10: WBC 8.9 hemoglobin 9.1 and platelets 108 potassium 4 creatinine 0.8 pro-calcitonin 0.1 Allison 9 TIBC 238% saturation 3.78 ferritin 50 Wound culture: Gram-negative bacilli, Streptococcus agalactiae group B WBC 9.4 hemoglobin 10.7 platelets 331 UA positive for leukoesterase WBC Previous testin-D echocardiogram-EF 55-60%. Moderate aortic valve sclerosis. Moderate aortic stenosis. Moderate pulmonary hypertension. Concentric LVH Assessment and plan -Acute and chronic multiple lower extremity wounds both on the left and the right leg. More details of the nursing chart. Having failed outpatient treatment. Patient's got good peripheral pulses. Consult infectious disease. Patient is empirically started on IV vancomycin and Unasyn -Wound description: Nonhealing ulceration with fatty liver exposure of left lower extremity, stage II right lateral foot, stage II pressure ulcer right calcaneus, stage II pressure ulcer coccyx -Normocytic anemia likely of chronic disease from wounds Check iron studies -Persistent atrial fibrillation , rate controlled Continue with Lopressor, eliquis -Moderate aortic stenosis, but sclerosis Follow clinically -Secondary pulmonary hypertension Follow clinically -Hypertensive heart disease Follow clinically -Functional quadriplegia -Iron deficiency anemia Give IV Ferrlecit 125 mg daily for 3 days Wound care to continue. Told the nurse to order finger/as easier for the patient. IV iron for 3 days. Continue other medications. Blood pressures running the lower side with decrease the Lopressor to 12.5mg , 3 times a day
--- NOTE | 2020-09-10 19:43 | PN ---
PROGRESS NOTE DATE OF SERVICE: 09/10/2020 REASON FOR FOLLOWUP: 1. Lower extremity ulcer and cellulitis. 2. UTI. 3. Positive Covid test. INTERVAL HISTORY: Patient is afebrile. The patient is breathing comfortably on room air. The patient denies having any chest pain or cough. The patient denies having any nausea, no vomiting. No abdominal pain or any worsening pain to the lower extremity. PHYSICAL EXAMINATION: Blood pressure is 96/51 with a pulse of 88, temperature 98.4. He is 98% on room air. General description: The patient is an elderly male up in the bed in no distress. Respiratory system: Unlabored breathing, decreased intensity of breath sounds. Abdomen: Soft, no tenderness. Lower extremities: Currently wrapped up. No obvious drainage on the dressing. LABS: Hemoglobin 9.1, white count 8.92, BUN of 15, creatinine 0.8. New Javier catheter. Repeat UA was ordered, not done. DIAGNOSTIC IMPRESSION AND PLAN: 1. Patient with bilateral lower extremity ulceration, cellulitis, left greater than right. Patient local culture showing gram-negative Streptococcus agalactiae. Patient is covered with vancomycin. We will wait for the final sensitivities before adjust medications further. Local care to continue per Wound Care team. 2. Positive urinalysis, concern for possible Javier colonization versus urinary tract infection. Make sure the catheter is changed and repeat UA is obtained. 3. Positive Covid test not behaving as Covid pneumonia. The patient has received his Covid vaccination. Second vaccine was on August 18. We will check his Covid antibodies and check a PCR nasopharyngeal swab for Covid. Continue sedation for now. MMODL / IJN: [id number] /
[2020-09-10] MEDS: SODIUM FERRIC GLUCONAT-SUCROSE 125 MG in SODIUM CHLORIDE 0.9% 100 ML IVPB SCH (19:51)
[2020-09-10] MEDS ORDERED: VANCOMYCIN TROUGH DUE 1 EACH MISC MISCELLANE ONE (21:00)
[2020-09-10] MEDS: METOPROLOL TARTRATE 12.5 MG TAB PO SCH (21:36)
[2020-09-10] MEDS: HYDROcodone/APAP 7.5-325MG 1 EACH TAB PO PRN (21:37)
[2020-09-11] MEDS: HYDROcodone/APAP 7.5-325MG 1 EACH TAB PO PRN ×2 (03:32→20:48)
[2020-09-11] MEDS: AMPICILLIN-SULBACTAM 3 GM in SODIUM CHLORIDE 0.9% 100 ML IVPB SCH (05:38)
[2020-09-11 07:51] LABS: African American GFR (CKD) >90 (>60 ml/min/1.73 sqM); Non-African American GFR(CKD) 89 (>60 ml/min/1.73 sqM)
[2020-09-11] MEDS: CYANOCOBALAMIN 500 MCG TAB PO SCH (07:57)
[2020-09-11] MEDS: BACLOFEN 10 MG TAB PO SCH ×4 (07:57→20:47)
[2020-09-11] MEDS: FOLIC ACID 1 MG TAB PO SCH (07:57)
[2020-09-11] MEDS: PANTOPRAZOLE 40 MG TABLET PO SCH (07:57)
[2020-09-11] MEDS: METOPROLOL TARTRATE 12.5 MG TAB PO SCH ×3 (07:57→20:48)
[2020-09-11] MEDS: FERROUS SULFATE 325 MG TAB PO SCH (07:57)
[2020-09-11] MEDS ORDERED: VANCOMYCIN 1,500 MG in SODIUM CHLORIDE 0.9% 250 ML IVPB SCH ×2 (08:00→10:00)
--- NOTE | 2020-09-11 16:10 | P.PN ---
Progress Note - Text Progress Note Date: 09/11/20 Presenting complaint: Lower extremity wounds Hospital course: Patient is a 75 yo patient a hx of A fib on eliquis, Functional quadraplegia since 2015 after having osteomyelitis, patient has visiting nurses at home that taken of his wounds. The wounds have been getting worse. Both on the left and right lower extremity. He does not follow with any infectious disease physician. Patient's had a chronic Javier catheter for last 6 months. No fever no chills. Patient had advanced rheumatoid arthritis. As a foul odourr to the wounds. Blistering on the left lower extremity. Patient is putting much bedbound and not walked for long time. Patient is also having contractures of the lower extremity. Patient also had coccygeal ulceration. Local wound care was started. Patient was seen by the wound care team and infectious disease. Started on IV Unasyn and IV vancomycin. Today: Laying in bed. Starting a diet. Wound care continues. No fever. Review of systems: Was done for constitutional, cardiovascular, GI, pulmonary. relevant finding as above Active Medications Hydrocodone Bitart/Acetaminophen (Hydrocodone/Apap 7.5-325mg 1 Each Tab) 1 each PO Q6H PRN PRN Reason: Pain Last Admin: 09/11/20 03:32 Dose: 1 each Documented by: Baclofen (Baclofen 10 Mg Tab) 20 mg PO QID [facility] Last Admin: 09/11/20 11:58 Dose: 20 mg Documented by: Cyanocobalamin (Cyanocobalamin 500 Mcg Tab) 1,000 mcg PO DAILY [facility] Last Admin: 09/11/20 07:57 Dose: 1,000 mcg Documented by: Ferrous Sulfate (Ferrous Sulfate 325 Mg Tab) 325 mg PO DAILY [facility] Last Admin: 09/11/20 07:57 Dose: 325 mg Documented by: Folic Acid (Folic Acid 1 Mg Tab) 1 mg PO DAILY [facility] Last Admin: 09/11/20 07:57 Dose: 1 mg Documented by: Sodium Chloride (Saline 0.9%) 1,000 mls @ 20 mls/hr IV .Q24H [facility] Last Admin: 09/10/20 16:03 Dose: 20 mls/hr Documented by: Ferric Sodium Gluconate 125 mg (/ Sodium Chloride) 110 mls @ 100 mls/hr IVPB DAILY@1900 [facility] Stop: 09/12/20 20:05 Last Admin: 09/10/20 19:51 Dose: 100 mls/hr Documented by: Cefepime HCl 2 gm/ Sodium (Chloride) 100 mls @ 25 mls/hr IVPB Q8HR [facility] Metoprolol Tartrate (Metoprolol Tartrate 12.5 Mg Tab) 12.5 mg PO TID [facility] Last Admin: 09/11/20 07:57 Dose: 12.5 mg Documented by: Naloxone HCl (Naloxone 0.4 Mg/Ml 1 Ml Vial) 0.2 mg IV Q2M PRN PRN Reason: Opioid Reversal Pantoprazole Sodium (Pantoprazole 40 Mg Tablet) 40 mg PO AC-BRKFST [facility] Last Admin: 09/11/20 07:57 Dose: 40 mg Documented by: Past medical history to include: Atrial fibrillation, moderate aortic stenosis, secondary pulmonary hypertension, hypertensive heart disease, sacral decubitus ulcers, functional quadriplegia Social history: Lives with his son and grandson. No history of smoking or alcohol. Family history: Reviewed, noncontributory to presentation Physical examination: VITAL SIGNS: 98, 88, 18, 92/55, 98% room air GENERAL: Reclining in bed, eating lunch EYES: Pupils equal. Conjunctiva normal. NECK: JVD not raised; masses not palpable. HEART: First and second heart sounds are normal; no edema. LUNGS: Respiratory rate normal; clear to auscultation. ABDOMEN: Soft, nontender, liver spleen not palpable, no masses palpable. Javier catheter PSYCH: Alert and oriented x3; mood and affect normal. NEUROLOGICAL: [Cranial nerves grossly intact; no facial asymmetry, decreased power of the lower extremity.. MUSCULAR skeletal: Evidence of severe RA in both the hands with ulnar deviation and prominence of metacarpophalangeal joints. Also disfiguration of the joints of the both the feet. Wound description in the nursing chart and wound care team. INVESTIGATIONS, reviewed in the clinical context: September 10: WBC 8.9 hemoglobin 9.1 and platelets 108 potassium 4 creatinine 0.8 pro-calcitonin 0.1 Allison 9 TIBC 238% saturation 3.78 ferritin 50 Wound culture: Gram-negative bacilli, Streptococcus agalactiae group B WBC 9.4 hemoglobin 10.7 platelets 331 UA positive for leukoesterase WBC Coronavirus [PCR] detected Previous testin-D echocardiogram-EF 55-60%. Moderate aortic valve sclerosis. Moderate aortic stenosis. Moderate pulmonary hypertension. Concentric LVH Assessment and plan -Acute and chronic multiple lower extremity wounds both on the left and the right leg. More details of the nursing chart. Having failed outpatient treatment. Patient's got good peripheral pulses. Consult infectious disease. Patient is empirically started on IV vancomycin and Unasyn -Wound description: Nonhealing ulceration with fatty liver exposure of left lower extremity, stage II right lateral foot, stage II pressure ulcer right calcaneus, stage II pressure ulcer coccyx -Normocytic anemia likely of chronic disease from wounds Check iron studies -Persistent atrial fibrillation , rate controlled Continue with Lopressor, eliquis -Moderate aortic stenosis, but sclerosis Follow clinically -Secondary pulmonary hypertension Follow clinically -Hypertensive heart disease Follow clinically -Functional quadriplegia -Iron deficiency anemia Give IV Ferrlecit 125 mg daily for 3 days -COVID 19 positive. Asymptomatic Continue current medication treatment plan. Discussed with the patient. Follow with ID.
[2020-09-11] MEDS: CEFEPIME 2 GM in SODIUM CHLORIDE 0.9% 100 ML IVPB SCH (17:05)
[2020-09-11] MEDS: SODIUM CHLORIDE 0.9% 1,000 ML IV SCH (17:06)
[2020-09-11] MEDS: SODIUM FERRIC GLUCONAT-SUCROSE 125 MG in SODIUM CHLORIDE 0.9% 100 ML IVPB SCH (21:11)
[2020-09-12] MEDS: CEFEPIME 2 GM in SODIUM CHLORIDE 0.9% 100 ML IVPB SCH ×4 (00:21→23:08)
--- NOTE | 2020-09-12 06:13 | PN ---
PROGRESS NOTE DATE OF SERVICE: 09/11/2020 REASON FOR FOLLOWUP: 1. Left leg ulcer and cellulitis. 2. UTI. 3. Positive COVID test. INTERVAL HISTORY: Patient is afebrile. The patient is breathing comfortably. The patient is currently on room air. Denies having any chest pain. No shortness of breath. Minimal cough. No abdominal pain or any diarrhea. PHYSICAL EXAMINATION: Blood pressure 95/58 with a pulse 100, temperature 98.8, he is 99% on room air. General description is an elderly male lying in bed in no distress. Respiratory system: Unlabored breathing, decreased intensity of breath sounds. Heart S1, S2. Regular rate and rhythm. Abdomen is soft, no tenderness. The leg is currently dressed up. No obvious drainage on the dressing. LABS: No new labs have been obtained today. Repeat COVID test is pending. Leg culture with Citrobacter, Pseudomonas and strep. Blood culture has been negative. DIAGNOSTIC IMPRESSION/PLAN: 1. Patient with left lower extremity wound with secondary cellulitis. Culture predominantly strep and Gram-negative. Antibiotic adjusted to cefepime. Discontinue vancomycin and Unasyn. Local care to continue as ordered. 2. Patient positive UA. Repeat UA after change of Javier was requested and unfortunately not done. 3. Positive COVID test. Clinically not behaving as a COVID pneumonia. Still waiting for the PCR test, as well as antibodies. Continue supportive care. MMMULUL / IJN: [id number] /
[2020-09-12] MEDS ORDERED: VANCOMYCIN TROUGH DUE 1 EACH MISC MISCELLANE ONE (07:00)
[2020-09-12 07:57] LABS: African American GFR (CKD) >90 (>60 ml/min/1.73 sqM); Non-African American GFR(CKD) >90 (>60 ml/min/1.73 sqM)
[2020-09-12] MEDS: BACLOFEN 10 MG TAB PO SCH ×4 (08:07→21:23)
[2020-09-12] MEDS: FERROUS SULFATE 325 MG TAB PO SCH (08:07)
[2020-09-12] MEDS: FOLIC ACID 1 MG TAB PO SCH (08:07)
[2020-09-12] MEDS: METOPROLOL TARTRATE 12.5 MG TAB PO SCH ×3 (08:07→21:22)
[2020-09-12] MEDS: PANTOPRAZOLE 40 MG TABLET PO SCH (08:07)
[2020-09-12] MEDS: CYANOCOBALAMIN 500 MCG TAB PO SCH (08:07)
[2020-09-12] MEDS: HYDROcodone/APAP 7.5-325MG 1 EACH TAB PO PRN ×2 (08:18→16:12)
[2020-09-12 12:38] LABS: Appearance,Urine Cloudy (Clear); Bacteria,Urine Rare /hpf; Bilirubin,Urine Negative (Negative); Blood,Urine Small (Negative); Calcium Oxalate Crystals,Urine Occasional /hpf; Color,Urine Yellow; Glucose,Urine (UA) Negative (Negative); Ketones,Urine Trace (Negative); Leukocyte Esterase,Urine Moderate (Negative); Mucus,Urine Rare /hpf; Nitrite,Urine Negative (Negative); PH, Urine 5.5 (5.0-8.0); Protein,Urine 1+ (Negative); RBC,Urine 32 /hpf (0-5); Specific Gravity,Urine 1.027 (1.001-1.035); Urobilinogen,Urine <2.0 mg/dL (<2.0); WBC,Urine 15 /hpf (0-5)
--- NOTE | 2020-09-12 15:27 | P.PN ---
Progress Note - Text Progress Note Date: 09/12/20 Presenting complaint: Lower extremity wounds Hospital course: Patient is a 75 yo patient a hx of A fib on eliquis, Functional quadraplegia since 2015 after having osteomyelitis, patient has visiting nurses at home that taken of his wounds. The wounds have been getting worse. Both on the left and right lower extremity. He does not follow with any infectious disease physician. Patient's had a chronic Javier catheter for last 6 months. No fever no chills. Patient had advanced rheumatoid arthritis. As a foul odourr to the wounds. Blistering on the left lower extremity. Patient is putting much bedbound and not walked for long time. Patient is also having contractures of the lower extremity. Patient also had coccygeal ulceration. Local wound care was started. Patient was seen by the wound care team and infectious disease. Started on IV Unasyn and IV vancomycin. COVID 19 positive: Asymptomatic. Today: Tolerating diet. IV antibiotics. Pain control. Local wound care. Review of systems: Was done for constitutional, cardiovascular, GI, pulmonary. relevant finding as above Active Medications Hydrocodone Bitart/Acetaminophen (Hydrocodone/Apap 7.5-325mg 1 Each Tab) 1 each PO Q6H PRN PRN Reason: Pain Last Admin: 09/12/20 08:18 Dose: 1 each Documented by: Baclofen (Baclofen 10 Mg Tab) 20 mg PO QID [facility] Last Admin: 09/12/20 13:21 Dose: 20 mg Documented by: Cyanocobalamin (Cyanocobalamin 500 Mcg Tab) 1,000 mcg PO DAILY [facility] Last Admin: 09/12/20 08:07 Dose: 1,000 mcg Documented by: Ferrous Sulfate (Ferrous Sulfate 325 Mg Tab) 325 mg PO DAILY [facility] Last Admin: 09/12/20 08:07 Dose: 325 mg Documented by: Folic Acid (Folic Acid 1 Mg Tab) 1 mg PO DAILY [facility] Last Admin: 09/12/20 08:07 Dose: 1 mg Documented by: Sodium Chloride (Saline 0.9%) 1,000 mls @ 20 mls/hr IV .Q24H [facility] Last Admin: 09/11/20 17:06 Dose: 20 mls/hr Documented by: Ferric Sodium Gluconate 125 mg (/ Sodium Chloride) 110 mls @ 100 mls/hr IVPB DAILY@1900 [facility] Stop: 09/12/20 20:05 Last Admin: 09/11/20 21:11 Dose: 100 mls/hr Documented by: Cefepime HCl 2 gm/ Sodium (Chloride) 100 mls @ 25 mls/hr IVPB Q8HR [facility] Last Admin: 09/12/20 08:07 Dose: 25 mls/hr Documented by: Metoprolol Tartrate (Metoprolol Tartrate 12.5 Mg Tab) 12.5 mg PO TID [facility] Last Admin: 09/12/20 08:07 Dose: 12.5 mg Documented by: Naloxone HCl (Naloxone 0.4 Mg/Ml 1 Ml Vial) 0.2 mg IV Q2M PRN PRN Reason: Opioid Reversal Pantoprazole Sodium (Pantoprazole 40 Mg Tablet) 40 mg PO AC-BRKFST [facility] Last Admin: 09/12/20 08:07 Dose: 40 mg Documented by: Past medical history to include: Atrial fibrillation, moderate aortic stenosis, secondary pulmonary hypertension, hypertensive heart disease, sacral decubitus ulcers, functional quadriplegia Social history: Lives with his son and grandson. No history of smoking or alcohol. Family history: Reviewed, noncontributory to presentation Physical examination: VITAL SIGNS: 98.3, 81, 20, 105/60, 97% room air GENERAL: Reclining in bed, comfortable EYES: Pupils equal. Conjunctiva normal. NECK: JVD not raised; masses not palpable. HEART: First and second heart sounds are normal; no edema. LUNGS: Respiratory rate normal; clear to auscultation. ABDOMEN: Soft, nontender, liver spleen not palpable, no masses palpable. Javier catheter PSYCH: Alert and oriented x3; mood and affect normal. NEUROLOGICAL: [Cranial nerves grossly intact; no facial asymmetry, decreased power of the lower extremity.. MUSCULAR skeletal: Evidence of severe RA in both the hands with ulnar deviation and prominence of metacarpophalangeal joints. Also disfiguration of the joints of the both the feet. Wound description in the nursing chart and wound care team. INVESTIGATIONS, reviewed in the clinical context: September 10: WBC 8.9 hemoglobin 9.1 and platelets 108 potassium 4 creatinine 0.8 pro-calcitonin 0.1 Allison 9 TIBC 238% saturation 3.78 ferritin 50 Wound culture: Gram-negative bacilli, Streptococcus agalactiae group B WBC 9.4 hemoglobin 10.7 platelets 331 UA positive for leukoesterase WBC Coronavirus [PCR] detected Previous testin-D echocardiogram-EF 55-60%. Moderate aortic valve sclerosis. Moderate aortic stenosis. Moderate pulmonary hypertension. Concentric LVH Assessment and plan -Acute on chronic multiple lower extremity wounds with cellulitis both on the left and the right leg. Having failed outpatient treatment. good peripheral pulses. IV cefepime -Wound description: Nonhealing ulceration with fatty liver exposure of left lower extremity, stage II right lateral foot, stage II pressure ulcer right calcaneus, stage II pressure ulcer coccyx -Normocytic anemia likely of chronic disease from wounds Check iron studies -Persistent atrial fibrillation , rate controlled Continue with Lopressor, eliquis -Moderate aortic stenosis, but sclerosis Follow clinically -Secondary pulmonary hypertension Follow clinically -Hypertensive heart disease Follow clinically -Functional quadriplegia -Iron deficiency anemia Give IV Ferrlecit 125 mg daily for 3 days -COVID 19 positive. Asymptomatic -Questionable UTI Repeat urine culture ordered by ID Local wound care to continue. On IV cefepime. Care is discussed with the patient.
[2020-09-12] MEDS: SODIUM CHLORIDE 0.9% 1,000 ML IV SCH (15:59)
[2020-09-12] MEDS: SODIUM FERRIC GLUCONAT-SUCROSE 125 MG in SODIUM CHLORIDE 0.9% 100 ML IVPB SCH (20:11)
[2020-09-13] MEDS: CEFEPIME 2 GM in SODIUM CHLORIDE 0.9% 100 ML IVPB SCH (07:13)
[2020-09-13] MEDS: PANTOPRAZOLE 40 MG TABLET PO SCH (07:13)
[2020-09-13] MEDS: FOLIC ACID 1 MG TAB PO SCH (07:16)
[2020-09-13] MEDS: BACLOFEN 10 MG TAB PO SCH ×4 (07:16→22:47)
[2020-09-13] MEDS: FERROUS SULFATE 325 MG TAB PO SCH (07:16)
[2020-09-13] MEDS: CYANOCOBALAMIN 500 MCG TAB PO SCH (07:16)
[2020-09-13] MEDS: METOPROLOL TARTRATE 12.5 MG TAB PO SCH ×3 (07:16→22:47)
[2020-09-13] MEDS: HYDROcodone/APAP 7.5-325MG 1 EACH TAB PO PRN ×2 (07:21→23:38)
--- NOTE | 2020-09-13 08:17 | PN ---
PROGRESS NOTE DATE OF SERVICE: 09/12/2020 REASON FOR FOLLOW UP: 1. Bilateral lower extremity superficial ulceration and cellulitis. 2. UTI. 3. Positive COVID testing. INTERVAL HISTORY: Patient is afebrile. Patient is breathing comfortably. Denies having any chest pain, shortness of breath. No abdominal pain. The pain or discomfort in the lower extremities has decreased in intensity. PHYSICAL EXAMINATION: Blood pressure 105/66, pulse of 84, temperature 97.4. He is 97% on room air. General description is an elderly male lying in bed in no distress. Respiratory system: Unlabored breathing, clear to auscultation anteriorly. Heart S1, S2. Regular rate and rhythm. Abdomen is soft, no tenderness. Legs are currently dressed up with minimal drainage on the dressing. LABS: Creatinine 0.65. Repeat COVID testing is negative, antibodies are positive. IMPRESSION/PLAN: 1. Patient with bilateral lower extremity venostasis ulceration and secondary cellulitis, left greater than right. Culture with multiple pathogens. Patient is covered cefepime. Local wound care to continue. Will re-evaluate the wound to monitor and perform dressing changes. 2. Patient with a positive UA with concern for possible Javier colonization versus a catheter associated UTI. Repeat urine is currently pending. Patient is covered with cefepime. 3. Patient who did have a positive COVID test on admission, possibly a false-positive. PCR is negative and the patient does have antibodies. No need for any further workup for positive COVID test and the patient does not have any respiratory symptoms. MMODL / IJN: [id number] /
--- NOTE | 2020-09-13 13:36 | P.PN ---
Progress Note - Text Progress Note Date: 09/13/20 Presenting complaint: Lower extremity wounds Hospital course: Patient is a 75 yo patient a hx of A fib on eliquis, Functional quadraplegia since 2015 after having osteomyelitis, patient has visiting nurses at home that taken of his wounds. The wounds have been getting worse. Both on the left and right lower extremity. He does not follow with any infectious disease physician. Patient's had a chronic Javier catheter for last 6 months. No fever no chills. Patient had advanced rheumatoid arthritis. As a foul odourr to the wounds. Blistering on the left lower extremity. Patient is putting much bedbound and not walked for long time. Patient is also having contractures of the lower extremity. Patient also had coccygeal ulceration. Local wound care was started. Patient was seen by the wound care team and infectious disease. Started on IV Unasyn and IV vancomycin. COVID 19 positive: Asymptomatic. Today: Tolerating diet. IV antibiotics. Pain control. Local wound care. Review of systems: Was done for constitutional, cardiovascular, GI, pulmonary. relevant finding as above Active Medications Hydrocodone Bitart/Acetaminophen (Hydrocodone/Apap 7.5-325mg 1 Each Tab) 1 each PO Q6H PRN PRN Reason: Pain Last Admin: 09/13/20 07:21 Dose: 1 each Documented by: Baclofen (Baclofen 10 Mg Tab) 20 mg PO QID [facility] Last Admin: 09/13/20 12:59 Dose: 20 mg Documented by: Cyanocobalamin (Cyanocobalamin 500 Mcg Tab) 1,000 mcg PO DAILY [facility] Last Admin: 09/13/20 07:16 Dose: 1,000 mcg Documented by: Ferrous Sulfate (Ferrous Sulfate 325 Mg Tab) 325 mg PO DAILY [facility] Last Admin: 09/13/20 07:16 Dose: 325 mg Documented by: Folic Acid (Folic Acid 1 Mg Tab) 1 mg PO DAILY [facility] Last Admin: 09/13/20 07:16 Dose: 1 mg Documented by: Sodium Chloride (Saline 0.9%) 1,000 mls @ 20 mls/hr IV .Q24H [facility] Last Admin: 09/12/20 15:59 Dose: 20 mls/hr Documented by: Cefepime HCl 2 gm/ Sodium (Chloride) 100 mls @ 25 mls/hr IVPB Q8HR [facility] Last Admin: 09/13/20 07:13 Dose: 25 mls/hr Documented by: Metoprolol Tartrate (Metoprolol Tartrate 12.5 Mg Tab) 12.5 mg PO TID [facility] Last Admin: 09/13/20 07:16 Dose: 12.5 mg Documented by: Naloxone HCl (Naloxone 0.4 Mg/Ml 1 Ml Vial) 0.2 mg IV Q2M PRN PRN Reason: Opioid Reversal Pantoprazole Sodium (Pantoprazole 40 Mg Tablet) 40 mg PO AC-BRKFST [facility] Last Admin: 09/13/20 07:13 Dose: 40 mg Documented by: Past medical history to include: Atrial fibrillation, moderate aortic stenosis, secondary pulmonary hypertension, hypertensive heart disease, sacral decubitus ulcers, functional quadriplegia Social history: Lives with his son and grandson. No history of smoking or alcohol. Family history: Reviewed, noncontributory to presentation Physical examination: VITAL SIGNS: 98.1, 75, 18, 98.63, 96% room air GENERAL: Reclining in bed, comfortable EYES: Pupils equal. Conjunctiva normal. NECK: JVD not raised; masses not palpable. HEART: First and second heart sounds are normal; no edema. LUNGS: Respiratory rate normal; clear to auscultation. ABDOMEN: Soft, nontender, liver spleen not palpable, no masses palpable. Javier catheter PSYCH: Alert and oriented x3; mood and affect normal. NEUROLOGICAL: [Cranial nerves grossly intact; no facial asymmetry, decreased power of the lower extremity.. MUSCULAR skeletal: Evidence of severe RA in both the hands with ulnar deviation and prominence of metacarpophalangeal joints. Also disfiguration of the joints of the both the feet. Wound description in the nursing chart and wound care team. INVESTIGATIONS, reviewed in the clinical context: Repeat: The white is [PCR]: Not detected. SARS-CoV-2 antibody reactive September 10: WBC 8.9 hemoglobin 9.1 and platelets 108 potassium 4 creatinine 0.8 pro-calcitonin 0.1 Allison 9 TIBC 238% saturation 3.78 ferritin 50 Wound culture: Gram-negative bacilli, Streptococcus agalactiae group B WBC 9.4 hemoglobin 10.7 platelets 331 UA positive for leukoesterase WBC Coronavirus [PCR] detected Previous testin-D echocardiogram-EF 55-60%. Moderate aortic valve sclerosis. Moderate aortic stenosis. Moderate pulmonary hypertension. Concentric LVH Assessment and plan -Acute on chronic multiple lower extremity wounds with cellulitis both on the left and the right leg. Having failed outpatient treatment. good peripheral pulses. IV cefepime -Wound description: Nonhealing ulceration with fatty liver exposure of left lower extremity, stage II right lateral foot, stage II pressure ulcer right calcaneus, stage II pressure ulcer coccyx -Normocytic anemia likely of chronic disease from wounds Check iron studies -Persistent atrial fibrillation , rate controlled Continue with Lopressor, eliquis -Moderate aortic stenosis, but sclerosis Follow clinically -Secondary pulmonary hypertension Follow clinically -Hypertensive heart disease Follow clinically -Functional quadriplegia -Iron deficiency anemia Give IV Ferrlecit 125 mg daily for 3 days -COVID 19 positive. Repeat PCR test-negative. Antibodies positive. Patient is intubated. Like the previous infection -Questionable UTI Repeat urine culture ordered by ID Local wound care to continue. On IV cefepime. Care is discussed with the patient.
[2020-09-13] MEDS: CIPROFLOXACIN HCL 500 MG TAB PO SCH ×4 (16:00→23:03)
[2020-09-13] MEDS: SODIUM CHLORIDE 0.9% 1,000 ML IV SCH (16:31)
--- NOTE | 2020-09-13 23:20 | PN ---
PROGRESS NOTE DATE OF SERVICE: 09/13/2020. FOLLOWUP: 1. Left lower extremity ulcers and cellulitis. 2. UTI. 3. Positive Covid test. INTERVAL HISTORY: Patient is afebrile. The patient is breathing comfortably. The patient denies having any chest pain, shortness of breath or cough or abdominal pain. No worsening pain to the left lower extremity. PHYSICAL EXAMINATION: Blood pressure 133/68 with a pulse of 83, temperature 98.1. He is 96% on room air. GENERAL: The patient is an elderly male lying in no distress. Respiratory system: Unlabored breathing, clear to auscultation anteriorly. Heart S1, S2. Regular rate and rhythm the left was currently dressed. No obvious drainage on the dressing. LABS: Creatinine 0.65. Urine is negative. Blood culture negative. IMPRESSION/PLAN: 1. Patient with left lower extremity ulcer with secondary cellulitis. Culture with multiple pathogens predominantly gram-negative with Citrobacter, Pseudomonas history of agalactiae. Patient reported symptomatology with some mental status changes. Not a true allergy. Cipro will be tried. If tolerated, plan to finish therapy with oral Cipro and Keflex for a week. Local care with Aquacel Silver dressing. 2. Positive urine, possible Javier catheter associated urinary tract infection. Repeat urine is negative. 3. Positive Covid test. Repeat is negative. Initial was more likely false-positive as the patient did have evidence of antibiotics had not evidence of any antibiotics. Will need for further workup for the positive Covid testing. MMODL / IJN: [id number] /
[2020-09-14] MEDS: CYANOCOBALAMIN 500 MCG TAB PO SCH (07:57)
[2020-09-14] MEDS: FOLIC ACID 1 MG TAB PO SCH (07:57)
[2020-09-14] MEDS: METOPROLOL TARTRATE 12.5 MG TAB PO SCH ×3 (07:57→21:12)
[2020-09-14] MEDS: BACLOFEN 10 MG TAB PO SCH ×4 (07:57→21:13)
[2020-09-14] MEDS: PANTOPRAZOLE 40 MG TABLET PO SCH (07:57)
[2020-09-14] MEDS: CIPROFLOXACIN HCL 500 MG TAB PO SCH (07:57)
[2020-09-14] MEDS: FERROUS SULFATE 325 MG TAB PO SCH (07:58)
[2020-09-14] MEDS: HYDROcodone/APAP 7.5-325MG 1 EACH TAB PO PRN ×3 (12:08→23:30)
--- NOTE | 2020-09-14 13:36 | PN ---
PROGRESS NOTE DATE OF SERVICE: 09/14/2020 REASON FOR FOLLOWUP: Left lower extremity wound and cellulitis. INTERVAL HISTORY: Patient is afebrile. The patient is breathing comfortably. Patient denies having any chest pain. No shortness of breath or cough. No abdominal pain, or any worsening pain to the left leg. PHYSICAL EXAMINATION: Blood pressure 107/72 with a pulse of 93. Temperature is 97.7. He is 95% on room air. General description is an elderly male lying in bed in no distress. Respiratory system: Unlabored breathing. Clear to auscultation anteriorly. Heart S1, S2 regular rate and rhythm. Abdomen: Soft, no tenderness. Left leg wound no significant slough tissue. Surrounding redness has improved. Minimal drainage. LABS: No new labs have been obtained today. DIAGNOSTIC IMPRESSION AND PLAN: Patient with left lower extremity wound with secondary cellulitis. Culture gram- negative. The patient did not tolerate Cipro. He will get a midline and plan is for a ten day course of IV cefepime. Local care with Hydrofera Blue dressing. Advised to follow up in the [facility] with me. MMODL / IJN: [id number] /
--- NOTE | 2020-09-14 15:11 | P.PN ---
Progress Note - Text Progress Note Date: 09/14/20 Presenting complaint: Lower extremity wounds Hospital course: Patient is a 75 yo patient a hx of A fib on eliquis, Functional quadraplegia since 2015 after having osteomyelitis, patient has visiting nurses at home that taken of his wounds. The wounds have been getting worse. Both on the left and right lower extremity. He does not follow with any infectious disease physician. Patient's had a chronic Javier catheter for last 6 months. No fever no chills. Patient had advanced rheumatoid arthritis. As a foul odourr to the wounds. Blistering on the left lower extremity. Patient is putting much bedbound and not walked for long time. Patient is also having contractures of the lower extremity. Patient also had coccygeal ulceration. Local wound care was started. Patient was seen by the wound care team and infectious disease. Started on IV Unasyn and IV vancomycin. COVID 19 positive: Asymptomatic. Repeat COVID 19 PCR negative Today: Patient was tried on ciprofloxacin. Had hallucinations. Discontinued this morning. IV cefepime being resumed oral intake fair. Review of systems: Was done for constitutional, cardiovascular, GI, pulmonary. relevant finding as above Active Medications Hydrocodone Bitart/Acetaminophen (Hydrocodone/Apap 7.5-325mg 1 Each Tab) 1 each PO Q6H PRN PRN Reason: Pain Last Admin: 09/14/20 12:08 Dose: 1 each Documented by: Baclofen (Baclofen 10 Mg Tab) 20 mg PO QID [facility] Last Admin: 09/14/20 12:08 Dose: 20 mg Documented by: Cyanocobalamin (Cyanocobalamin 500 Mcg Tab) 1,000 mcg PO DAILY [facility] Last Admin: 09/14/20 07:57 Dose: 1,000 mcg Documented by: Ferrous Sulfate (Ferrous Sulfate 325 Mg Tab) 325 mg PO DAILY [facility] Last Admin: 09/14/20 07:58 Dose: 325 mg Documented by: Folic Acid (Folic Acid 1 Mg Tab) 1 mg PO DAILY [facility] Last Admin: 09/14/20 07:57 Dose: 1 mg Documented by: Sodium Chloride (Saline 0.9%) 1,000 mls @ 20 mls/hr IV .Q24H [facility] Last Admin: 09/13/20 16:31 Dose: Not Given Documented by: Cefepime HCl 2 gm/ Sodium (Chloride) 100 mls @ 25 mls/hr IVPB Q8HR [facility] Metoprolol Tartrate (Metoprolol Tartrate 12.5 Mg Tab) 12.5 mg PO TID [facility] Last Admin: 09/14/20 07:57 Dose: 12.5 mg Documented by: Naloxone HCl (Naloxone 0.4 Mg/Ml 1 Ml Vial) 0.2 mg IV Q2M PRN PRN Reason: Opioid Reversal Pantoprazole Sodium (Pantoprazole 40 Mg Tablet) 40 mg PO AC-BRKFST [facility] Last Admin: 09/14/20 07:57 Dose: 40 mg Documented by: Past medical history to include: Atrial fibrillation, moderate aortic stenosis, secondary pulmonary hypertension, hypertensive heart disease, sacral decubitus ulcers, functional quadriplegia Social history: Lives with his son and grandson. No history of smoking or alcohol. Family history: Reviewed, noncontributory to presentation Physical examination: VITAL SIGNS: 97.7, 93, 18, 107/72, 95% room air GENERAL: Reclining in bed, comfortable EYES: Pupils equal. Conjunctiva normal. NECK: JVD not raised; masses not palpable. HEART: First and second heart sounds are normal; no edema. LUNGS: Respiratory rate normal; clear to auscultation. ABDOMEN: Soft, nontender, liver spleen not palpable, no masses palpable. Javier catheter PSYCH: Alert and oriented x3; mood and affect normal. NEUROLOGICAL: [Cranial nerves grossly intact; no facial asymmetry, decreased power of the lower extremity.. MUSCULAR skeletal: Evidence of severe RA in both the hands with ulnar deviation and prominence of metacarpophalangeal joints. Also disfiguration of the joints of the both the feet. Wound description in the nursing chart and wound care team. INVESTIGATIONS, reviewed in the clinical context: Repeat: Coronavirus [PCR]: Not detected. SARS-CoV-2 antibody reactive September 10: WBC 8.9 hemoglobin 9.1 and platelets 108 potassium 4 creatinine 0.8 pro-calcitonin 0.1 Allison 9 TIBC 238% saturation 3.78 ferritin 50 Wound culture: Gram-negative bacilli, Streptococcus agalactiae group B WBC 9.4 hemoglobin 10.7 platelets 331 UA positive for leukoesterase WBC Coronavirus [PCR] detected Previous testin-D echocardiogram-EF 55-60%. Moderate aortic valve sclerosis. Moderate aortic stenosis. Moderate pulmonary hypertension. Concentric LVH Assessment and plan -Acute on chronic multiple lower extremity wounds with cellulitis both on the left and the right leg. Having failed outpatient treatment. good peripheral pulses. IV cefepime -Wound description: Nonhealing ulceration with fatty liver exposure of left lower extremity, stage II right lateral foot, stage II pressure ulcer right calcaneus, stage II pressure ulcer coccyx -Normocytic anemia likely of chronic disease from wounds Check iron studies -Persistent atrial fibrillation , rate controlled Continue with Lopressor, eliquis -Moderate aortic stenosis, but sclerosis Follow clinically -Secondary pulmonary hypertension Follow clinically -Hypertensive heart disease Follow clinically -Functional quadriplegia -Iron deficiency anemia Give IV Ferrlecit 125 mg daily for 3 days -COVID 19 positive. Repeat PCR test-negative. Antibodies positive. Patient is intubated. Like the previous infection -Questionable UTI Repeat urine culture ordered by ID Midline ordered. For 10 days of IV cefepime per ID. Discussed with patient. Discussed with nurse. manager [employer] discussed with. Total time spent today about 40 minutes with over 20 minutes of discussion
[2020-09-14] MEDS: SODIUM CHLORIDE 0.9% 1,000 ML IV SCH (15:22)
[2020-09-14] MEDS: CEFEPIME 2 GM in SODIUM CHLORIDE 0.9% 100 ML IVPB SCH ×2 (15:22→23:30)
[2020-09-15 07:55] VITALS: RESP 18
[2020-09-15] MEDS: METOPROLOL TARTRATE 12.5 MG TAB PO SCH (08:27)
[2020-09-15] MEDS: FERROUS SULFATE 325 MG TAB PO SCH (08:28)
[2020-09-15] MEDS: PANTOPRAZOLE 40 MG TABLET PO SCH (08:28)
[2020-09-15] MEDS: HYDROcodone/APAP 7.5-325MG 1 EACH TAB PO PRN (08:28)
[2020-09-15] MEDS: FOLIC ACID 1 MG TAB PO SCH (08:29)
[2020-09-15] MEDS: CEFEPIME 2 GM in SODIUM CHLORIDE 0.9% 100 ML IVPB SCH ×2 (08:29→12:56)
[2020-09-15] MEDS: CYANOCOBALAMIN 500 MCG TAB PO SCH (08:29)
[2020-09-15] MEDS: BACLOFEN 10 MG TAB PO SCH ×2 (08:37→12:41)
[2020-09-15] MEDS: SODIUM CHLORIDE 0.9% 1,000 ML IV SCH (12:56)
--- NOTE | 2020-09-15 13:19 | PN ---
PROGRESS NOTE DATE OF SERVICE: 09/15/2020 REASON FOR FOLLOWUP: Left lower extremity wound and cellulitis. INTERVAL HISTORY: Patient is afebrile. The patient is breathing comfortably. Denies having any chest pain. No shortness of breath or cough. No abdominal pain. Overall pain and discomfort to the left leg has decreased. PHYSICAL EXAMINATION: Blood pressure 110/75, pulse 94. Temperature is 97.5. He is 96% on room air. General description is an elderly male lying in bed in no distress. Respiratory system: Unlabored breathing. Clear to auscultation anteriorly. Heart S1, S2. Regular rate and rhythm. Abdomen soft, no tenderness. The left leg is currently dressed. No drainage on the dressing. DIAGNOSTIC IMPRESSION AND PLAN: Patient with left lower extremity wound and cellulitis. Cultures mostly with Gram- negative. Plan to finish therapy with cefepime as the patient could not tolerate oral Cipro. Local care will be Sue Rowe in outpatient setting and close outpatient followup. MMODL / IJN: [id number] /
[2020-09-15 14:48] VITALS: BP 108/70; PULSE 89; TEMP 98
--- NOTE | 2020-09-15 17:18 | P.DS ---
Providers Date of admission: 09/09/20 15:18 Expected date of discharge: 09/15/20 Attending physician: David Borges Consults: 09/09/20 15:18 Consult Physician Routine Consulting Provider: Carmen Boland Consult Reason/Comments: Infected ulcers Do you want consulting provider notified?: Yes Primary care physician: Thomas Hospital Course: Presenting complaint: Lower extremity wounds Hospital course: Patient is a 75 yo patient a hx of A fib on eliquis, Functional quadraplegia since 2014 after having osteomyelitis, patient has visiting nurses at home that taken of his wounds. The wounds have been getting worse. Both on the left and right lower extremity. He does not follow with any infectious disease physician. Patient's had a chronic Javier catheter for last 6 months. No fever no chills. Patient had advanced rheumatoid arthritis. As a foul odourr to the wounds. Blistering on the left lower extremity. Patient is putting much bedbound and not walked for long time. Patient is also having contractures of the lower extremity. Patient also had coccygeal ulceration. Local wound care was started. Patient was seen by the wound care team and infectious disease. Started on IV Unasyn and IV vancomycin. COVID 19 positive: Asymptomatic. Repeat COVID 19 PCR negative. Patient has elevations with ciprofloxacin. Discontinued Today: Midline. To be discharged home on IV cefepime for 10 days. Patient's family at home. Questions answered. Consultation: Dr. Boland from [facility] from wound care Past medical history to include: Atrial fibrillation, moderate aortic stenosis, secondary pulmonary hypertension, hypertensive heart disease, sacral decubitus ulcers, functional quadriplegia Social history: Lives with his son and grandson. No history of smoking or alcohol. Family history: Reviewed, noncontributory to presentation Physical examination: VITAL SIGNS: 98, 89, 18, 108/70, 92% room air GENERAL: Reclining in bed, comfortable EYES: Pupils equal. Conjunctiva normal. NECK: JVD not raised; masses not palpable. HEART: First and second heart sounds are normal; no edema. LUNGS: Respiratory rate normal; clear to auscultation. ABDOMEN: Soft, nontender, liver spleen not palpable, no masses palpable. Javier catheter PSYCH: Alert and oriented x3; mood and affect normal. NEUROLOGICAL: [Cranial nerves grossly intact; no facial asymmetry, decreased power of the lower extremity.. MUSCULAR skeletal: Evidence of severe RA in both the hands with ulnar deviation and prominence of metacarpophalangeal joints. Also disfiguration of the joints of the both the feet. Wound description in the nursing chart and wound care team. INVESTIGATIONS, reviewed in the clinical context: Repeat: Coronavirus [PCR]: Not detected. SARS-CoV-2 antibody reactive September 10: WBC 8.9 hemoglobin 9.1 and platelets 108 potassium 4 creatinine 0.8 pro-calcitonin 0.1 Allison 9 TIBC 238% saturation 3.78 ferritin 50 Wound culture: Gram-negative bacilli, Streptococcus agalactiae group B WBC 9.4 hemoglobin 10.7 platelets 331 UA positive for leukoesterase WBC Coronavirus [PCR] detected Previous testin-D echocardiogram-EF 55-60%. Moderate aortic valve sclerosis. Moderate aortic stenosis. Moderate pulmonary hypertension. Concentric LVH Assessment and plan -Acute on chronic multiple lower extremity wounds with cellulitis both on the left and the right leg. Having failed outpatient treatment. good peripheral pulses. IV cefepime-10 more days -Wound description: Nonhealing ulceration with fatty liver exposure of left lower extremity, stage II right lateral foot, stage II pressure ulcer right calcaneus, stage II pressure ulcer coccyx -Normocytic anemia likely of chronic disease from wounds Check iron studies -Persistent atrial fibrillation , rate controlled Continue with Lopressor, eliquis -Moderate aortic stenosis, but sclerosis Follow clinically -Secondary pulmonary hypertension Follow clinically -Hypertensive heart disease Follow clinically -Functional quadriplegia -Iron deficiency anemia Received IV Ferrlecit 125 mg daily for 3 days -COVID 19 positive. Repeat PCR test-negative. Antibodies positive. No treatment -Questionable UTI Patient IV cefepime Disposition: Home Plan - Discharge Summary Discharge Rx Participant: Yes New Discharge Prescriptions: New Cefepime [Maxipime] 2 gm IVPB Q8H #30 bag Metoprolol Tartrate [Lopressor] 12.5 mg PO TID #90 tab Continue Folic Acid 1 mg PO DAILY Cyanocobalamin (Vitamin B-12) [Vitamin B-12] 1,000 mcg PO DAILY HYDROcodone/APAP 7.5-325MG [[place] 7.5-325] 1 tab PO Q6H PRN PRN Reason: Pain Apixaban [Eliquis] 5 mg PO BID #60 tab Baclofen [Lioresal] 20 mg PO QID Ferrous Sulfate [Iron (65 MG Elemental)] 325 mg PO DAILY Omeprazole [PriLOSEC] 20 mg PO DAILY Discontinued Doxycycline Hyclate 100 mg PO BID Metoprolol Tartrate [Lopressor] 25 mg PO BID Bacitracin Zinc Oint 1 applic TOPICAL BID Discharge Medication List Cyanocobalamin (Vitamin B-12) [Vitamin B-12] 1,000 mcg PO DAILY 03/24/20 [History] Folic Acid 1 mg PO DAILY 03/24/20 [History] HYDROcodone/APAP 7.5-325MG [[place] 7.5-325] 1 tab PO Q6H PRN 03/24/20 [History] Apixaban [Eliquis] 5 mg PO BID #60 tab 03/30/20 [Rx] Baclofen [Lioresal] 20 mg PO QID 09/09/20 [History] Ferrous Sulfate [Iron (65 MG Elemental)] 325 mg PO DAILY 09/09/20 [History] Omeprazole [PriLOSEC] 20 mg PO DAILY 09/09/20 [History] Cefepime [Maxipime] 2 gm IVPB Q8H #30 bag 09/14/20 [Rx] Metoprolol Tartrate [Lopressor] 12.5 mg PO TID #90 tab 09/15/20 [Rx] Follow up Appointment(s)/Referral(s): Chantal Mott [NON-STAFF] - Robel Diaz MD [Primary Care Provider] - 1-2 days (office to call patient with date and time of appointment ) Patient Instructions/Handouts: Wound Infection (DC), Pressure Injury (DC) Activity/Diet/Wound Care/Special Instructions: CBC/BMP weekly - results to Dr. Boland local wound care with hydrofer blue dressing to left leg wounds , change q48hr , follow up with Dr boland in wound care , call [phone] to make an appointment [facility] Care Discharge Disposition: HOME WITH HOME HEALTH SERVICES
== END 2020-09-15 15:54 | disposition home health service (06) | DRG 592 ==
LOC: EC 12:31 → 4SSUR 15:18
PROVIDERS: ADMIT Hospitalist; ATTEND Hospitalist
PROC: 05HB33Z Insertion of Infusion Device into Right Basilic Vein, Percutaneous Approach (ICD-10-PCS; principal; 2020-09-14 12:05)
DX: L97.922 Non-pressure chronic ulcer of unspecified part of left lower leg with fat layer exposed (principal); R53.2 Functional quadriplegia; U07.1 COVID-19; I48.19 Other persistent atrial fibrillation; Z16.24 Resistance to multiple antibiotics; I83.209 Varicose veins of unspecified lower extremity with both ulcer of unspecified site and inflammation; L03.116 Cellulitis of left lower limb; N39.0 Urinary tract infection, site not specified; L97.912 Non-pressure chronic ulcer of unspecified part of right lower leg with fat layer exposed; I35.0 Nonrheumatic aortic (valve) stenosis; I27.29 Other secondary pulmonary hypertension; Z74.01 Bed confinement status; M24.59 Contracture, other specified joint; Z86.14 Personal history of Methicillin resistant Staphylococcus aureus infection; Z79.899 Other long term (current) drug therapy; Z79.01 Long term (current) use of anticoagulants; L89.612 Pressure ulcer of right heel, stage 2; L89.152 Pressure ulcer of sacral region, stage 2; L97.519 Non-pressure chronic ulcer of other part of right foot with unspecified severity; M06.9 Rheumatoid arthritis, unspecified; I11.9 Hypertensive heart disease without heart failure; M19.90 Unspecified osteoarthritis, unspecified site; D50.9 Iron deficiency anemia, unspecified
CPT/HCPCS: 36410; 36415; 71045; 76937; 80053; 80202; 81001; 82565; 82728; 83540; 83550; 83605; 83615; 84145; 85025; 85379; 85610; 85730; 86140; 86769; 87040; 87070; 87077; 87086; 87186; 87205; 87635; 93005; 96361; 96365; 99285

== ENCOUNTER 2020-09-21 21:58 | Emergency (ER) | payer MEDICARE, BC ==
[2020-09-21] MEDS ORDERED: ALTEPLASE 2 MG VIAL (CATHFLO) IV STA (22:44)
--- NOTE | 2020-09-21 23:13 | ED ---
General Adult HPI - General Chief complaint: Recheck/Abnormal Lab/Rx Stated complaint: Pic Line Issue Time Seen by Provider: 09/21/20 22:41 Source: patient, EMS Mode of arrival: EMS Limitations: no limitations - History of Present Illness Initial comments: 's patient is a 75-year-old man who presents here at advice at his home care nurse, as they were not able to infuse antibiotics through his PICC line. They were concerned that it was occluded. The patient states she is taking antibiotics at home for a foot infection. The patient states that he otherwise feels okay and he would like to go home with this issues able to be resolved. -: hour(s) Severity scale (1-10): 0 Improves with: none Worsens with: none Associated Symptoms: denies other symptoms Treatments Prior to Arrival: none - Related Data Home Medications Medication Instructions Recorded Confirmed Cyanocobalamin (Vitamin B-12) 1,000 mcg PO DAILY 03/24/20 09/09/20 [Vitamin B-12] Folic Acid 1 mg PO DAILY 03/24/20 09/09/20 HYDROcodone/APAP 7.5-325MG [[place] 1 tab PO Q6H PRN 03/24/20 09/09/20 7.5-325] Baclofen [Lioresal] 20 mg PO QID 09/09/20 09/09/20 Ferrous Sulfate [Iron (65 MG 325 mg PO DAILY 09/09/20 09/09/20 Elemental)] Omeprazole [PriLOSEC] 20 mg PO DAILY 09/09/20 09/09/20 Previous Rx's Medication Instructions Recorded Apixaban [Eliquis] 5 mg PO BID #60 tab 03/30/20 Cefepime [Maxipime] 2 gm IVPB Q8H #30 bag 09/14/20 Metoprolol Tartrate [Lopressor] 12.5 mg PO TID #90 tab 09/15/20 Allergies Allergy/AdvReac Type Severity Reaction Status Date / Time ciprofloxacin [From Cipro] Allergy Hallucinati Verified 09/09/20 14:18 ons Review of Systems ROS Statement: Those systems with pertinent positive or pertinent negative responses have been documented in the HPI. ROS Other: All systems not noted in ROS Statement are negative. Constitutional: Denies: fever, chills Respiratory: Denies: cough, dyspnea Cardiovascular: Denies: chest pain, palpitations Gastrointestinal: Denies: abdominal pain, vomiting Musculoskeletal: Denies: back pain Neurological: Denies: headache Past Medical History Past Medical History: Atrial Fibrillation, GI Bleed, Musculoskeletal Disorder, Osteoarthritis (OA) Additional Past Medical History / Comment(s): Arthritis, Functional quadraplegia after osteomyelitis. History of Any Multi-Drug Resistant Organisms: ESBL, MRSA Date of last positivie culture/infection: 10/10/18-MRSA; 02/25/20-ESBL E.coli MDRO Source:: Wound-MRSA (site not specified); Urine ESBL Additional Past Surgical History / Comment(s): wisdom teeth Past Psychological History: No Psychological Hx Reported Smoking Status: Former smoker Past Alcohol Use History: None Reported Past Drug Use History: None Reported - Past Family History Mother Additional Family Medical History / Comment(s): heart disease, diabetes General Exam Limitations: no limitations General appearance: alert, in no apparent distress Head exam: Present: atraumatic, normocephalic Eye exam: Present: normal appearance Respiratory exam: Present: normal lung sounds bilaterally. Absent: respiratory distress, wheezes, rales, rhonchi, stridor Cardiovascular Exam: Present: regular rate, normal rhythm, systolic murmur. Absent: diastolic murmur, rubs, gallop GI/Abdominal exam: Present: soft. Absent: distended, tenderness, guarding Extremities exam: Present: normal capillary refill, other (Contractures) Skin exam: Present: warm, dry, normal color. Absent: rash Course Vital Signs 09/21/20 22:03 Temperature 98 F Pulse Rate 93 Respiratory 18 Rate Blood Pressure 114/76 O2 Sat by Pulse 96 Oximetry Medical Decision Making - Medical Decision Making Per the triage notes, there is a question whether patient's family diverting some of his medications. I discussed with the patient, he would like to go home. He is not feeling any danger or neglect there. No physical signs of abuse. Will accede to patient desired to go home at this point. It does seem that further investigation can be carried out as outpatient. It does appear further investigation can be carried out as outpatient, does have visiting nurse to monitor situation. Disposition Clinical Impression: Occluded PICC line Disposition: HOME SELF-CARE Condition: Fair Instructions (If sedation given, give patient instructions): Peripherally Inserted Central Catheters and Midline Catheters in... (DC) Is patient prescribed a controlled substance at d/c from ED?: No Referrals: Robel Diaz MD [Primary Care Provider] - 1-2 days
[2020-09-22 01:28] VITALS: BP 114/80; PULSE 85; RESP 16; TEMP 98.5
== END 2020-09-22 01:28 | disposition home or self-care (01) ==
LOC: EC 21:58
DX: T82.898A Other specified complication of vascular prosthetic devices, implants and grafts, initial encounter (principal); I48.91 Unspecified atrial fibrillation; M19.90 Unspecified osteoarthritis, unspecified site; Z87.891 Personal history of nicotine dependence; Z79.01 Long term (current) use of anticoagulants
CPT/HCPCS: 99283; 96374; J2997